=== PATIENT | female | born 1960 | race American Indian/Alaskan Native ===

== ENCOUNTER 2017-11-27 12:33 | Emergency (ER) | payer MEDICAID ==
[2017-11-27] MEDS ORDERED: PROVENTIL IH ONE (12:40)
[2017-11-27] MEDS ORDERED: ATROVENT IH ONE (12:40)
--- NOTE | 2017-11-27 12:40 | Emergency Department Report ---
ED Shortness of Breath HPI - General Stated Complaint: CHEST PAIN/GIA Time Seen by Provider: 11/27/17 12:37 Source: patient - History of Present Illness Initial Comments: Ms. Swenson has hx of COPD HTN and HIV who presents with shortness of breath and chest pain. EMS informed me that she had decreased breath sounds and wheezes prior to treatment which included bronchodilator therapy and solumedrol. Ms. Swenson has sharp mid sternal pain associated with cough, no radiation, moderate severity. COPD exacerbations have been more frequent this winter season. Chest pain worse with inspiration and cough. Recent admission at [facility] for pneumococcal pna. She is on a pain management program for diabetic neuropathy. She takes Oxycodone [address] Marte. Patient lives in [place]. MD Complaint: shortness of breath, cough -: Gradual (2 days), days(s) Severity: moderate Pain Scale: 7 Quality: dull, sharp (dull sharp chest pain) Improves With: bronchodilators Known History Of: COPD, HIV - Related Data Allergies Allergy/AdvReac Type Severity Reaction Status Date / Time aspirin AdvReac Unknown Verified 11/27/17 12:54 ED Review of Systems ROS: Stated complaint: CHEST PAIN/GIA Other details as noted in HPI ED Physical Exam - General General appearance: alert, in no apparent distress - Head Head exam: Present: atraumatic, normocephalic - Eye Eye exam: Present: normal appearance - ENT ENT exam: Present: normal exam, mucous membranes moist - Neck Neck exam: Present: normal inspection - Respiratory Respiratory exam: Present: normal lung sounds bilaterally. Absent: respiratory distress, wheezes, rales, rhonchi - Cardiovascular Cardiovascular Exam: Present: regular rate, normal rhythm. Absent: systolic murmur, diastolic murmur, rubs, gallop - GI/Abdominal GI/Abdominal exam: Present: soft, normal bowel sounds. Absent: distended, tenderness, guarding, rebound - Extremities Exam Extremities exam: Present: normal inspection - Back Exam Back exam: Present: normal inspection - Neurological Exam Neurological exam: Present: alert, oriented X3 - Psychiatric Psychiatric exam: Present: normal affect, normal mood - Skin Skin exam: Present: warm, dry, intact, normal color. Absent: rash ED Course Vital Signs 11/27/17 11/27/17 11/27/17 13:55 14:02 14:09 Temperature 97.8 F Pulse Rate 94 H Pulse Rate [ Bilateral] Respiratory 24 24 24 Rate Respiratory Rate [Bilateral ] Blood Pressure 109/65 [Right] O2 Sat by Pulse 95 Oximetry 11/27/17 11/27/17 14:15 14:26 Temperature Pulse Rate Pulse Rate [ 86 88 Bilateral] Respiratory Rate Respiratory 16 16 Rate [Bilateral ] Blood Pressure [Right] O2 Sat by Pulse Oximetry ED Medical Decision Making - Lab Data Result diagrams: 11/27/17 13:16 11/27/17 13:16 - EKG Data -: EKG Interpreted by Me EKG shows normal: sinus rhythm, axis, intervals, QRS complexes, ST-T waves Rate: normal (rate 90 bpm no evidence of right heart strain, normal EKG) - Medical Decision Making Ms. Swenson presents with chest pain atypical for ACS. No indication of PE. Normal EKG. No tachycardia. Relative and patient attribute pain to heartburn. She has tried several medications. I encouraged f/u with Dr. Marte her PCP. I have provided 3 tabs of oxycodone. She is on a pain management program. She is attempting to find another pain management program. Dc'd home Critical care attestation.: If time is entered above; I have spent that time in minutes in the direct care of this critically ill patient, excluding procedure time. ED Disposition Clinical Impression: Chest pain Disposition: DC-01 TO HOME OR SELFCARE Is pt being admited?: No Does the pt Need Aspirin: No Condition: Stable Instructions: Chest Pain (ED), Noncardiac Chest Pain (ED) Referrals: PRIMARY CARE, [Primary Care Provider] - 3-5 Days Time of Disposition: 16:09
[2017-11-27] MEDS ORDERED: ZOFRAN IV ONE (12:42)
[2017-11-27] MEDS ORDERED: MORPHINE IV ONE (12:42)
[2017-11-27] MEDS ORDERED: ROXICODONE PO ONE (13:10)
[2017-11-27 13:37] LABS: Basophils % (Auto) 0.2 % (0.0-1.8); Eosinophils # (Auto) 0.1 K/mm3 (0.0-0.4); Eosinophils % (Auto) 1.6 % (0.0-4.3); Hematocrit 34.8 % (30.3-42.9); Lymphocytes # (Auto) 2.1 K/mm3 (1.2-5.4); Lymphocytes % (Auto) 36.4 % (13.4-35.0); Mean Corpuscular HGB Conc 32 % (30-34); Mean Corpuscular Hemoglobin 29 pg (28-32); Mean Corpuscular Volume 93 fl (79-97); Monocytes # (Auto) 0.3 K/mm3 (0.0-0.8); Monocytes % (Auto) 5.3 % (0.0-7.3); Platelet Count 222 K/mm3 (140-440); Red Blood Count 3.75 M/mm3 (3.65-5.03); Red Cell Distribution Width 15.3 % (13.2-15.2)
[2017-11-27 13:49] LABS: Alanine Aminotransferase 16 units/L (7-56); Albumin 3.8 g/dL (3.9-5); BUN/Creatinine Ratio 19; Blood Urea Nitrogen 13 mg/dL (7-17); Calcium 8.7 mg/dL (8.4-10.2); Hemolysis Index 0
--- NOTE | 2017-11-27 14:57 | XRay Report ---
FINAL REPORT PROCEDURE: XR CHEST 1V AP TECHNIQUE: Chest radiograph anteroposterior view. CPT 36103 HISTORY: Dyspnea COMPARISON: No prior studies are available for comparison. FINDINGS: Heart: Normal. Mediastinum/Vessels: Normal. Lungs/Pleural space: No infiltrate, effusion, or pneumothorax. Bony thorax: No acute osseous abnormality. Life support devices: None. IMPRESSION: No radiographic evidence of acute cardiopulmonary abnormality.
[2017-11-27] MEDS ORDERED: ALUM-MAG HYDROX-SIMETH 200-200-20MG/5ML PO ONE (16:05)
[2017-11-27 16:38] VITALS: BP 122/76
== END 2017-11-27 16:46 | disposition home or self-care (01) ==
LOC: ED 12:33
DX: R07.9 Chest pain, unspecified (principal)
CPT/HCPCS: 36415; 71045; 80053; 84484; 85025; 87040; 93005; 93010; 94640; 96374; 96375; 99284; J2270; J2405

== ENCOUNTER 2020-10-05 10:41 | Emergency (ER) | payer MEDICAID ==
[2020-10-05] MEDS ORDERED: MAGNESIUM SULFATE 2 GM/50 ML BAG IV ONE (11:43)
[2020-10-05] MEDS ORDERED: dexAMETHasone 20 MG/5 ML VIAL IV ONE (11:43)
[2020-10-05] MEDS ORDERED: IPRATROPIUM 0.02% NEBU 2.5 ML IH ONE ×2 (11:43)
[2020-10-05] MEDS ORDERED: ALBUTEROL 2.5 MG/3 ML NEBU IH ONE (11:43)
[2020-10-05 12:02] LABS: Basophils % (Auto) 0.5 % (0.0-1.8); Eosinophils % (Auto) 0.8 % (0.0-4.3); Hematocrit 40.4 % (30.3-42.9); Hemoglobin 13.5 gm/dl (10.1-14.3); Lymphocytes # (Auto) 2.1 K/mm3 (1.2-5.4); Lymphocytes % (Auto) 36.5 % (13.4-35.0); Mean Corpuscular HGB Conc 33 % (30-34); Mean Corpuscular Volume 91 fl (79-97); Monocytes # (Auto) 0.4 K/mm3 (0.0-0.8); Platelet Count 186 K/mm3 (140-440); Red Blood Count 4.42 M/mm3 (3.65-5.03); Red Cell Distribution Width 14.7 % (13.2-15.2)
--- NOTE | 2020-10-05 12:10 | Emergency Department Report ---
ED Shortness of Breath HPI - General Chief Complaint: Dyspnea/Respdistress Stated Complaint: ASTHMA/COLD SYM Time Seen by Provider: 10/05/20 11:43 Source: patient Mode of arrival: Ambulatory Limitations: No Limitations - History of Present Illness Initial Comments: 60-year-old -[place] female presents to the emergency room reporting shortness of breath and productive cough for few days. Patient has a past medical history of diabetes hypertension HIV. Denies any fever no chills no nausea no vomiting. MD Complaint: shortness of breath, cough Onset/Timin -: days(s) Pain Scale: 3 Consistency: constant Improves With: nothing Known History Of: diabetes, HIV - Related Data Previous Rx's Medication Instructions Recorded Last Taken Type Oxycodone HCl [Oxycodone HCl 10mg 10 mg PO Q8H PRN #3 tablet 11/27/17 Unknown Rx tab] HYDROcodone/APAP 5-325 [Draper 1 each PO Q6HR PRN #12 tablet 05/29/20 Unknown Rx 5/325] Albuterol Sulfate [Proventil Hfa] 6.7 gm IH QID #1 hfa.aer.ad 10/05/20 Unknown Rx Nitrofurantoin Barton/M-Cryst 100 mg PO Q12HR 7 Days #14 capsule 10/05/20 Unknown Rx [Macrobid CAP] predniSONE [Deltasone] 40 mg PO QDAY 5 Days #10 tab 10/05/20 Unknown Rx Allergies Allergy/AdvReac Type Severity Reaction Status Date / Time No Known Allergies Allergy Unverified 05/29/20 17:04 ED Review of Systems ROS: Stated complaint: ASTHMA/COLD SYM Other details as noted in HPI ED Past Medical Hx - Past Medical History Previous Medical History?: Yes Hx Hypertension: Yes Hx Diabetes: Yes Hx HIV: Yes Additional medical history: squamous cell carcinoma, - Surgical History Past Surgical History?: Yes Additional Surgical History: skin graft, cancer removed from vulva, d&c - Social History Smoking Status: Current Every Day Smoker Substance Use Type: Alcohol, Prescribed - Medications Home Medications: Home Medications Medication Instructions Recorded Confirmed Last Taken Type Oxycodone HCl [Oxycodone HCl 10mg 10 mg PO Q8H PRN #3 tablet 11/27/17 Unknown Rx tab] HYDROcodone/APAP 5-325 [[place]per 1 each PO Q6HR PRN #12 tablet 05/29/20 Unknown Rx 5/325] Albuterol Sulfate [Proventil Hfa] 6.7 gm IH QID #1 hfa.aer.ad 10/05/20 Unknown Rx Nitrofurantoin [place]/M-Cryst 100 mg PO Q12HR 7 Days #14 capsule 10/05/20 Unknown Rx [Macrobid CAP] predniSONE [Deltasone] 40 mg PO QDAY 5 Days #10 tab 10/05/20 Unknown Rx ED Physical Exam - General Limitations: No Limitations General appearance: alert, in no apparent distress, in distress - Head Head exam: Present: atraumatic, normocephalic - Eye Eye exam: Present: normal appearance - Respiratory Respiratory exam: Present: normal lung sounds bilaterally, respiratory distress, wheezes, rhonchi, accessory muscle use - Cardiovascular Cardiovascular Exam: Present: tachycardia - Neurological Exam Neurological exam: Present: alert, oriented X3 - Psychiatric Psychiatric exam: Present: normal affect, normal mood - Skin Skin exam: Present: warm, dry, intact, normal color. Absent: rash ED Course Vital Signs 10/05/20 10/05/20 10/05/20 10:51 12:00 15:49 Temperature 97.8 F Pulse Rate 95 H Pulse Rate [ 94 H Anterior Bilateral Throughout] Respiratory 28 H 18 Rate Respiratory 25 H Rate [Anterior Bilateral Throughout] Blood Pressure 165/89 O2 Sat by Pulse 98 Oximetry 10/05/20 15:50 Temperature Pulse Rate Pulse Rate [ Anterior Bilateral Throughout] Respiratory 18 Rate Respiratory Rate [Anterior Bilateral Throughout] Blood Pressure O2 Sat by Pulse Oximetry ED Medical Decision Making - Lab Data Result diagrams: 10/05/20 11:52 10/05/20 11:52 - Radiology Data Radiology results: report reviewed Referring Physician:JUSTICE HOLLINGSWORTHPatient Name:MICHAEL CARTAGENATPatient ID:[id number] of :[id number]:FemaleAccession:[id number] Date:3687-01-99Nvodrb Status:Finalized Findings [facility] [address] [place] [address] XRay Report Signed Patient: MICHAEL RAVI MR#: [id number] : 1960 Acct:[id number] Age/Sex: 60 / F ADM Date: 10/05/20 Loc: ED Attending Dr: Ordering Physician: RALEIGH DE LA CRUZ Date of Service: 10/05/20 Procedure(s): XR chest 1V ap Accession Number(s): [id number] cc: RALEIGH DE LA CRUZ Fluoro Time In Minutes: CHEST 1 VIEW 10/05/2020 12:28 PM INDICATION / CLINICAL INFORMATION: SOB, cough. COMPARISON: 05/29/2020 FINDINGS: SUPPORT DEVICES: None. HEART / MEDIASTINUM: No significant abnormality. LUNGS / PLEURA: No significant pulmonary or pleural abnormality. No pneumothorax. ADDITIONAL FINDINGS: No significant additional findings. IMPRESSION: 1. No acute findings. Signer Name: Johnathan Bush MD Signed: 10/05/2020 1:40 PM Workstation Name: [id number] Transcribed By: TL Dictated By: Johnathan Bush MD Electronically Authenticated By: Johnathan Bush MD Signed Date/Time: 10/05/20 1340 DD/ 1339 TD/TT: - Medical Decision Making 60-year-old -[place] female presents to the emergency room reporting shortness of breath and productive cough for few days. Patient has a past medical history of diabetes hypertension HIV. Denies any fever no chills no nausea no vomiting. Critical care attestation.: If time is entered above; I have spent that time in minutes in the direct care of this critically ill patient, excluding procedure time. ED Disposition Clinical Impression: COPD exacerbation, UTI (urinary tract infection), Chronic back pain greater than 3 months duration Disposition: DC- TO HOME OR SELFCARE Is pt being admited?: No Does the pt Need Aspirin: No Condition: Stable Instructions: Chronic Obstructive Pulmonary Disease (ED), Chronic Obstructive Pulmonary Disease Exacerbation, Edur-gr-Fhec, Urinary Tract Infection, Adult, Afad-ho-[id number] Additional Instructions: Complete antibiotics for your urinary tract infection. Continue with your chronic pain medication from the pain management provider. And use inhaler as needed for shortness of breath and cough. Follow-up with your primary care provider and specialist. Prescriptions: predniSONE [Deltasone] 40 mg PO QDAY 5 Days #10 tab Nitrofurantoin Barton/M-Cryst [Macrobid CAP] 100 mg PO Q12HR 7 Days #14 capsule Albuterol Sulfate [Proventil Hfa] 6.7 gm IH QID #1 hfa.aer.ad Referrals: PRIMARY CARE, [Primary Care Provider] - 3-5 Days Forms: Work/School Release Form(ED)
[2020-10-05 12:24] LABS: Alanine Aminotransferase 14 units/L (7-56); Albumin 3.9 g/dL (3.9-5); Blood Urea Nitrogen 9 mg/dL (7-17); Calcium 9.5 mg/dL (8.4-10.2); Hemolysis Index 4
[2020-10-05 12:25] LABS: BUN/Creatinine Ratio 15
--- NOTE | 2020-10-05 13:44 | XRay Report ---
CHEST 1 VIEW 10/05/2020 12:28 PM INDICATION / CLINICAL INFORMATION: SOB, cough. COMPARISON: 05/29/2020 FINDINGS: SUPPORT DEVICES: None. HEART / MEDIASTINUM: No significant abnormality. LUNGS / PLEURA: No significant pulmonary or pleural abnormality. No pneumothorax. ADDITIONAL FINDINGS: No significant additional findings. IMPRESSION: 1. No acute findings. Signer Name: Johnathan Bush MD Signed: 10/05/2020 1:40 PM Workstation Name: [id number]
[2020-10-05] MEDS ORDERED: IBUPROFEN 600 MG TAB PO ONE (14:34)
[2020-10-05] MEDS ORDERED: oxyCODONE 5 MG TAB PO ONE (14:52)
[2020-10-05 15:48] LABS: Bacteria,Urine 1+ /HPF (Negative); Mucus,Urine 2+ /HPF
[2020-10-05 16:06] LABS: Color,Urine Yellow (Yellow)
[2020-10-05 16:07] LABS: Bilirubin,Urine Negative (Negative); Blood,Urine Negative (Negative); Protein,Urine <30 mg dL mg/dL (Negative); Urobilinogen,Urine < 0.2 mg/dL (<2.0)
[2020-10-05 16:21] VITALS: BP 156/88
== END 2020-10-05 16:21 | disposition home or self-care (01) ==
LOC: ED 10:41
DX: J44.1 Chronic obstructive pulmonary disease with (acute) exacerbation (principal); N39.0 Urinary tract infection, site not specified; M54.5 Low back pain; G89.29 Other chronic pain; I10 Essential (primary) hypertension; E11.9 Type 2 diabetes mellitus without complications; Z21 Asymptomatic human immunodeficiency virus [HIV] infection status; F17.200 Nicotine dependence, unspecified, uncomplicated; Z98.890 Other specified postprocedural states; Z79.899 Other long term (current) drug therapy
CPT/HCPCS: 36415; 71045; 80053; 81001; 85025; 87086; 94644; 96365; 96366; 96375; 99284; J1100; J3475

== ENCOUNTER 2020-12-13 11:38 | Inpatient (IN) | payer MEDICAID ==
[2020-12-13] MEDS ORDERED: ALTEPLASE 100 MG INJ KIT IV ONE ×2 (11:49)
[2020-12-13] MEDS ORDERED: SODIUM CHLORIDE 0.9% 50 ML IVPB IV ONE (11:49)
[2020-12-13 12:08] LABS: Basophils % (Auto) 0.5 % (0.0-1.8); Eosinophils # (Auto) 0.2 K/mm3 (0.0-0.4); Eosinophils % (Auto) 3.4 % (0.0-4.3); Hematocrit 39.1 % (30.3-42.9); Hemoglobin 13.2 gm/dl (10.1-14.3); Lymphocytes % (Auto) 31.4 % (13.4-35.0); Mean Corpuscular HGB Conc 34 % (30-34); Mean Corpuscular Volume 94 fl (79-97); Monocytes # (Auto) 0.3 K/mm3 (0.0-0.8); Monocytes % (Auto) 4.9 % (0.0-7.3); Platelet Count 177 K/mm3 (140-440); Red Blood Count 4.18 M/mm3 (3.65-5.03); Red Cell Distribution Width 16.5 % (13.2-15.2)
--- NOTE | 2020-12-13 12:17 | Consultation ---
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 NIHSS 13. TPA administered w/o complication. CTA H and N ordered r/o LVO. Metrics: Last Known Well: 12/13/2020 11:00:00 [facility] Notification Time: 12/13/2020 11:25:45 Arrival Time: 12/13/2020 11:30:00 Stamp Time: 12/13/2020 11:26:21 Time First Login Attempt: 12/13/2020 11:30:21 Symptoms: left hand weakness NIHSS Start Assessment Time: 12/13/2020 11:41:00 Alteplase Early Mix Decision Time: 12/13/2020 11:44:00 Patient is a candidate for Alteplase/Activase. Alteplase Medical Decision: 12/13/2020 11:45:03 Alteplase/Activase CPOE Order Time: 12/13/2020 11:50:16 Needle Time: 12/13/2020 12:15:08 Weight Noted by Staff: 94 kg Reason for Alteplase/Activase Delay: Delays related to alteplase Administration CT head showed no acute hemorrhage or acute core infarct. Clinical Presentation is Suggestive of Large Vessel Occlusive Disease, Recommendations are as Follows CTA Head and Neck. ED Physician notified of diagnostic impression and management plan on 12/13/2020 12:15:31 Alteplase/Activase Contraindications: Last Known Well > 4.5 hours: No CT Head showing hemorrhage: No Ischemic stroke within 3 months: No Severe head trauma within 3 months: No Intracranial/intraspinal surgery within 3 months: No History of intracranial hemorrhage: No Symptoms and signs consistent with an SAH: No GI malignancy or GI bleed within 21 days: No Coagulopathy: Platelets <100 000/mm3, INR >1.7, aPTT>40 s, or PT >15 s: No Treatment dose of LMWH within the previous 24 hrs: No Use of NOACs in past 48 hours: No Glycoprotein IIb/IIIa receptor inhibitors use: No Symptoms consistent with infective endocarditis: No Suspected aortic arch dissection: No Intra-axial intracranial neoplasm: No Verbal Consent to Alteplase/Activase: I have explained to the Patient the nature of the patients condition, reviewed the indications and contraindications to the use of Alteplase/Activase fibrinolytic agent, reviewed the indications and contraindications and the benefits to be reasonably expected compared with alternative approaches. I have discussed the likelihood of major risks or complications of this procedure including (if applicable) but not limited to loss of limb function, brain damage, paralysis, hemorrhage, infection, complications from transfusion of blood components, drug reactions, blood clots and loss of life. I have also indicated that with any procedure there is always the possibility of an unexpected complication. All questions were answered and Patient express understanding of the treatment plan and consent to the treatment. Our recommendations are outlined below. Recommendations: IV Alteplase/Activase recommended. Alteplase/Activase bolus given Without Complication. IV Alteplase/Activase Total Dose 84.6 mg IV Alteplase/Activase Bolus Dose 8.5 mg IV Alteplase/Activase Infusion Dose - 76.1 mg Routine post Alteplase/Activase monitoring including neuro checks and blood pressure control during/after treatment Monitor blood pressure Check blood pressure and NIHSS every 15 min for 2 h, then every 30 min for 6 h, and finally every hour for 16 h. Manage Blood Pressure per post Alteplase/Activase protocol. Admission to ICU CT brain 24 hours post Alteplase/Activase NPO until swallowing screen performed and passed No antiplatelet agents or anticoagulants (including heparin for DVT prophylaxis) in first 24 hours No Mccormack catheter, nasogastric tube, arterial catheter or central venous catheter for 24 hr, unless absolutely necessary Telemetry Bedside swallow evaluation HOB less than 30 degrees Euglycemia Avoid hyperthermia, PRN acetaminophen DVT prophylaxis Inpatient Neurology Consultation Stroke evaluation as per inpatient neurology recommendations Discussed with ED physician History of Present Illness: Patient is a 60 year old Female. Patient was brought by EMS for symptoms of left hand weakness 60 year old woman with past medical history of hypertension, diabetes mellitus and copd, gerd and HIV presenting with acute onset left sided weakness. She uses walker at baseline. She denies taking blood thinners. She says she is prone to falls due to vertigo. Last seen normal was within 4.5 hours. There is no history of hemorrhagic complications or intracranial hemorrhage. There is no history of Recent Anticoagulants. There is no history of recent major surgery. There is no history of recent stroke. Past Medical History: Hypertension Diabetes Mellitus Hyperlipidemia Anticoagulant use: No Antiplatelet use: No Examination: BP(189/63), Pulse(100), Blood Glucose(363) 1A: Level of Consciousness - Alert; keenly responsive + 0 1B: Ask Month and Age - Both Questions Right + 0 1C: Blink Eyes & Squeeze Hands - Performs Both Tasks + 0 2: Test Horizontal Extraocular Movements - Normal + 0 3: Test Visual Infante - No Visual Loss + 0 4: Test Facial Palsy (Use Grimace if Obtunded) - Partial paralysis (lower face) + 2 5A: Test Left Arm Motor Drift - No Movement + 4 5B: Test Right Arm Motor Drift - No Drift for 10 Seconds + 0 6A: Test Left Leg Motor Drift - No Movement + 4 6B: Test Right Leg Motor Drift - No Drift for 5 Seconds + 0 7: Test Limb Ataxia (FNF/Heel-Gonzalez) - No Ataxia + 0 8: Test Sensation - Complete Loss: Cannot Sense Being Touched At All + 2 9: Test Language/Aphasia - Normal; No aphasia + 0 10: Test Dysarthria - Mild-Moderate Dysarthria: Slurring but can be understood + 1 11: Test Extinction/Inattention - No abnormality + 0 NIHSS Score: 13 Pre-Morbid Modified Ranking Scale: 3 Points = Moderate disability; requiring some help, but able to walk without assistance Patient/Family was informed the Neurology Consult would occur via TeleHealth consult by way of interactive audio and video telecommunications and consented to receiving care in this manner. Due to the immediate potential for life-threatening deterioration due to underlying acute neurologic illness, I spent 47 minutes providing critical care. This time includes time for face to face visit via telemedicine, review of medical records, imaging studies and discussion of findings with providers, the patient and/or family. Dr Jocelin Hutchison [facility] Case [id number] Medications and Allergies Allergies Allergy/AdvReac Type Severity Reaction Status Date / Time No Known Allergies Allergy Unverified 05/29/20 17:04 Home Medications Medication Instructions Recorded Confirmed Last Taken Type Oxycodone HCl [Oxycodone HCl 10mg 10 mg PO Q8H PRN #3 tablet 11/27/17 Unknown Rx tab] HYDROcodone/APAP 5-325 [[place]bell 1 each PO Q6HR PRN #12 tablet 05/29/20 Unknown Rx 5/325] Albuterol Sulfate [Proventil Hfa] 6.7 gm IH QID #1 hfa.aer.ad 10/05/20 Unknown Rx Nitrofurantoin [place]/M-Cryst 100 mg PO Q12HR 7 Days #14 capsule 10/05/20 Unknown Rx [Macrobid CAP] predniSONE [Deltasone] 40 mg PO QDAY 5 Days #10 tab 10/05/20 Unknown Rx Results - Labs CBC & Chem 7: 12/13/20 11:57 Labs: Abnormal lab results 12/13/20 Range/Units 11:57 RDW 16.5 H (13.2-15.2) %
[2020-12-13 12:20] LABS: INR 1.03 (0.87-1.13); Partial Thromboplastin Time 30.6 Sec. (24.2-36.6)
--- NOTE | 2020-12-13 12:22 | Cat Scan Report ---
CT head/brain wo con INDICATION / CLINICAL INFORMATION: 60 years Female; MAIN. TECHNIQUE: Routine CT head without contrast. All CT scans at this location are performed using CT dos e reduction for ALARA by means of automated exposure control. COMPARISON: None. FINDINGS: BRAIN / INTRACRANIAL CONTENTS: No acute hemorrhage, mass effect, midline shift, hydrocephalus, or acu te, large territorial infarct. No signs of significant atrophy or chronic infarct. No significant whi te matter abnormality seen. CRANIOCERVICAL JUNCTION: No significant abnormality. ORBITS: No significant abnormality of visualized orbits. SINUSES / MASTOIDS: Visualized paranasal sinuses and mastoid air cells are essentially clear. ADDITIONAL FINDINGS: None. IMPRESSION: 1. No focal mass, hemorrhage, hydrocephalus, or acute, large territorial infarct. CODE STROKE: Exam Completed (HOTBED TRANSFER OPERATOR/CDT): 12/13/2020 1050 AM Exam Reviewed (HOTBED TRANSFER OPERATOR/CDT): 11:10 AM Time of Communication (HOTBED TRANSFER OPERATOR/CDT): 11:15 AM Licensed Practitioner Receiving Report: Dr. Stein Signer Name: Thomas Chanel MD, III Signed: 12/13/2020 12:17 PM Workstation Name: [email or web address] [id number]
[2020-12-13 12:24] LABS: BUN/Creatinine Ratio 9; Blood Urea Nitrogen 6 mg/dL (7-17); Calcium 9.4 mg/dL (8.4-10.2); Hemolysis Index 2
--- NOTE | 2020-12-13 12:32 | Emergency Department Report ---
HPI - General Chief Complaint: Neuro Symptoms/Deficit Time Seen by Provider: 12/13/20 11:44 - HPI HPI: This is a 60-year-old -[place]iqu[place] female presents to the emergency department via EMS from home with complaint of left-sided pain, followed by left -sided weakness. This began about 40 minutes prior to presentation. It is associated with some left-sided numbness and some difficulty with her speech. The patient was found to be unable to lift or move her left arm or her left leg. She has a past medical history of HIV, diabetes, hypertension, vertigo, GERD and COPD. The patient uses a walker to ambulate at baseline. She did not take anything or receive anything for symptoms prior to presentation today. No recent travel or sick contacts at home. ED Past Medical Hx - Past Medical History Hx Hypertension: Yes Hx Diabetes: Yes Hx HIV: Yes Additional medical history: squamous cell carcinoma, - Surgical History Additional Surgical History: skin graft, cancer removed from vulva, d&c - Social History Smoking Status: Current Every Day Smoker Substance Use Type: Alcohol, Marijuana - Medications Home Medications: Home Medications Medication Instructions Recorded Confirmed Last Taken Type Oxycodone HCl [Oxycodone HCl 10mg 10 mg PO Q8H PRN #3 tablet 11/27/17 Unknown Rx tab] HYDROcodone/APAP 5-325 [Zenda 1 each PO Q6HR PRN #12 tablet 05/29/20 Unknown Rx 5/325] Albuterol Sulfate [Proventil Hfa] 6.7 gm IH QID #1 hfa.aer.ad 10/05/20 Unknown Rx Nitrofurantoin Bradford/M-Cryst 100 mg PO Q12HR 7 Days #14 capsule 10/05/20 Unknown Rx [Macrobid CAP] predniSONE [Deltasone] 40 mg PO QDAY 5 Days #10 tab 10/05/20 Unknown Rx ED Review of Systems ROS: Stated complaint: WEAK/DISORIENTED Other details as noted in HPI Comment: All other systems reviewed and negative Constitutional: denies: chills, fever Eyes: denies: eye pain, vision change ENT: denies: ear pain, throat pain Respiratory: denies: cough, shortness of breath Cardiovascular: denies: chest pain, palpitations Gastrointestinal: denies: abdominal pain, vomiting Genitourinary: denies: dysuria, discharge Musculoskeletal: myalgia. denies: back pain Skin: denies: rash, lesions Neurological: headache, weakness, numbness Physical Exam - Physical Exam Vital Signs: Vital Signs 12/13/20 12/13/20 12:21 12:22 Temperature 98.5 F Pulse Rate 100 H Respiratory 14 Rate Blood Pressure 181/91 [Left] O2 Sat by Pulse 98 Oximetry Physical Exam: GENERAL: The patient is well-developed well-nourished. HENT: Normocephalic. Atraumatic. Patient has moist mucous membranes. EYES: Extraocular motions are intact. NECK: Supple. Trachea is midline. CHEST/LUNGS: Clear to auscultation. There is no respiratory distress noted. HEART/CARDIOVASCULAR: Regular. There is no tachycardia. There is no murmur. ABDOMEN: Abdomen is soft, nontender. Patient has normal bowel sounds. There is no abdominal distention. SKIN: Skin is warm and dry. NEURO: The patient is awake, alert, and oriented. The patient is cooperative. Right-sided nasolabial fold paresis. Left-sided hemiplegia. Numbness to the left side of the face, left upper and lower extremities. MUSCULOSKELETAL: There is no tenderness or deformity. Radial pulse +2/4 and capillary refill less than 2 seconds to the bilateral upper extremities. ED Course Vital Signs 12/13/20 12/13/20 12:21 12:22 Temperature 98.5 F Pulse Rate 100 H Respiratory 14 Rate Blood Pressure 181/91 [Left] O2 Sat by Pulse 98 Oximetry - Consultations Consultation #1: 12/13/20 12:31 The patient was seen by the telemedicine neurologist, Dr. Kitchen, immediately upon arrival and through the patient's initial CT scan of the head without contrast. Dr. Kitchen give the patient a NIH stroke scale of 13. The patient is inside of the TPA window and she has recommended that that TPA be given, followed by CT angiography of the head and neck. ED Medical Decision Making - Lab Data Result diagrams: 12/13/20 11:57 12/13/20 11:57 Lab Results 12/13/20 12/13/20 12/13/20 Range/Units 11:57 11:57 11:57 WBC 6.4 (4.5-11.0) K/mm3 RBC 4.18 (3.65-5.03) M/mm3 Hgb 13.2 (10.1-14.3) gm/dl Hct 39.1 (30.3-42.9) % MCV 94 (79-97) fl MCH 32 (28-32) pg MCHC 34 (30-34) % RDW 16.5 H (13.2-15.2) % Plt Count 177 (140-440) K/mm3 Lymph % (Auto) 31.4 (13.4-35.0) % Bradford % (Auto) 4.9 (0.0-7.3) % Eos % (Auto) 3.4 (0.0-4.3) % Baso % (Auto) 0.5 (0.0-1.8) % Lymph # (Auto) 2.0 (1.2-5.4) K/mm3 Bradford # (Auto) 0.3 (0.0-0.8) K/mm3 Eos # (Auto) 0.2 (0.0-0.4) K/mm3 Baso # (Auto) 0.0 (0.0-0.1) K/mm3 Seg Neutrophils % 59.8 (40.0-70.0) % Seg Neutrophils # 3.9 (1.8-7.7) K/mm3 PT 13.3 (12.2-14.9) Sec. INR 1.03 (0.87-1.13) APTT 30.6 (24.2-36.6) Sec. Thrombin Time (15.1-19.6) Sec. Sodium 138 (137-145) mmol/L Potassium 3.9 (3.6-5.0) mmol/L Chloride 102.1 (98-107) mmol/L Carbon Dioxide 22 (22-30) mmol/L Anion Gap 18 mmol/L BUN 6 L (7-17) mg/dL Creatinine 0.7 (0.6-1.2) mg/dL Estimated GFR > 60 ml/min BUN/Creatinine Ratio 9 % Glucose 320 H (65-100) mg/dL Calcium 9.4 (8.4-10.2) mg/dL Total Bilirubin (0.1-1.2) mg/dL Direct Bilirubin (0-0.2) mg/dL Indirect Bilirubin mg/dL AST (5-40) units/L ALT (7-56) units/L Alkaline Phosphatase (35-129) units/L Ammonia (25-60) umol/L Troponin T < 0.010 (0.00-0.029) ng/mL Total Protein (6.3-8.2) g/dL Albumin (3.9-5) g/dL Albumin/Globulin Ratio % TSH (0.270-4.200) mlU/mL Urine Color (Yellow) Urine Turbidity (Clear) Urine pH (5.0-7.0) Ur Specific [place] (1.003-1.030) Urine Protein (Negative) mg/dL Urine Glucose (UA) (Negative) mg/dL Urine Ketones (Negative) mg/dL Urine Blood (Negative) Urine Nitrite (Negative) Urine Bilirubin (Negative) Urine Urobilinogen (<2.0) mg/dL Ur Leukocyte Esterase (Negative) Urine WBC (Auto) (0.0-6.0) /HPF Urine RBC (Auto) (0.0-6.0) /HPF U Epithel Cells (Auto) (0-13.0) /HPF Urine Mucus /HPF Urine Opiates Screen Urine Methadone Screen Ur Barbiturates Screen Ur Phencyclidine Scrn Ur Amphetamines Screen U Benzodiazepines Scrn Urine Cocaine Screen U Marijuana (THC) Screen Drugs of Abuse Note Plasma/Serum Alcohol (0-0.07) % 12/13/20 12/13/20 12/13/20 Range/Units 11:57 12:21 12:21 WBC (4.5-11.0) K/mm3 RBC (3.65-5.03) M/mm3 Hgb (10.1-14.3) gm/dl Hct (30.3-42.9) % MCV (79-97) fl MCH (28-32) pg MCHC (30-34) % RDW (13.2-15.2) % Plt Count (140-440) K/mm3 Lymph % (Auto) (13.4-35.0) % Bradford % (Auto) (0.0-7.3) % Eos % (Auto) (0.0-4.3) % Baso % (Auto) (0.0-1.8) % Lymph # (Auto) (1.2-5.4) K/mm3 Bradford # (Auto) (0.0-0.8) K/mm3 Eos # (Auto) (0.0-0.4) K/mm3 Baso # (Auto) (0.0-0.1) K/mm3 Seg Neutrophils % (40.0-70.0) % Seg Neutrophils # (1.8-7.7) K/mm3 PT (12.2-14.9) Sec. INR (0.87-1.13) APTT (24.2-36.6) Sec. Thrombin Time 16.9 (15.1-19.6) Sec. Sodium (137-145) mmol/L Potassium (3.6-5.0) mmol/L Chloride (98-107) mmol/L Carbon Dioxide (22-30) mmol/L Anion Gap mmol/L BUN (7-17) mg/dL Creatinine (0.6-1.2) mg/dL Estimated GFR ml/min BUN/Creatinine Ratio % Glucose (65-100) mg/dL Calcium (8.4-10.2) mg/dL Total Bilirubin < 0.20 (0.1-1.2) mg/dL Direct Bilirubin < 0.2 (0-0.2) mg/dL Indirect Bilirubin 0.0 mg/dL AST 11 (5-40) units/L ALT 32 (7-56) units/L Alkaline Phosphatase 119 (35-129) units/L Ammonia 41.0 (25-60) umol/L Troponin T (0.00-0.029) ng/mL Total Protein 7.2 (6.3-8.2) g/dL Albumin 4.0 (3.9-5) g/dL Albumin/Globulin Ratio 1.3 % TSH (0.270-4.200) mlU/mL Urine Color (Yellow) Urine Turbidity (Clear) Urine pH (5.0-7.0) Ur Specific [place] (1.003-1.030) Urine Protein (Negative) mg/dL Urine Glucose (UA) (Negative) mg/dL Urine Ketones (Negative) mg/dL Urine Blood (Negative) Urine Nitrite (Negative) Urine Bilirubin (Negative) Urine Urobilinogen (<2.0) mg/dL Ur Leukocyte Esterase (Negative) Urine WBC (Auto) (0.0-6.0) /HPF Urine RBC (Auto) (0.0-6.0) /HPF U Epithel Cells (Auto) (0-13.0) /HPF Urine Mucus /HPF Urine Opiates Screen Urine Methadone Screen Ur Barbiturates Screen Ur Phencyclidine Scrn Ur Amphetamines Screen U Benzodiazepines Scrn Urine Cocaine Screen U Marijuana (THC) Screen Drugs of Abuse Note Plasma/Serum Alcohol (0-0.07) % 12/13/20 12/13/20 12/13/20 Range/Units 12:21 12:21 13:09 WBC (4.5-11.0) K/mm3 RBC (3.65-5.03) M/mm3 Hgb (10.1-14.3) gm/dl Hct (30.3-42.9) % MCV (79-97) fl MCH (28-32) pg MCHC (30-34) % RDW (13.2-15.2) % Plt Count (140-440) K/mm3 Lymph % (Auto) (13.4-35.0) % Bradford % (Auto) (0.0-7.3) % Eos % (Auto) (0.0-4.3) % Baso % (Auto) (0.0-1.8) % Lymph # (Auto) (1.2-5.4) K/mm3 Bradford # (Auto) (0.0-0.8) K/mm3 Eos # (Auto) (0.0-0.4) K/mm3 Baso # (Auto) (0.0-0.1) K/mm3 Seg Neutrophils % (40.0-70.0) % Seg Neutrophils # (1.8-7.7) K/mm3 PT (12.2-14.9) Sec. INR (0.87-1.13) APTT (24.2-36.6) Sec. Thrombin Time (15.1-19.6) Sec. Sodium (137-145) mmol/L Potassium (3.6-5.0) mmol/L Chloride (98-107) mmol/L Carbon Dioxide (22-30) mmol/L Anion Gap mmol/L BUN (7-17) mg/dL Creatinine (0.6-1.2) mg/dL Estimated GFR ml/min BUN/Creatinine Ratio % Glucose (65-100) mg/dL Calcium (8.4-10.2) mg/dL Total Bilirubin (0.1-1.2) mg/dL Direct Bilirubin (0-0.2) mg/dL Indirect Bilirubin mg/dL AST (5-40) units/L ALT (7-56) units/L Alkaline Phosphatase (35-129) units/L Ammonia (25-60) umol/L Troponin T (0.00-0.029) ng/mL Total Protein (6.3-8.2) g/dL Albumin (3.9-5) g/dL Albumin/Globulin Ratio % TSH 0.495 (0.270-4.200) mlU/mL Urine Color Straw (Yellow) Urine Turbidity Clear (Clear) Urine pH 6.0 (5.0-7.0) Ur Specific [place] 1.022 (1.003-1.030) Urine Protein <15 mg/dl (Negative) mg/dL Urine Glucose (UA) >=500 (Negative) mg/dL Urine Ketones Neg (Negative) mg/dL Urine Blood Neg (Negative) Urine Nitrite Neg (Negative) Urine Bilirubin Neg (Negative) Urine Urobilinogen < 2.0 (<2.0) mg/dL Ur Leukocyte Esterase Neg (Negative) Urine WBC (Auto) < 1.0 (0.0-6.0) /HPF Urine RBC (Auto) 1.0 (0.0-6.0) /HPF U Epithel Cells (Auto) < 1.0 (0-13.0) /HPF Urine Mucus Few /HPF Urine Opiates Screen Urine Methadone Screen Ur Barbiturates Screen Ur Phencyclidine Scrn Ur Amphetamines Screen U Benzodiazepines Scrn Urine Cocaine Screen U Marijuana (THC) Screen Drugs of Abuse Note Plasma/Serum Alcohol < 0.01 (0-0.07) % 12/13/20 Range/Units 13:09 WBC (4.5-11.0) K/mm3 RBC (3.65-5.03) M/mm3 Hgb (10.1-14.3) gm/dl Hct (30.3-42.9) % MCV (79-97) fl MCH (28-32) pg MCHC (30-34) % RDW (13.2-15.2) % Plt Count (140-440) K/mm3 Lymph % (Auto) (13.4-35.0) % Bradford % (Auto) (0.0-7.3) % Eos % (Auto) (0.0-4.3) % Baso % (Auto) (0.0-1.8) % Lymph # (Auto) (1.2-5.4) K/mm3 Bradford # (Auto) (0.0-0.8) K/mm3 Eos # (Auto) (0.0-0.4) K/mm3 Baso # (Auto) (0.0-0.1) K/mm3 Seg Neutrophils % (40.0-70.0) % Seg Neutrophils # (1.8-7.7) K/mm3 PT (12.2-14.9) Sec. INR (0.87-1.13) APTT (24.2-36.6) Sec. Thrombin Time (15.1-19.6) Sec. Sodium (137-145) mmol/L Potassium (3.6-5.0) mmol/L Chloride (98-107) mmol/L Carbon Dioxide (22-30) mmol/L Anion Gap mmol/L BUN (7-17) mg/dL Creatinine (0.6-1.2) mg/dL Estimated GFR ml/min BUN/Creatinine Ratio % Glucose (65-100) mg/dL Calcium (8.4-10.2) mg/dL Total Bilirubin (0.1-1.2) mg/dL Direct Bilirubin (0-0.2) mg/dL Indirect Bilirubin mg/dL AST (5-40) units/L ALT (7-56) units/L Alkaline Phosphatase (35-129) units/L Ammonia (25-60) umol/L Troponin T (0.00-0.029) ng/mL Total Protein (6.3-8.2) g/dL Albumin (3.9-5) g/dL Albumin/Globulin Ratio % TSH (0.270-4.200) mlU/mL Urine Color (Yellow) Urine Turbidity (Clear) Urine pH (5.0-7.0) Ur Specific [place] (1.003-1.030) Urine Protein (Negative) mg/dL Urine Glucose (UA) (Negative) mg/dL Urine Ketones (Negative) mg/dL Urine Blood (Negative) Urine Nitrite (Negative) Urine Bilirubin (Negative) Urine Urobilinogen (<2.0) mg/dL Ur Leukocyte Esterase (Negative) Urine WBC (Auto) (0.0-6.0) /HPF Urine RBC (Auto) (0.0-6.0) /HPF U Epithel Cells (Auto) (0-13.0) /HPF Urine Mucus /HPF Urine Opiates Screen Negative Urine Methadone Screen Negative Ur Barbiturates Screen Negative Ur Phencyclidine Scrn Negative Ur Amphetamines Screen Negative U Benzodiazepines Scrn Negative Urine Cocaine Screen Negative U Marijuana (THC) Screen Positive Drugs of Abuse Note Disclamer Plasma/Serum Alcohol (0-0.07) % - Radiology Data Radiology results: report reviewed CT head/brain wo con INDICATION / CLINICAL INFORMATION: 60 years Female; MAIN. TECHNIQUE: Routine CT head without contrast. All CT scans at this location are performed using CT dose reduction for ALARA by means of automated exposure control. COMPARISON: None. FINDINGS: BRAIN / INTRACRANIAL CONTENTS: No acute hemorrhage, mass effect, midline shift, hydrocephalus, or acute, large t erritorial infarct. No signs of significant atrophy or chronic infarct. No significant white matter abnormality seen. CRANIOCERVICAL JUNCTION: No significant abnormality. ORBITS: No significant abnormality of visualized orbits. SINUSES / MASTOIDS: Visualized paranasal sinuses and mastoid air cells are essentially clear. ADDITIONAL FINDINGS: None. IMPRESSION: 1. No focal mass, hemorrhage, hydrocephalus, or acute, large territorial infarct. CT angio neck INDICATION / CLINICAL INFORMATION: 60 years Female; r/o lvo stroke alert stat. TECHNIQUE: Thin cut axial images obtained through the head during IV bolus contrast administration. Sagittal, coronal, and 3 plane MIP reconstructions performed by the technologist. NASCET type criteria used evaluate stenoses. All CT scans at this location are performed using CT dose reduction for ALARA by means of automated exposure control. COMPARISON: None available. FINDINGS: ARCH: Normal aortic arch branching suggested. CAROTID ARTERIES: The visualized common and internal carotid arteries are widely patent. VERTEBRAL ARTERIES: Codominant vertebral system seen. No significant stenosis appreciated. ADDITIONAL FINDINGS: Thyroid gland is mildly prominent size with multiple nodules seen. Mild to moderate mucosal thickening seen in the ethmo ids. Prominent soft tissue is seen in the roof the nasopharynx, presumably related to reactive adenoidal tissue. Please clinically correlate. Prominent nodes are seen in the mediastinum. There may be patchy airspace disease in the lungs as well. Please clinically correlate CT angio head INDICATION / CLINICAL INFORMATION: 60 years Female; r/o lvo stroke alert stat. TECHNIQUE: Thin cut axial images obtained through the head during IV bolus contrast administration. Sagittal, coronal, and 3 plane MIP reconstructions performed by the technologist. NASCET type criteria used evaluate stenoses. Automated exposure control utilized for radiation reduction purposes. COMPARISON: None available. FINDINGS: INTERNAL CAROTID ARTERIES: No significant narrowing appreciated. VERTEBROBASILAR SYSTEM: No significant narrowing appreciated. DISTAL BRANCHES: Distal branches of the anterior, middle, and posterior cerebral arteries are fairly symmetric in appearance and number. ANEURYSM: None identified. ADDITIONAL FINDINGS: Prominent soft tissue is seen in the roof the nasopharynx, presumably related to reactive adenoidal tissue. Please clinically correlate. IMPRESSION: No significant narrowing appreciated on this CTA of the head. - Medical Decision Making This patient presents as a code stroke with left-sided hemiplegia, left-sided numbness, and right-sided facial droop. The patient was seen by the telemedicine neurologist immediately upon arrival in through her ED visit. CT scan of the head without contrast was negative for any hemorrhage or large vessel occlusion. The patient was within the TPA window. Both myself, and the neurologist, had 2 separate but detailed discussions with the patient regarding risks versus benefits of TPA and the patient agreed with administration of TPA. After TPA was given the patient was sent for CT angiography studies of the head and neck that came back negative for any stenosis, occlusion, thrombosis, or any other acute processes. Patient's labs have been mostly unremarkable except for some hyperglycemia without signs of DKA. Patient's vital signs have been reassuring throughout her ED course. She will be admitted to the ICU for further evaluation of her CVA and post TPA care, and the patient was accepted f or admission by the hospitalist, Dr. Kaur. Critical Care Time: Yes Critical care time in (mins) excluding proc time.: 35 Critical care attestation.: If time is entered above; I have spent that time in minutes in the direct care of this critically ill patient, excluding procedure time. Critical care time was spent on this patient in doing her initial evaluation, multiple reevaluations, ordering and interpretation of labs and imaging, administration and evaluation of TPA, multiple conversations with the telemedicine neurologist, multiple conversations with the patient. Critical Care Time: 35 minutes. ED Disposition Clinical Impression: Hyperglycemia CVA (cerebral vascular accident) Qualifiers: CVA mechanism: unspecified Qualified Code(s): I63.9 - Cerebral infarction, unspecified Disposition: DC-09 OP ADMIT IP TO THIS HOSP Is pt being admited?: Yes Condition: Serious Time of Disposition: 14:35
[2020-12-13] MEDS ORDERED: IPRATROPIUM/ALBUTEROL SULFATE 3 ML AMPUL.NEB IH ONE (13:18)
[2020-12-13 13:24] LABS: Alanine Aminotransferase 32 units/L (7-56); Bilirubin,Direct < 0.2 mg/dL (0-0.2)
[2020-12-13] MEDS ORDERED: MORPHINE 4 MG/1 ML INJ IV ONE (13:24)
--- NOTE | 2020-12-13 13:43 | Cat Scan Report ---
CT angio neck INDICATION / CLINICAL INFORMATION: 60 years Female; r/o lvo stroke alert stat. TECHNIQUE: Thin cut axial images obtained through the head during IV bolus contrast administration. S agittal, coronal, and 3 plane MIP reconstructions performed by the technologist. NASCET type criteria used evaluate stenoses. All CT scans at this location are performed using CT dose reduction for ALAR A by means of automated exposure control. COMPARISON: None available. FINDINGS: ARCH: Normal aortic arch branching suggested. CAROTID ARTERIES: The visualized common and internal carotid arteries are widely patent. VERTEBRAL ARTERIES: Codominant vertebral system seen. No significant stenosis appreciated. ADDITIONAL FINDINGS: Thyroid gland is mildly prominent size with multiple nodules seen. Mild to moderate mucosal thickening seen in the ethmoids. Prominent soft tissue is seen in the roof the nasopharynx, presumably related to reactive adenoidal t issue. Please clinically correlate. Prominent nodes are seen in the mediastinum. There may be patchy airspace disease in the lungs as wel l. Please clinically correlate. IMPRESSION: No significant stenosis appreciated on this CTA of the neck. Signer Name: Thomas Chanel MD, III Signed: 12/13/2020 1:39 PM Workstation Name: [id number]
[2020-12-13 13:45] LABS: Bilirubin,Urine NEG (Negative); Blood,Urine NEG (Negative); Color,Urine Straw (Yellow); Mucus,Urine FEW /HPF; Protein,Urine <15 mg/dL mg/dL (Negative); Urobilinogen,Urine < 2.0 mg/dL (<2.0); WBC,Urine < 1.0 /HPF (0.0-6.0)
[2020-12-13 13:46] LABS: Amphetamine Screen,Urine Negative; Benzodiazepines Screen,Urine Negative; Cocaine Screen,Urine Negative; Methadone Screen,Urine Negative; Opiate Screen,Urine Negative
[2020-12-13 14:01] LABS: Cannabinoid Screen,Urine Positive
--- NOTE | 2020-12-13 14:25 | Cat Scan Report ---
CT angio head INDICATION / CLINICAL INFORMATION: 60 years Female; r/o lvo stroke alert stat. TECHNIQUE: Thin cut axial images obtained through the head during IV bolus contrast administration. S agittal, coronal, and 3 plane MIP reconstructions performed by the technologist. NASCET type criteria used evaluate stenoses. Automated exposure control utilized for radiation reduction purposes. COMPARISON: None available. FINDINGS: INTERNAL CAROTID ARTERIES: No significant narrowing appreciated. VERTEBROBASILAR SYSTEM: No significant narrowing appreciated. DISTAL BRANCHES: Distal branches of the anterior, middle, and posterior cerebral arteries are fairly symmetric in appearance and number. ANEURYSM: None identified. ADDITIONAL FINDINGS: Prominent soft tissue is seen in the roof the nasopharynx, presumably related to reactive adenoidal tissue. Please clinically correlate. IMPRESSION: No significant narrowing appreciated on this CTA of the head. Signer Name: Thomas Chanel MD, III Signed: 12/13/2020 2:20 PM Workstation Name: [id number] [id number]
--- NOTE | 2020-12-13 14:55 | History and Physical Report ---
History of Present Illness Date of examination: 12/13/20 Chief complaint: Left-sided weakness Slurred speech Right facial droop History of present illness: 60-year-old -Italian female with history of HIV, diabetes, hypertension, vertigo was brought to the emergency room from home with complaint of left-sided pain, followed by left-sided weakness. This began about 40 minutes prior to presentation. Patient complaint of some left-sided numbness and some difficulty with her speech. The patient was found to be unable to lift or move her left arm or her left leg. The patient uses a walker to ambulate at baseline. She did not take anything or receive anything for symptoms prior to presentation today. No recent travel or sick contacts at home. In the emergency room initial CT scan shows no acute intracranial abnormality. Patient is seen and evaluated by telemetry neurology and patient is status post TPA. Past History Past Medical History: COPD, diabetes, GERD, HIV/AIDS Medications and Allergies Allergies Allergy/AdvReac Type Severity Reaction Status Date / Time No Known Allergies Allergy Unverified 05/29/20 17:04 Home Medications Medication Instructions Recorded Confirmed Last Taken Type Oxycodone HCl [Oxycodone HCl 10mg 10 mg PO Q8H PRN #3 tablet 11/27/17 Unknown Rx tab] HYDROcodone/APAP 5-325 [[place] 1 each PO Q6HR PRN #12 tablet 05/29/20 Unknown Rx 5/325] Albuterol Sulfate [Proventil Hfa] 6.7 gm IH QID #1 hfa.aer.ad 10/05/20 Unknown Rx Nitrofurantoin Wright/M-Cryst 100 mg PO Q12HR 7 Days #14 capsule 10/05/20 Unknown Rx [Macrobid CAP] predniSONE [Deltasone] 40 mg PO QDAY 5 Days #10 tab 10/05/20 Unknown Rx Review of Systems Neurological: paralysis, numbness, tingling, change in speech, balance difficulties, gait dysfunction Exam - Constitutional Vitals: Temp Pulse Resp BP Pulse Ox 98.5 F 93 H 15 147/83 100 12/13/20 12:22 12/13/20 14:25 12/13/20 14:25 12/13/20 14:25 12/13/20 14:25 General appearance: Present: no acute distress, well-nourished - EENT Eyes: Present: PERRL ENT: hearing intact, clear oral mucosa - Neck Neck: Present: supple, normal ROM - Respiratory Respiratory effort: normal Respiratory: bilateral: CTA - Cardiovascular Heart Sounds: Present: S1 & S2. Absent: rub, click - Extremities Extremities: pulses symmetrical, No edema Peripheral Pulses: within normal limits - Abdominal General gastrointestinal: Present: soft, non-tender, non-distended, normal bowel sounds Female genitourinary: Present: normal - Integumentary Integumentary: Present: clear, warm, dry - Musculoskeletal Musculoskeletal: gait normal, strength equal bilaterally - Psychiatric Psychiatric: appropriate mood/affect, intact judgment & insight - Neurologic Neurologic: CNII-XII intact, no moves all extremities, no gait normal (Left- sided weakness and numbness. Slurred speech and right facial droop) HEART Score - HEART Score Troponin: Troponin T < 0.010 ng/mL (0.00-0.029) 12/13/20 11:57 Results - Labs CBC & Chem 7: 12/13/20 11:57 12/13/20 11:57 Labs: Laboratory Last Values WBC 6.4 K/mm3 (4.5-11.0) 12/13/20 11:57 RBC 4.18 M/mm3 (3.65-5.03) 12/13/20 11:57 Hgb 13.2 gm/dl (10.1-14.3) 12/13/20 11:57 Hct 39.1 % (30.3-42.9) 12/13/20 11:57 MCV 94 fl (79-97) 12/13/20 11:57 MCH 32 pg (28-32) 12/13/20 11:57 MCHC 34 % (30-34) 12/13/20 11:57 RDW 16.5 % (13.2-15.2) H 12/13/20 11:57 Plt Count 177 K/mm3 (140-440) 12/13/20 11:57 Lymph % (Auto) 31.4 % (13.4-35.0) 12/13/20 11:57 Wright % (Auto) 4.9 % (0.0-7.3) 12/13/20 11:57 Eos % (Auto) 3.4 % (0.0-4.3) 12/13/20 11:57 Baso % (Auto) 0.5 % (0.0-1.8) 12/13/20 11:57 Lymph # (Auto) 2.0 K/mm3 (1.2-5.4) 12/13/20 11:57 Wright # (Auto) 0.3 K/mm3 (0.0-0.8) 12/13/20 11:57 Eos # (Auto) 0.2 K/mm3 (0.0-0.4) 12/13/20 11:57 Baso # (Auto) 0.0 K/mm3 (0.0-0.1) 12/13/20 11:57 Seg Neutrophils % 59.8 % (40.0-70.0) 12/13/20 11:57 Seg Neutrophils # 3.9 K/mm3 (1.8-7.7) 12/13/20 11:57 PT 13.3 Sec. (12.2-14.9) 12/13/20 11:57 INR 1.03 (0.87-1.13) 12/13/20 11:57 APTT 30.6 Sec. (24.2-36.6) 12/13/20 11:57 Thrombin Time 16.9 Sec. (15.1-19.6) 12/13/20 11:57 Sodium 138 mmol/L (137-145) 12/13/20 11:57 Potassium 3.9 mmol/L (3.6-5.0) 12/13/20 11:57 Chloride 102.1 mmol/L (98-107) 12/13/20 11:57 Carbon Dioxide 22 mmol/L (22-30) 12/13/20 11:57 Anion Gap 18 mmol/L 12/13/20 11:57 BUN 6 mg/dL (7-17) L 12/13/20 11:57 Creatinine 0.7 mg/dL (0.6-1.2) 12/13/20 11:57 Estimated GFR > 60 ml/min 12/13/20 11:57 BUN/Creatinine Ratio 9 % 12/13/20 11:57 Glucose 320 mg/dL (65-100) H 12/13/20 11:57 Calcium 9.4 mg/dL (8.4-10.2) 12/13/20 11:57 Total Bilirubin < 0.20 mg/dL (0.1-1.2) 12/13/20 12:21 Direct Bilirubin < 0.2 mg/dL (0-0.2) 12/13/20 12:21 Indirect Bilirubin 0.0 mg/dL 12/13/20 12:21 AST 11 units/L (5-40) 12/13/20 12:21 ALT 32 units/L (7-56) 12/13/20 12:21 Alkaline Phosphatase 119 units/L (35-129) 12/13/20 12:21 Ammonia 41.0 umol/L (25-60) 12/13/20 12:21 Troponin T < 0.010 ng/mL (0.00-0.029) 12/13/20 11:57 Total Protein 7.2 g/dL (6.3-8.2) 12/13/20 12:21 Albumin 4.0 g/dL (3.9-5) 12/13/20 12:21 Albumin/Globulin Ratio 1.3 % 12/13/20 12:21 TSH 0.495 mlU/mL (0.270-4.200) 12/13/20 12:21 Urine Color Straw (Yellow) 12/13/20 13:09 Urine Turbidity Clear (Clear) 12/13/20 13:09 Urine pH 6.0 (5.0-7.0) 12/13/20 13:09 Ur Specific [place] 1.022 (1.003-1.030) 12/13/20 13:09 Urine Protein <15 mg/dl mg/dL (Negative) 12/13/20 13:09 Urine Glucose (UA) >=500 mg/dL (Negative) 12/13/20 13:09 Urine Ketones Neg mg/dL (Negative) 12/13/20 13:09 Urine Blood Neg (Negative) 12/13/20 13:09 Urine Nitrite Neg (Negative) 12/13/20 13:09 Urine Bilirubin Neg (Negative) 12/13/20 13:09 Urine Urobilinogen < 2.0 mg/dL (<2.0) 12/13/20 13:09 Ur Leukocyte Esterase Neg (Negative) 12/13/20 13:09 Urine WBC (Auto) < 1.0 /HPF (0.0-6.0) 12/13/20 13:09 Urine RBC (Auto) 1.0 /HPF (0.0-6.0) 12/13/20 13:09 U Epithel Cells (Auto) < 1.0 /HPF (0-13.0) 12/13/20 13:09 Urine Mucus Few /HPF 12/13/20 13:09 Urine Opiates Screen Negative 12/13/20 13:09 Urine Methadone Screen Negative 12/13/20 13:09 Ur Barbiturates Screen Negative 12/13/20 13:09 Ur Phencyclidine Scrn Negative 12/13/20 13:09 Ur Amphetamines Screen Negative 12/13/20 13:09 U Benzodiazepines Scrn Negative 12/13/20 13:09 Urine Cocaine Screen Negative 12/13/20 13:09 U Marijuana (THC) Screen Positive 12/13/20 13:09 Drugs of Abuse Note Disclamer 12/13/20 13:09 Plasma/Serum Alcohol < 0.01 % (0-0.07) 12/13/20 12:21 - Imaging and Cardiology CT Scan - head: image reviewed Assessment and Plan - Patient Problems (1) CVA (cerebral vascular accident) Current Visit: Yes Status: Acute Plan to address problem: Admit the patient to the ICU. Put the patient on CVA pathway. Patient is seen and evaluated by telemetry neurology. Patient is status post TPA. Lipitor 80 mg p.o. daily. We will hold aspirin for first 24 hours. Will consult PT OT and speech evaluation. We also consult neurology. We order MRI of the brain MRA of the brain and neck with and without contrast. We also ordered echocardiogram and carotid Doppler. SCD for DVT prophylaxis and Protonix 40 mg p.o. daily for GI prophylaxis. Patient is a full code (2) Diabetes 1.5, managed as type 2 Current Visit: Yes Status: Acute Plan to address problem: We will keep the patient nothing by mouth until seen by speech evaluation. Patient is on normal saline at the rate of 100 cc/h. We put the patient in Humalog sliding scale every 6 hours. Recheck CBC BMP in the morning (3) Hypertension Current Visit: Yes Status: Acute Plan to address problem: We will monitor the blood pressure closely. Patient is on hydralazine 10 mg IV every 6 hours as needed. (4) GERD (gastroesophageal reflux disease) Current Visit: Yes Status: Acute Plan to address problem: Patient is on Protonix 40 mg p.o. daily. (5) COPD (chronic obstructive pulmonary disease) Current Visit: Yes Status: Acute Plan to address problem: Patient is on oxygen by nasal cannula 3 L/min. DuoNeb by nebulizer every 4 hours as needed (6) DVT prophylaxis Current Visit: Yes Status: Acute Plan to address problem: Patient is status post TPA. We will put the patient on SCD for DVT prophylaxis.
[2020-12-13] MEDS ORDERED: DEXTROSE 50% IN WATER (25GM) 50 ML SYRINGE IV PRN (15:00)
[2020-12-13] MEDS ORDERED: ACETAMINOPHEN 325 MG TAB PO PRN (15:12)
[2020-12-13] MEDS: SODIUM CHLORIDE 0.9% 1000 ML 1,000 ML IV SCH (15:19)
[2020-12-13] MEDS: MORPHINE 4 MG/1 ML INJ IV PRN ×2 (16:22→20:07)
--- NOTE | 2020-12-13 16:26 | Cat Scan Report ---
CT head/brain wo con INDICATION: headache. TECHNIQUE: Routine CT head without contrast. All CT scans at this location are performed using CT dos e reduction for ALARA by means of automated exposure control. COMPARISON: 12/13/2020 CTA head FINDINGS: BRAIN / INTRACRANIAL CONTENTS: No acute hemorrhage, mass effect, midline shift, or hydrocephalus. No appreciable acute large territorial or lacunar infarct. No chronic infarct or focal atrophy. Normal b rain volume and ventricular/sulcal size for age. No extra-axial blood or fluid collections. Partially empty sella. ORBITS: No significant abnormality of visualized orbits. SINUSES / MASTOIDS: No significant abnormality of visualized sinuses and mastoid air cells. ADDITIONAL FINDINGS: Anterior subluxation of the mandibular condyles, symmetric. IMPRESSION: 1. No acute intracranial abnormality. 2. Partially empty sella morphology. This can be seen in setting of a opacification intracranial hype rtension in a patient with chronic headaches. 3. Anterior subluxation of the mandibular condyles, symmetric. Signer Name: Osmar Najera MD Signed: 12/13/2020 4:22 PM Workstation Name: [id number]
[2020-12-13] MEDS: ALBUTEROL 2.5 MG/3 ML NEBU IH SCH ×2 (17:17→21:30)
[2020-12-13] MEDS ORDERED: ALBUTEROL 8.5 GM MDI INHALATION IH SCH (18:00)
[2020-12-13] MEDS: INSULIN LISPRO 100 UNIT/ML SUB-Q SCH (18:25)
[2020-12-13] MEDS ORDERED: NITROFURANTOIN MONOHYD/M-CRYST 100 MG CAP PO SCH (22:00)
[2020-12-14] MEDS: INSULIN LISPRO 100 UNIT/ML SUB-Q SCH ×5 (00:34→23:20)
[2020-12-14] MEDS: MORPHINE 4 MG/1 ML INJ IV PRN ×4 (00:37→12:00)
[2020-12-14] MEDS ORDERED: PETROLATUM,WHITE 30 GM OINT TP PRN (02:22)
[2020-12-14] MEDS: SODIUM CHLORIDE 0.9% 1000 ML 1,000 ML IV SCH (03:34)
[2020-12-14] MEDS ORDERED: diphenhydrAMINE 50 MG/ML VIAL IV PRN (04:29)
[2020-12-14 06:50] LABS: Chol/HDL Ratio 5.7 %
[2020-12-14] MEDS: ALBUTEROL 2.5 MG/3 ML NEBU IH SCH ×3 (07:13→21:07)
[2020-12-14] MEDS ORDERED: predniSONE 20 MG TAB PO SCH (10:00)
--- NOTE | 2020-12-14 12:19 | Progress Note ---
Assessment and Plan Assessment and plan: 60-year-old -Congolese female with history of HIV, diabetes, hypertension, vertigo was brought to the emergency room from home with complaint of left-sided pain, followed by left-sided weakness. This began about 40 minutes prior to presentation. Patient complaint of some left-sided numbness and some difficulty with her speech. The patient was found to be unable to lift or move her left arm or her left leg. The patient uses a walker to ambulate at baseline. She did not take anything or receive anything for symptoms prior to presentation today. No recent travel or sick contacts at home. In the emergency room initial CT scan shows no acute intracranial abnormality. Patient is seen and evaluated by telemetry neurology and patient is status post TPA. #CVA Status post TPA Post TP CT head ordered Start aspirin 81 mg daily after 24 hours post SURVEY STATISTICIAN Continue statins Neurology evaluation MRI brain, MRA head and neck ordered Echocardiogram with bubble study pending Speech evaluation PT/OT Advised patient to stop tobacco abuse #DM Continue insulin #Hypertension Permissive hypertension for now # HIV Continue home medications #GERD Continue PPI #COPD: Continue oxygen supplementation Albuterol as needed #Tobacco abuse Spent more than 10 minutes counseling patient on need to stop tobacco abuse #DVT prophylaxis-SCDs for now History Interval history: 12/04. Patient seen and examined at bedside in ICU Speech is slightly slowed but is much better Left-sided weakness has resolved status post TPA Awaiting complete neurologic studies-MRI, MRA head and neck, echocardiogram Hospitalist Physical - Physical exam Narrative exam: VITAL SIGNS: Reviewed. GENERAL: Awake HEAD: No signs of head trauma. EYES: Pupils are equal. Extraocular motions intact. MOUTH: Oropharynx is normal. NECK: No adenopathy, no JVD. CHEST: Chest with diminished breath sounds bilaterally. No wheezes, rales, or rhonchi. CARDIAC: normal S1 and S2, without murmurs, gallops, or rubs. ABDOMEN: Soft, non tender and non distended. No rebound or guarding, and no masses palpated. Bowel Sounds normal. MUSCULOSKELETAL: No edema NEUROLOGIC EXAM: Alert and oriented x3. Speech slightly slurred. Left-sided weakness resolved SKIN: No obvious lesions - Constitutional Vitals: Temp Pulse Resp BP Pulse Ox 98.6 F 102 H 24 177/97 95 12/14/20 03:13 12/14/20 10:51 12/14/20 10:51 12/13/20 18:41 12/14/20 10:51 HEART Score - HEART Score Troponin: Troponin T < 0.010 ng/mL (0.00-0.029) 12/13/20 11:57 Results - Labs CBC & Chem 7: 12/13/20 11:57 12/13/20 11:57 Labs: Laboratory Last Values WBC 6.4 K/mm3 (4.5-11.0) 12/13/20 11:57 RBC 4.18 M/mm3 (3.65-5.03) 12/13/20 11:57 Hgb 13.2 gm/dl (10.1-14.3) 12/13/20 11:57 Hct 39.1 % (30.3-42.9) 12/13/20 11:57 MCV 94 fl (79-97) 12/13/20 11:57 MCH 32 pg (28-32) 12/13/20 11:57 MCHC 34 % (30-34) 12/13/20 11:57 RDW 16.5 % (13.2-15.2) H 12/13/20 11:57 Plt Count 177 K/mm3 (140-440) 12/13/20 11:57 Lymph % (Auto) 31.4 % (13.4-35.0) 12/13/20 11:57 [place] % (Auto) 4.9 % (0.0-7.3) 12/13/20 11:57 Eos % (Auto) 3.4 % (0.0-4.3) 12/13/20 11:57 Baso % (Auto) 0.5 % (0.0-1.8) 12/13/20 11:57 Lymph # (Auto) 2.0 K/mm3 (1.2-5.4) 12/13/20 11:57 [place] # (Auto) 0.3 K/mm3 (0.0-0.8) 12/13/20 11:57 Eos # (Auto) 0.2 K/mm3 (0.0-0.4) 12/13/20 11:57 Baso # (Auto) 0.0 K/mm3 (0.0-0.1) 12/13/20 11:57 Seg Neutrophils % 59.8 % (40.0-70.0) 12/13/20 11:57 Seg Neutrophils # 3.9 K/mm3 (1.8-7.7) 12/13/20 11:57 PT 13.3 Sec. (12.2-14.9) 12/13/20 11:57 INR 1.03 (0.87-1.13) 12/13/20 11:57 APTT 30.6 Sec. (24.2-36.6) 12/13/20 11:57 Thrombin Time 16.9 Sec. (15.1-19.6) 12/13/20 11:57 Sodium 138 mmol/L (137-145) 12/13/20 11:57 Potassium 3.9 mmol/L (3.6-5.0) 12/13/20 11:57 Chloride 102.1 mmol/L (98-107) 12/13/20 11:57 Carbon Dioxide 22 mmol/L (22-30) 12/13/20 11:57 Anion Gap 18 mmol/L 12/13/20 11:57 BUN 6 mg/dL (7-17) L 12/13/20 11:57 Creatinine 0.7 mg/dL (0.6-1.2) 12/13/20 11:57 Estimated GFR > 60 ml/min 12/13/20 11:57 BUN/Creatinine Ratio 9 % 12/13/20 11:57 Glucose 320 mg/dL (65-100) H 12/13/20 11:57 POC Glucose 179 mg/dL (70-105) H 12/14/20 11:49 Calcium 9.4 mg/dL (8.4-10.2) 12/13/20 11:57 Total Bilirubin < 0.20 mg/dL (0.1-1.2) 12/13/20 12:21 Direct Bilirubin < 0.2 mg/dL (0-0.2) 12/13/20 12:21 Indirect Bilirubin 0.0 mg/dL 12/13/20 12:21 AST 11 units/L (5-40) 12/13/20 12:21 ALT 32 units/L (7-56) 12/13/20 12:21 Alkaline Phosphatase 119 units/L (35-129) 12/13/20 12:21 Ammonia 41.0 umol/L (25-60) 12/13/20 12:21 Troponin T < 0.010 ng/mL (0.00-0.029) 12/13/20 11:57 Total Protein 7.2 g/dL (6.3-8.2) 12/13/20 12:21 Albumin 4.0 g/dL (3.9-5) 12/13/20 12:21 Albumin/Globulin Ratio 1.3 % 12/13/20 12:21 Triglycerides 274 mg/dL (2-149) H 12/14/20 05:18 Cholesterol 268 mg/dL (50-199) H 12/14/20 05:18 LDL Cholesterol Direct 197 mg/dL (50-130) H 12/14/20 05:18 HDL Cholesterol 47 mg/dL (40-59) 12/14/20 05:18 Cholesterol/HDL Ratio 5.70 % 12/14/20 05:18 TSH 0.495 mlU/mL (0.270-4.200) 12/13/20 12:21 Urine Color Straw (Yellow) 12/13/20 13:09 Urine Turbidity Clear (Clear) 12/13/20 13:09 Urine pH 6.0 (5.0-7.0) 12/13/20 13:09 Ur Specific [place] 1.022 (1.003-1.030) 12/13/20 13:09 Urine Protein <15 mg/dl mg/dL (Negative) 12/13/20 13:09 Urine Glucose (UA) >=500 mg/dL (Negative) 12/13/20 13:09 Urine Ketones Neg mg/dL (Negative) 12/13/20 13:09 Urine Blood Neg (Negative) 12/13/20 13:09 Urine Nitrite Neg (Negative) 12/13/20 13:09 Urine Bilirubin Neg (Negative) 12/13/20 13:09 Urine Urobilinogen < 2.0 mg/dL (<2.0) 12/13/20 13:09 Ur Leukocyte Esterase Neg (Negative) 12/13/20 13:09 Urine WBC (Auto) < 1.0 /HPF (0.0-6.0) 12/13/20 13:09 Urine RBC (Auto) 1.0 /HPF (0.0-6.0) 12/13/20 13:09 U Epithel Cells (Auto) < 1.0 /HPF (0-13.0) 12/13/20 13:09 Urine Mucus Few /HPF 12/13/20 13:09 Urine Opiates Screen Negative 12/13/20 13:09 Urine Methadone Screen Negative 12/13/20 13:09 Ur Barbiturates Screen Negative 12/13/20 13:09 Ur Phencyclidine Scrn Negative 12/13/20 13:09 Ur Amphetamines Screen Negative 12/13/20 13:09 U Benzodiazepines Scrn Negative 12/13/20 13:09 Urine Cocaine Screen Negative 12/13/20 13:09 U Marijuana (THC) Screen Positive 12/13/20 13:09 Drugs of Abuse Note Disclamer 12/13/20 13:09 Plasma/Serum Alcohol < 0.01 % (0-0.07) 12/13/20 12:21 Active Medications - Current Medications Current Medications: Generic Name Dose Route Start Last Admin Trade Name Freq PRN Reason Stop Dose Admin Acetaminophen 650 mg 12/13/20 15:12 12/13/20 15:17 Acetaminophen 325 Mg Tab PO 650 mg Q6H PRN Administration Pain, Mild (1-3) Albuterol 2.5 mg 12/14/20 14:00 Albuterol 2.5 Mg/3 Ml Nebu IH TIDRT [facility] Arformoterol Tartrate 15 mcg 12/14/20 20:00 Arformoterol 15 Mcg/2 Ml Nebu IH Q12HRT [facility] Aspirin 325 mg 12/14/20 15:00 Aspirin 325 Mg Tab PO Q24HR [facility] Atorvastatin Calcium 80 mg 12/13/20 22:00 12/14/20 00:38 Atorvastatin 40 Mg Tab PO Not Given QHS [facility] Budesonide 0.5 mg 12/14/20 20:00 Budesonide 0.5 Mg/2 Ml Nebu IH Q12HRT [facility] Dextrose 50 ml 12/13/20 15:00 Dextrose 50% In Water (25gm) 50 Ml Syringe IV Q30MIN PRN Hypoglycemia Protocol Diphenhydramine HCl 25 mg 12/14/20 04:29 12/14/20 04:40 Diphenhydramine 50 Mg/Ml Vial IV 25 mg Q6H PRN Administration Itching Hydrophilic Ointment 1 applic 12/14/20 02:22 Petrolatum,White 30 Gm Oint TP PRN PRN Skin Irritation Sodium Chloride 1,000 mls @ 100 mls/hr 12/13/20 15:00 12/14/20 03:34 Nacl 0.9% 1000 Ml IV 100 mls/hr DIRECT [facility]RIS Administration Insulin Human Lispro 0 unit 12/13/20 18:00 12/14/20 07:08 Insulin Lispro 100 Unit/Ml SUB-Q 2 unit Q6HR [facility] Administration Protocol Miscellaneous Medication 1 tab 12/13/20 21:30 12/14/20 09:58 Darunavir/Cob/Emtri/Tenof Alaf [Symtuza [phone] Mg Tab] PO Not Given DAILY [facility]RIS Morphine Sulfate 2 mg 12/13/20 15:31 12/14/20 12:00 Morphine 4 Mg/1 Ml Inj IV 2 mg Q4H PRN Administration Pain Prednisone 40 mg 12/15/20 10:00 Prednisone 20 Mg Tab PO 12/18/20 10:01 QDAY [facility]SI Sodium Chloride 10 ml 12/13/20 15:00 Sodium Chloride 0.9% 10 Ml Flush Syringe IV PRN PRN LINE FLUSH Nutrition/Malnutrition Assess - Dietary Evaluation Nutrition/Malnutrition Findings: Nutrition Notes Start: 12/14/20 09:22 Freq: Status: Active Protocol: Document 12/14/20 09:22 LP (Rec: 12/14/20 09:24 LP [id number]) Nutrition Notes Need for Assessment generated from: MD Order Initial or Follow up Brief Note Current Diagnosis COPD,Diabetes,Hypertension, Stroke Other Pertinent Diagnosis HIV Current Diet NPO Labs/Tests TG 274 Chol 268 Pertinent Medications NS at 100ml/hr Weight Status Obese Subjective/Other Information Consult for diet education. Pt not appropriate for diet education at this time. Nutrition Intervention Follow-Up By: 12/15/20 Additional Comments Follow for diet education
--- NOTE | 2020-12-14 14:05 | Cat Scan Report ---
CT head/brain wo con INDICATION / CLINICAL INFORMATION: 60 years Female; Post TPA. TECHNIQUE: Routine CT head without contrast. All CT scans at this location are performed using CT dos e reduction for ALARA by means of automated exposure control. COMPARISON: 12/13/2020 FINDINGS: BRAIN / INTRACRANIAL CONTENTS: No acute hemorrhage, mass effect, midline shift, hydrocephalus, or acu te, large territorial infarct. No signs of significant atrophy or chronic infarct. No significant whi te matter abnormality seen. CRANIOCERVICAL JUNCTION: No significant abnormality. ORBITS: No significant abnormality of visualized orbits. SINUSES / MASTOIDS: Visualized paranasal sinuses and mastoid air cells are essentially clear. ADDITIONAL FINDINGS: None. IMPRESSION: 1. No focal mass, hemorrhage, hydrocephalus, or acute, large territorial infarct. Signer Name: Thomas Chanel MD, III Signed: 12/14/2020 2:01 PM Workstation Name: [id number]
[2020-12-14] MEDS: ASPIRIN 325 MG TAB PO SCH (15:15)
[2020-12-14] MEDS: oxyCODONE /ACETAMINOPHEN 5-325MG TAB PO PRN (17:12)
--- NOTE | 2020-12-14 18:59 | Magnetic Resonance Report ---
MR brain wo con INDICATION / CLINICAL INFORMATION: 60 years Female; stroke. TECHNIQUE: Multiplanar, multisequence MR images of the brain were obtained. Motion artifact. COMPARISON: CT-12/14/2020 FINDINGS: BRAIN / INTRACRANIAL CONTENTS: No acute hemorrhage, mass effect, midline shift, hydrocephalus, or acu te, large territorial infarct. No chronic infarct or atrophy. Minimal, nonspecific white matter disea se identified. CRANIOCERVICAL JUNCTION: No significant abnormality. VASCULAR FLOW-VOIDS: No significant abnormality. ORBITS: No significant abnormality of visualized orbits. SINUSES / MASTOIDS: No significant abnormality in the visualized paranasal sinuses or mastoid air thierry ls. ADDITIONAL FINDINGS: None. IMPRESSION: 1. No focal mass, hemorrhage, hydrocephalus, or acute ischemia. Signer Name: Thomas Chanel MD, III Signed: 12/14/2020 6:55 PM Workstation Name: [id number]
[2020-12-14] MEDS: BUDESONIDE 0.5 MG/2 ML NEBU IH SCH (21:05)
[2020-12-14] MEDS: ARFORMOTEROL 15 MCG/2 ML NEBU IH SCH (21:06)
[2020-12-15] MEDS: ARFORMOTEROL 15 MCG/2 ML NEBU IH SCH ×2 (08:50→20:30)
[2020-12-15] MEDS: ALBUTEROL 2.5 MG/3 ML NEBU IH SCH ×3 (08:50→20:31)
[2020-12-15] MEDS: BUDESONIDE 0.5 MG/2 ML NEBU IH SCH ×2 (08:50→20:30)
--- NOTE | 2020-12-15 10:11 | Progress Note ---
Assessment and Plan Assessment and plan: 60-year-old -[place] female with history of HIV, diabetes, hypertension, vertigo was brought to the emergency room from home with complaint of left-sided pain, followed by left-sided weakness. This began about 40 minutes prior to presentation. Patient complaint of some left-sided numbness and some difficulty with her speech. The patient was found to be unable to lift or move her left arm or her left leg. The patient uses a walker to ambulate at baseline. She did not take anything or receive anything for symptoms prior to presentation today. No recent travel or sick contacts at home. In the emergency room initial CT scan shows no acute intracranial abnormality. Patient is seen and evaluated by telemetry neurology and patient is status post TPA. #CVA Status post TPA Aspirin 325 mg daily Continue statins MRI brain- no cva identified Echocardiogram with bubble study pending Neurology evaluation pending PT/OT pending. Patient uses a walker to ambulate Advised patient to stop tobacco abuse #DM Continue insulin #Hypertension Permissive hypertension for now # HIV Continue home medications #GERD Continue PPI #COPD: Continue oxygen supplementation Albuterol as needed #Tobacco abuse Spent more than 10 minutes counseling patient on need to stop tobacco abuse #DVT prophylaxis-SCDs for now History Interval history: 12/14. Patient seen and examined at bedside in ICU Speech is slightly slowed but is much better Left-sided weakness has resolved status post TPA Awaiting complete neurologic studies-MRI brain, echocardiogram Neurology evaluation pending 12/15. Speech is still slurred. On aspirin. Awaiting echo and neurology evaluation. PT/OT ordered Hospitalist Physical - Physical exam Narrative exam: VITAL SIGNS: Reviewed. GENERAL: Awake HEAD: No signs of head trauma. EYES: Pupils are equal. Extraocular motions intact. MOUTH: Oropharynx is normal. NECK: No adenopathy, no JVD. CHEST: Chest with diminished breath sounds bilaterally. No wheezes, rales, or rhonchi. CARDIAC: normal S1 and S2, without murmurs, gallops, or rubs. ABDOMEN: Soft, non tender and non distended. No rebound or guarding, and no masses palpated. Bowel Sounds normal. MUSCULOSKELETAL: No edema NEUROLOGIC EXAM: Alert and oriented x3. Speech slightly slurred. Left-sided weakness resolved SKIN: No obvious lesions - Constitutional Vitals: Temp Pulse Resp BP Pulse Ox 98.1 F 89 18 115/71 100 12/15/20 08:29 12/15/20 08:29 12/15/20 08:29 12/15/20 08:29 12/15/20 08:29 HEART Score - HEART Score Troponin: Troponin T < 0.010 ng/mL (0.00-0.029) 12/13/20 11:57 Results - Labs CBC & Chem 7: 12/13/20 11:57 12/13/20 11:57 Labs: Laboratory Last Values WBC 6.4 K/mm3 (4.5-11.0) 12/13/20 11:57 RBC 4.18 M/mm3 (3.65-5.03) 12/13/20 11:57 Hgb 13.2 gm/dl (10.1-14.3) 12/13/20 11:57 Hct 39.1 % (30.3-42.9) 12/13/20 11:57 MCV 94 fl (79-97) 12/13/20 11:57 MCH 32 pg (28-32) 12/13/20 11:57 MCHC 34 % (30-34) 12/13/20 11:57 RDW 16.5 % (13.2-15.2) H 12/13/20 11:57 Plt Count 177 K/mm3 (140-440) 12/13/20 11:57 Lymph % (Auto) 31.4 % (13.4-35.0) 12/13/20 11:57 [place] % (Auto) 4.9 % (0.0-7.3) 12/13/20 11:57 Eos % (Auto) 3.4 % (0.0-4.3) 12/13/20 11:57 Baso % (Auto) 0.5 % (0.0-1.8) 12/13/20 11:57 Lymph # (Auto) 2.0 K/mm3 (1.2-5.4) 12/13/20 11:57 [place] # (Auto) 0.3 K/mm3 (0.0-0.8) 12/13/20 11:57 Eos # (Auto) 0.2 K/mm3 (0.0-0.4) 12/13/20 11:57 Baso # (Auto) 0.0 K/mm3 (0.0-0.1) 12/13/20 11:57 Seg Neutrophils % 59.8 % (40.0-70.0) 12/13/20 11:57 Seg Neutrophils # 3.9 K/mm3 (1.8-7.7) 12/13/20 11:57 PT 13.3 Sec. (12.2-14.9) 12/13/20 11:57 INR 1.03 (0.87-1.13) 12/13/20 11:57 APTT 30.6 Sec. (24.2-36.6) 12/13/20 11:57 Thrombin Time 16.9 Sec. (15.1-19.6) 12/13/20 11:57 Sodium 138 mmol/L (137-145) 12/13/20 11:57 Potassium 3.9 mmol/L (3.6-5.0) 12/13/20 11:57 Chloride 102.1 mmol/L (98-107) 12/13/20 11:57 Carbon Dioxide 22 mmol/L (22-30) 12/13/20 11:57 Anion Gap 18 mmol/L 12/13/20 11:57 BUN 6 mg/dL (7-17) L 12/13/20 11:57 Creatinine 0.7 mg/dL (0.6-1.2) 12/13/20 11:57 Estimated GFR > 60 ml/min 12/13/20 11:57 BUN/Creatinine Ratio 9 % 12/13/20 11:57 Glucose 320 mg/dL (65-100) H 12/13/20 11:57 POC Glucose 250 mg/dL (70-105) H 12/14/20 17:02 Calcium 9.4 mg/dL (8.4-10.2) 12/13/20 11:57 Total Bilirubin < 0.20 mg/dL (0.1-1.2) 12/13/20 12:21 Direct Bilirubin < 0.2 mg/dL (0-0.2) 12/13/20 12:21 Indirect Bilirubin 0.0 mg/dL 12/13/20 12:21 AST 11 units/L (5-40) 12/13/20 12:21 ALT 32 units/L (7-56) 12/13/20 12:21 Alkaline Phosphatase 119 units/L (35-129) 12/13/20 12:21 Ammonia 41.0 umol/L (25-60) 12/13/20 12:21 Troponin T < 0.010 ng/mL (0.00-0.029) 12/13/20 11:57 Total Protein 7.2 g/dL (6.3-8.2) 12/13/20 12:21 Albumin 4.0 g/dL (3.9-5) 12/13/20 12:21 Albumin/Globulin Ratio 1.3 % 12/13/20 12:21 Triglycerides 274 mg/dL (2-149) H 12/14/20 05:18 Cholesterol 268 mg/dL (50-199) H 12/14/20 05:18 LDL Cholesterol Direct 197 mg/dL (50-130) H 12/14/20 05:18 HDL Cholesterol 47 mg/dL (40-59) 12/14/20 05:18 Cholesterol/HDL Ratio 5.70 % 12/14/20 05:18 TSH 0.495 mlU/mL (0.270-4.200) 12/13/20 12:21 Urine Color Straw (Yellow) 12/13/20 13:09 Urine Turbidity Clear (Clear) 12/13/20 13:09 Urine pH 6.0 (5.0-7.0) 12/13/20 13:09 Ur Specific [place] 1.022 (1.003-1.030) 12/13/20 13:09 Urine Protein <15 mg/dl mg/dL (Negative) 12/13/20 13:09 Urine Glucose (UA) >=500 mg/dL (Negative) 12/13/20 13:09 Urine Ketones Neg mg/dL (Negative) 12/13/20 13:09 Urine Blood Neg (Negative) 12/13/20 13:09 Urine Nitrite Neg (Negative) 12/13/20 13:09 Urine Bilirubin Neg (Negative) 12/13/20 13:09 Urine Urobilinogen < 2.0 mg/dL (<2.0) 12/13/20 13:09 Ur Leukocyte Esterase Neg (Negative) 12/13/20 13:09 Urine WBC (Auto) < 1.0 /HPF (0.0-6.0) 12/13/20 13:09 Urine RBC (Auto) 1.0 /HPF (0.0-6.0) 12/13/20 13:09 U Epithel Cells (Auto) < 1.0 /HPF (0-13.0) 12/13/20 13:09 Urine Mucus Few /HPF 12/13/20 13:09 Urine Opiates Screen Negative 12/13/20 13:09 Urine Methadone Screen Negative 12/13/20 13:09 Ur Barbiturates Screen Negative 12/13/20 13:09 Ur Phencyclidine Scrn Negative 12/13/20 13:09 Ur Amphetamines Screen Negative 12/13/20 13:09 U Benzodiazepines Scrn Negative 12/13/20 13:09 Urine Cocaine Screen Negative 12/13/20 13:09 U Marijuana (THC) Screen Positive 12/13/20 13:09 Drugs of Abuse Note Disclamer 12/13/20 13:09 Plasma/Serum Alcohol < 0.01 % (0-0.07) 12/13/20 12:21 Active Medications - Current Medications Current Medications: Generic Name Dose Route Start Last Admin Trade Name Freq PRN Reason Stop Dose Admin Acetaminophen 650 mg 12/13/20 15:12 12/13/20 15:17 Acetaminophen 325 Mg Tab PO 650 mg Q6H PRN Administration Pain, Mild (1-3) Albuterol 2.5 mg 12/14/20 14:00 12/15/20 08:50 Albuterol 2.5 Mg/3 Ml Nebu IH 2.5 mg TIDRT CHRIS Administration Arformoterol Tartrate 15 mcg 12/14/20 20:00 12/15/20 08:50 Arformoterol 15 Mcg/2 Ml Nebu IH 15 mcg Q12HRT CHRIS Administration Aspirin 325 mg 12/14/20 15:00 12/14/20 15:15 Aspirin 325 Mg Tab PO Not Given Q24HR CHRIS Atorvastatin Calcium 80 mg 12/13/20 22:00 12/14/20 00:38 Atorvastatin 40 Mg Tab PO Not Given QHS CHRIS Budesonide 0.5 mg 12/14/20 20:00 12/15/20 08:50 Budesonide 0.5 Mg/2 Ml Nebu IH 0.5 mg Q12HRT CHRIS Administration Dextrose 50 ml 12/13/20 15:00 Dextrose 50% In Water (25gm) 50 Ml Syringe IV Q30MIN PRN Hypoglycemia Protocol Diphenhydramine HCl 25 mg 12/14/20 04:29 12/14/20 04:40 Diphenhydramine 50 Mg/Ml Vial IV 25 mg Q6H PRN Administration Itching Hydrophilic Ointment 1 applic 12/14/20 02:22 Petrolatum,White 30 Gm Oint TP PRN PRN Skin Irritation Insulin Human Lispro 0 unit 12/13/20 18:00 12/14/20 23:20 Insulin Lispro 100 Unit/Ml SUB-Q 2 unit Q6HR CHRIS Administration Protocol Miscellaneous Medication 1 tab 12/13/20 21:30 12/14/20 09:58 Darunavir/Cob/Emtri/Tenof Alaf [Symtuza [id number] Mg Tab] PO Not Given DAILY CHIRS Morphine Sulfate 2 mg 12/13/20 15:31 12/14/20 12:00 Morphine 4 Mg/1 Ml Inj IV 2 mg Q4H PRN Administration Pain Oxycodone/Acetaminophen 2 tab 12/14/20 15:00 12/14/20 17:12 Oxycodone /Acetaminophen 5-325mg Tab PO 2 tab Q8H PRN Administration Pain, Moderate (4-6) Prednisone 40 mg 12/15/20 10:00 Prednisone 20 Mg Tab PO 12/18/20 10:01 QDAY CHRIS Sodium Chloride 10 ml 12/13/20 15:00 Sodium Chloride 0.9% 10 Ml Flush Syringe IV PRN PRN LINE FLUSH Nutrition/Malnutrition Assess - Dietary Evaluation Nutrition/Malnutrition Findings: Nutrition Notes Start: 12/14/20 09:22 Freq: Status: Active Protocol: Document 12/14/20 09:22 LP (Rec: 12/14/20 09:24 LP [id number]) Nutrition Notes Need for Assessment generated from: MD Order Initial or Follow up Brief Note Current Diagnosis COPD,Diabetes,Hypertension, Stroke Other Pertinent Diagnosis HIV Current Diet NPO Labs/Tests TG 274 Chol 268 Pertinent Medications NS at 100ml/hr Weight Status Obese Subjective/Other Information Consult for diet education. Pt not appropriate for diet education at this time. Nutrition Intervention Follow-Up By: 12/15/20 Additional Comments Follow for diet education
[2020-12-15] MEDS: ASPIRIN 325 MG TAB PO SCH (10:48)
[2020-12-15] MEDS: predniSONE 20 MG TAB PO SCH (10:48)
[2020-12-15] MEDS: oxyCODONE /ACETAMINOPHEN 5-325MG TAB PO PRN ×2 (11:45→22:07)
[2020-12-15] MEDS: INSULIN LISPRO 100 UNIT/ML SUB-Q SCH ×3 (14:00→22:09)
--- NOTE | 2020-12-15 15:28 | Consultation ---
History of Present Illness Consult date: 12/15/20 Reason for Consult: cva s/p tpa Chief complaint: Stroke History of present illness: 60 yo female with htn, dm, hld, copd, hiv who presents with acute onset of left- sided weakness w/ dysarthria s/p IV-tPA w/ cta head/neck that is unremarkable. MR Brain is unremarkable for an acute process. Patient still notes left-sided weakness w/ sensory loss but much improved than when she initially came in. Past History Past Medical History: COPD, diabetes, GERD, HIV/AIDS Medications and Allergies Allergies Allergy/AdvReac Type Severity Reaction Status Date / Time No Known Allergies Allergy Unverified 05/29/20 17:04 Home Medications Medication Instructions Recorded Confirmed Last Taken Type Oxycodone HCl [Oxycodone HCl 10mg 10 mg PO Q8H PRN #3 tablet 11/27/17 12/13/20 Unknown Rx tab] ALPRAZolam [Xanax TAB] 0.5 mg PO BID PRN 12/13/20 12/13/20 Unknown History Amitriptyline [Elavil] 100 mg PO QHS 12/13/20 12/13/20 Unknown History Bimatoprost [Lumigan] 1 drop OU QHS 12/13/20 12/13/20 Unknown History Bimatoprost [Lumigan] 2.5 ml OP BID 12/13/20 12/14/20 Unknown History Darunavir/Cob/Emtri/Tenof Alaf 1 tab PO DAILY 12/13/20 12/13/20 Unknown History [Symtuza 021-489-877-10 mg Tab] Empagliflozin (Nf) [Jardiance (Nf)] 1 tab PO QAM 12/13/20 12/13/20 Unknown History Insulin Glargine,Hum.rec.anlog 20 unit SQ QHS 12/13/20 12/13/20 Unknown History [Lantus Solostar] Lisinopril 20 mg PO DAILY 12/13/20 12/14/20 Unknown History Omeprazole 40 mg PO PRN 12/13/20 12/14/20 Unknown History Valtrex 500 mg BID 12/13/20 12/13/20 Unknown History metFORMIN [Glucophage] 500 mg PO BID 12/13/20 12/13/20 Unknown History Active Meds: Active Medications Acetaminophen (Acetaminophen 325 Mg Tab) 650 mg PO Q6H PRN PRN Reason: Pain, Mild (1-3) Last Admin: 12/13/20 15:17 Dose: 650 mg Documented by: Albuterol (Albuterol 2.5 Mg/3 Ml Nebu) 2.5 mg IH TIDRT [facility] Last Admin: 12/15/20 08:50 Dose: 2.5 mg Documented by: Arformoterol Tartrate (Arformoterol 15 Mcg/2 Ml Nebu) 15 mcg IH Q12HRT [facility] Last Admin: 12/15/20 08:50 Dose: 15 mcg Documented by: Aspirin (Aspirin 325 Mg Tab) 325 mg PO Q24HR [facility] Last Admin: 12/15/20 10:48 Dose: 325 mg Documented by: Atorvastatin Calcium (Atorvastatin 40 Mg Tab) 80 mg PO QHS [facility] Last Admin: 12/14/20 00:38 Dose: Not Given Documented by: Budesonide (Budesonide 0.5 Mg/2 Ml Nebu) 0.5 mg IH Q12HRT [facility] Last Admin: 12/15/20 08:50 Dose: 0.5 mg Documented by: Dextrose (Dextrose 50% In Water (25gm) 50 Ml Syringe) 50 ml IV Q30MIN PRN; Protocol PRN Reason: Hypoglycemia Diphenhydramine HCl (Diphenhydramine 50 Mg/Ml Vial) 25 mg IV Q6H PRN PRN Reason: Itching Last Admin: 12/14/20 04:40 Dose: 25 mg Documented by: Hydrophilic Ointment (Petrolatum,White 30 Gm Oint) 1 applic TP PRN PRN PRN Reason: Skin Irritation Insulin Human Lispro (Insulin Lispro 100 Unit/Ml) 0 unit SUB-Q Q6HR [facility]; Protocol Last Admin: 12/14/20 23:20 Dose: 2 unit Documented by: Miscellaneous Medication (Darunavir/Cob/Emtri/Tenof Alaf [Symtuza [id number] Mg Tab]) 1 tab PO DAILY [facility] Last Admin: 12/15/20 11:53 Dose: Not Given Documented by: Morphine Sulfate (Morphine 4 Mg/1 Ml Inj) 2 mg IV Q4H PRN PRN Reason: Pain Last Admin: 12/14/20 12:00 Dose: 2 mg Documented by: Oxycodone/Acetaminophen (Oxycodone /Acetaminophen 5-325mg Tab) 2 tab PO Q8H PRN PRN Reason: Pain, Moderate (4-6) Last Admin: 12/15/20 11:45 Dose: 2 tab Documented by: Prednisone (Prednisone 20 Mg Tab) 40 mg PO QDAY CHRIS Stop: 12/18/20 10:01 Last Admin: 12/15/20 10:48 Dose: 40 mg Documented by: Sodium Chloride (Sodium Chloride 0.9% 10 Ml Flush Syringe) 10 ml IV PRN PRN PRN Reason: LINE FLUSH Review of Systems All systems: negative (as per HPI;) Physical Examination - Vital Signs Vital Signs: Vital Signs Pulse Ox 95 12/13/20 11:54 - Physical Exam Narrative exam: Gen: nad, well-nourished; Head: normocephalic; Eyes: no gaze deviation; no ptosis; ENT: normal vocalization; CVS: warm and well-perfused; Pulm: no respiratory distress; GI: non-distended, protuberant; Ext: no cyanosis at distal extremities; Skin: no acute rash at distal extremities; Heme: no pathologic bruising at distal extremities; Neuro: alert, oriented to name, age, month, year, surroundings, ?dysarthria, no aphasia, CN 2 - PERRL, visual martin intact, CN 3, 4, 6 - EOMI, CN 5 - facial sensation symmetric to light touch, CN 7 - facial movement symmetric, CN 8 - h earing grossly intact, CN 9, 10 - uvula midline, CN 11 - shrug symmetric, CN 12 - tongue midline; Motor - at least 4/5 at rightl exts; at least 3/5 at left exts w/ mild drift at LUE and drift to bed (secondary to pain) at LLE; Sensory - light touch decreased at left exts, Cerebellar - fnf /hts intact, Gait - deferred secondary to fall risk; NIHSS (1a.) Level of Consciousness:0 (1b.) LOC Questions:0 (1c.) LOC Commands:0 (2.) Best Gaze:0 (3.) Visual:0 (4.) Facial Palsy:0 (5a.) Motor Arm, Left:1 (5b.) Motor Arm, Right:0 (6a.) Motor Leg, Left:2 (6b.) Motor Leg, Right:0 (7.) Limb Ataxia:0 (8.) Sensory:1 (9.) Best Language:0 (10.) Dysarthria:1 (11.) Extinction and Inattention:0 NIHSS Total Score: 5 Results - Laboratory Findings CBC and BMP: 12/13/20 11:57 12/13/20 11:57 Abnormal Lab Findings: Abnormal Labs 12/13/20 12/13/20 12/13/20 11:57 11:57 23:08 RDW 16.5 H BUN 6 L Glucose 320 H POC Glucose 176 H Triglycerides Cholesterol LDL Cholesterol Direct 12/14/20 12/14/20 12/14/20 05:17 05:18 11:49 RDW BUN Glucose POC Glucose 188 H 179 H Triglycerides 274 H Cholesterol 268 H LDL Cholesterol Direct 197 H 12/14/20 12/14/20 12/15/20 17:02 20:36 08:25 RDW BUN Glucose POC Glucose 250 H 243 H 192 H Triglycerides Cholesterol LDL Cholesterol Direct 12/15/20 11:13 RDW BUN Glucose POC Glucose 351 H Triglycerides Cholesterol LDL Cholesterol Direct Assessment and Plan 60 yo female with htn, dm, hld, copd, hiv who presents with acute onset of left- sided weakness w/ dysarthria s/p IV-tPA w/ cta head/neck and mri brain w/o contrast that is unremarkable for an acute process. 1. Acute Ischemic Stroke (?MRI-negative) - aspirin 325 mg po qday; plaix 75 mg po qday x 21 days, statin therapy for a goal ldl of 70; normotension; pt/ot/st/swallow evaln/monitoring; tte, a1c, ldl, tsh-t4. 2. Left-sided weakness- check MRI Brain w/ contrast secondary to hx of HIV. 3. Dysarthria - atypical pattern - ?psychogenic. 4. Conversion d/o- diagnosis of exclusion. 5. Followup with Stroke Neurology in 4 weeks. If MR Brain w/ contrast is unremarkable, patient is cleared by Neurology. Stoney Cooper MD Neurology
[2020-12-15] MEDS ORDERED: LORazepam 2 MG/ML VIAL IV ONE (16:04)
--- NOTE | 2020-12-15 18:00 | Magnetic Resonance Report ---
Contrast-enhanced MR SCAN OF THE BRAIN: INDICATION / CLINICAL INFORMATION: Slurred speech w/ decreased left sided sense; HIV+. TECHNIQUE: Multiplanar, multisequence MR images of the brain obtained. COMPARISON: Nonenhanced MRI scan from 12/14/2020 FINDINGS: BRAIN / INTRACRANIAL CONTENTS: No enhancing parenchymal or meningeal lesions CRANIOCERVICAL JUNCTION: No significant abnormality. ORBITS: No significant abnormality of visualized orbits. SINUSES / MASTOIDS: No significant abnormality of visualized sinuses and mastoid air cells. ADDITIONAL FINDINGS: None. IMPRESSION: No enhancing parenchymal or meningeal lesions Signer Name: Kerri Newell MD Signed: 12/15/2020 5:56 PM Workstation Name: [id number]
[2020-12-16 07:40] VITALS: BP 142/106
--- NOTE | 2020-12-16 08:33 | Discharge Summary ---
Providers - Providers Date of Admission: 12/13/20 14:35 Date of discharge: 12/16/20 Attending physician: SOBEIDA RUSH 12/13/20 14:45 Occupational Therapy Evaluate and Treat [CONS] Routine Comment: Reason For Exam: Neuro deficits Physical Therapy Evaluation and Treat [CONS] Routine Comment: Reason For Exam: Neuro deficits Speech Therapy Evaluation and Treat [CONS] Routine Reason For Exam: swallow eval 12/13/20 14:49 Consult to Dietitian/Nutrition [CONS] Routine Physician Instructions: Reason For Exam: Reason for Consult: Diet education 12/15/20 07:22 Consult to Physician [CONS] Routine Comment: Consulting Provider: DIETER NOLASCO Physician Instructions: Reason For Exam: CVA s/p TPA Primary care physician: [employer] Hospitalization Reason for admission: CVA Condition: Serious Hospital course: 60-year-old -[place] female with history of HIV, diabetes, hypertension, vertigo was brought to the emergency room from home with complaint of left- sided pain, followed by left-sided weakness and dysarthria. The patient was admitted with diagnosis of acute CVA. In the emergency room initial CT scan shows no acute intracranial abnormality. The patient received TPA. Patient also underwent CTA of the head and neck as well as MRI of the brain that was unremarkable for an acute process. The patient was seen by neurology in consultation who recommended aspirin 325 mg po qday; plaix 75 mg po qday x 21 days, statin therapy for a goal ldl of 70; normotension. Neurology felt that the dysarthria was of a atypical pattern and questionable psychogenic. There was also some question of conversion disorder. Neurology recommended MRI brain with contrast secondary to history of HIV. If MRI is negative, patient will be discharged home. Physical therapy felt that the patient was back at her baseline level of functioning with no acute skilled needs. Therefore, patient will be discharged home pending MRI. Dedicated discharge time 35 minutes. Disposition: DC-01 TO HOME OR SELFCARE Time spent for discharge: 35 - Discharge Diagnoses (1) CVA (cerebral vascular accident) Status: Acute Qualifiers: CVA mechanism: unspecified Qualified Code(s): I63.9 - Cerebral infarction, unspecified (2) Diabetes 1.5, managed as type 2 Status: Acute (3) GERD (gastroesophageal reflux disease) Status: Acute (4) Hyperglycemia Status: Acute (5) Hypertension Status: Acute Core Measure Documentation - Palliative Care Palliative Care/ Comfort Measures: Not Applicable - Core Measures Any of the following diagnoses?: stroke - Stroke Discharge Requirements Statin for LDL = or >70 mg/dl on DC: Yes Anticoag for atrial fib/atrial flutter: Not Applicable Antithrombotic for ischemic stroke: Yes Exam - Constitutional Vitals: Temp Pulse Resp BP Pulse Ox 98.3 F 108 H 18 142/106 97 12/16/20 07:34 12/16/20 07:34 12/16/20 07:34 12/16/20 07:34 12/16/20 07:34 General appearance: Present: no acute distress, well-nourished - EENT Eyes: Present: PERRL ENT: hearing intact, clear oral mucosa - Neck Neck: Present: supple, normal ROM - Respiratory Respiratory effort: normal Respiratory: bilateral: CTA - Cardiovascular Heart Sounds: Present: S1 & S2. Absent: rub, click - Extremities Extremities: pulses symmetrical, No edema Peripheral Pulses: within normal limits - Abdominal General gastrointestinal: Present: soft, non-tender, non-distended, normal bowel sounds Female genitourinary: Present: normal - Integumentary Integumentary: Present: clear, warm, dry - Musculoskeletal Musculoskeletal: gait normal, strength equal bilaterally - Psychiatric Psychiatric: appropriate mood/affect, intact judgment & insight - Neurologic Neurologic: CNII-XII intact, moves all extremities Plan Activity: advance as tolerated Weight Bearing Status: Weight Bear as Tolerated Diet: low fat, low cholesterol, low salt, diabetic Prescriptions: Aspirin 325 mg PO Q24HR #30 tablet metFORMIN [Glucophage] 500 mg PO BID #60 Empagliflozin (Nf) [Jardiance (Nf)] 1 tab PO QAM #30 Insulin Glargine,Hum.rec.anlog [Lantus Solostar] 20 unit SQ QHS 30 Days AtorvaSTATin [Lipitor] 80 mg PO QHS #30 tablet Lisinopril 20 mg PO DAILY #30 Omeprazole 40 mg PO PRN #30 Clopidogrel [Plavix] 75 mg PO QDAY #21 tablet ALPRAZolam [Xanax TAB] 0.5 mg PO BID PRN #20 PRN Reason: Anxiety
[2020-12-16] MEDS: INSULIN LISPRO 100 UNIT/ML SUB-Q SCH (08:36)
[2020-12-16] MEDS: oxyCODONE /ACETAMINOPHEN 5-325MG TAB PO PRN (08:37)
[2020-12-16] MEDS: ARFORMOTEROL 15 MCG/2 ML NEBU IH SCH (09:15)
[2020-12-16] MEDS: BUDESONIDE 0.5 MG/2 ML NEBU IH SCH (09:16)
[2020-12-16] MEDS: ALBUTEROL 2.5 MG/3 ML NEBU IH SCH ×2 (09:16→13:57)
[2020-12-16] MEDS: ASPIRIN 325 MG TAB PO SCH (10:48)
[2020-12-16] MEDS: predniSONE 20 MG TAB PO SCH (10:48)
== END 2020-12-16 12:00 | disposition home health service (06) | DRG 61 ==
LOC: ED 11:38 → CC1 14:35 → 4A 12-14 14:15
PROVIDERS: ADMIT Hospitalist; ATTEND Hospitalist
DX: I63.00 Cerebral infarction due to thrombosis of unspecified precerebral artery (principal); B20 Human immunodeficiency virus [HIV] disease; G81.94 Hemiplegia, unspecified affecting left nondominant side; K21.9 Gastro-esophageal reflux disease without esophagitis; I10 Essential (primary) hypertension; E78.5 Hyperlipidemia, unspecified; R29.713 NIHSS score 13; F17.200 Nicotine dependence, unspecified, uncomplicated; R47.81 Slurred speech; R29.810 Facial weakness; E11.65 Type 2 diabetes mellitus with hyperglycemia; R47.1 Dysarthria and anarthria; J44.9 Chronic obstructive pulmonary disease, unspecified
CPT/HCPCS: 36415; 70450; 70496; 70498; 70551; 70552; 80048; 80061; 80076; 80307; 80320; 81001; 82140; 82962; 84443; 84484; 85025; 85610; 85670; 85730; 93005; 93306; 94640; 94660; 94760; 96361; 96365; 96366; 96367; 99406; G0378; A6250; A9270-GY; A9575; G0480; J1200; J1815; J2270; J2997; J7030; J7512; Q9967

== ENCOUNTER 2021-02-12 12:20 | Emergency (ER) | payer MEDICAID ==
--- NOTE | 2021-02-12 13:07 | Emergency Department Report ---
ED Dizziness HPI - General Chief Complaint: Weakness Stated Complaint: WEAKNESS/DIZZY Time Seen by Provider: 02/12/21 12:52 Source: patient, EMS Mode of arrival: Stretcher Limitations: Physical Limitation - History of Present Illness Initial Comments: 60-year-old female, history of hypertension, diabetes, HLD, HIV(undetectable viral load), CVA with left-sided and speech deficits, ED with dizziness. Patient states she had a CVA 2 months ago. Patient has some residual speech and left-sided deficits from the stroke. She reports ever since her stroke 2 months ago is been having dizzy episodes. With these episodes it normally starts as a headache, then she feels as if the room is spinning, she feels lightheaded. Patient states most of the time she will completely pass out or lose consciousness. Patient states this is what happened today, however she not have a complete syncopal episode. Patient states on Tuesday, 6 days ago, she was at work at the [employer] and she had another one of her episodes, however she did completely pass out. Patient states she was transported to [facility], where she stayed for 3 days. States she was discharged 3 days ago. Patient states she had an MRI which did not show any evidence of another stroke. States she also had an EEG done which appeared to be normal. Patient states she was told that she may have possibly had a seizure, however she was not discharged on any seizure medications. Patient states what happened today is the same as what has been happening over the last 2 months. She denies any new deficits. Patient states she came to the ED today because her made her. She currently reports a mild headache. States dizziness is improving. MD Complaint: dizziness, near syncope -: This afternoon Description: "room spinning", lightheadedness, near-syncope History of Same: Yes History of Trauma: No Severity: moderate Improves With: nothing Worsens With: nothing Associated Symptoms: denies: chest pain, fever/chills, shortness of breath - Related Data Home Medications Medication Instructions Recorded Confirmed Last Taken Amitriptyline [Elavil] 100 mg PO QHS 12/13/20 12/13/20 Unknown Bimatoprost [Lumigan] 1 drop OU QHS 12/13/20 12/13/20 Unknown Bimatoprost [Lumigan] 2.5 ml OP BID 12/13/20 12/14/20 Unknown Darunavir/Cob/Emtri/Tenof Alaf 1 tab PO DAILY 12/13/20 12/13/20 Unknown [Symtuza [id number] mg Tab] Valtrex 500 mg BID 12/13/20 12/13/20 Unknown Previous Rx's Medication Instructions Recorded Last Taken Type Oxycodone HCl [Oxycodone HCl 10mg 10 mg PO Q8H PRN #3 tablet 11/27/17 Unknown Rx tab] ALPRAZolam [Xanax TAB] 0.5 mg PO BID PRN #20 12/16/20 Unknown Rx Aspirin 325 mg PO Q24HR #30 tablet 12/16/20 Unknown Rx AtorvaSTATin [Lipitor] 80 mg PO QHS #30 tablet 12/16/20 Unknown Rx Clopidogrel [Plavix] 75 mg PO QDAY #21 tablet 12/16/20 Unknown Rx Empagliflozin (Nf) [Jardiance (Nf)] 1 tab PO QAM #30 12/16/20 Unknown Rx Insulin Glargine,Hum.rec.anlog 20 unit SQ QHS 30 Days 12/16/20 Unknown Rx [Lantus Solostar] Lisinopril 20 mg PO DAILY #30 12/16/20 Unknown Rx Omeprazole 40 mg PO PRN #30 12/16/20 Unknown Rx metFORMIN [Glucophage] 500 mg PO BID #60 12/16/20 Unknown Rx Meclizine [Antivert] 25 mg PO TID PRN #20 tablet 02/12/21 Unknown Rx Allergies Allergy/AdvReac Type Severity Reaction Status Date / Time No Known Allergies Allergy Unverified 05/29/20 17:04 ED Review of Systems ROS: Stated complaint: WEAKNESS/DIZZY Other details as noted in HPI Comment: All other systems reviewed and negative Constitutional: denies: chills, fever Respiratory: denies: shortness of breath Cardiovascular: denies: chest pain, palpitations Gastrointestinal: denies: nausea, vomiting, diarrhea Neurological: headache, vertigo ED Past Medical Hx - Past Medical History Hx Hypertension: Yes Hx CVA: Yes (L sided deficits) Hx Diabetes: Yes Hx COPD: Yes Hx HIV: Yes Additional medical history: squamous cell carcinoma, - Surgical History Additional Surgical History: skin graft, cancer removed from vulva, d&c - Social History Smoking Status: Current Every Day Smoker Substance Use Type: Marijuana - Medications Home Medications: Home Medications Medication Instructions Recorded Confirmed Last Taken Type Oxycodone HCl [Oxycodone HCl 10mg 10 mg PO Q8H PRN #3 tablet 11/27/17 12/13/20 Unknown Rx tab] Amitriptyline [Elavil] 100 mg PO QHS 12/13/20 12/13/20 Unknown History Bimatoprost [Lumigan] 1 drop OU QHS 12/13/20 12/13/20 Unknown History Bimatoprost [Lumigan] 2.5 ml OP BID 12/13/20 12/14/20 Unknown History Darunavir/Cob/Emtri/Tenof Alaf 1 tab PO DAILY 12/13/20 12/13/20 Unknown History [Symtuza [id number] mg Tab] Valtrex 500 mg BID 12/13/20 12/13/20 Unknown History ALPRAZolam [Xanax TAB] 0.5 mg PO BID PRN #20 12/16/20 Unknown Rx Aspirin 325 mg PO Q24HR #30 tablet 12/16/20 Unknown Rx AtorvaSTATin [Lipitor] 80 mg PO QHS #30 tablet 12/16/20 Unknown Rx Clopidogrel [Plavix] 75 mg PO QDAY #21 tablet 12/16/20 Unknown Rx Empagliflozin (Nf) [Jardiance (Nf)] 1 tab PO QAM #30 12/16/20 Unknown Rx Insulin Glargine,Hum.rec.anlog 20 unit SQ QHS 30 Days 12/16/20 Unknown Rx [Lantus Solostar] Lisinopril 20 mg PO DAILY #30 12/16/20 Unknown Rx Omeprazole 40 mg PO PRN #30 12/16/20 Unknown Rx metFORMIN [Glucophage] 500 mg PO BID #60 12/16/20 Unknown Rx Meclizine [Antivert] 25 mg PO TID PRN #20 tablet 02/12/21 Unknown Rx ED Physical Exam - General Limitations: Physical Limitation General appearance: alert, in no apparent distress - Head Head exam: Present: atraumatic, normocephalic - Eye Eye exam: Present: normal appearance, EOMI - ENT ENT exam: Present: mucous membranes moist - Neck Neck exam: Present: normal inspection - Respiratory Respiratory exam: Present: normal lung sounds bilaterally. Absent: respiratory distress - Cardiovascular Cardiovascular Exam: Present: regular rate, normal rhythm - GI/Abdominal GI/Abdominal exam: Present: soft. Absent: distended, tenderness - Extremities Exam Extremities exam: Present: normal inspection - Neurological Exam Neurological exam: Present: alert, oriented X3, CN II-XII intact, normal gait. Absent: motor sensory deficit - Psychiatric Psychiatric exam: Present: normal affect, normal mood - Skin Skin exam: Present: warm, dry, intact, normal color ED Course Vital Signs 02/12/21 02/12/21 02/12/21 12:28 12:32 12:46 Temperature 98.5 F Pulse Rate 86 84 Respiratory 18 19 Rate Blood Pressure 131/77 131/77 O2 Sat by Pulse 99 99 96 Oximetry 02/12/21 02/12/21 02/12/21 13:00 13:08 13:16 Temperature Pulse Rate 87 Respiratory 19 18 Rate Blood Pressure 134/79 130/77 O2 Sat by Pulse 99 97 95 Oximetry 02/12/21 02/12/21 02/12/21 13:30 13:45 14:06 Temperature Pulse Rate 89 94 H 85 Respiratory 24 23 15 Rate Blood Pressure 134/87 110/78 110/78 O2 Sat by Pulse 96 94 97 Oximetry 02/12/21 02/12/21 02/12/21 14:16 14:30 14:46 Temperature Pulse Rate 87 91 H 82 Respiratory 22 19 17 Rate Blood Pressure 139/85 110/78 126/81 O2 Sat by Pulse 95 95 95 Oximetry 02/12/21 02/12/21 02/12/21 15:00 15:16 15:30 Temperature Pulse Rate 92 H 113 H Respiratory 20 19 18 Rate Blood Pressure 123/87 142/82 152/92 O2 Sat by Pulse 94 99 94 Oximetry 02/12/21 15:46 Temperature Pulse Rate 93 H Respiratory 11 L Rate Blood Pressure 134/84 O2 Sat by Pulse 97 Oximetry ED Medical Decision Making - Lab Data Result diagrams: 02/12/21 13:28 02/12/21 13:28 - EKG Data -: EKG Interpreted by Or EKG shows normal: sinus rhythm, axis, intervals, QRS complexes, ST-T waves Rate: normal - EKG Data Interpretation: no acute changes - Radiology Data Radiology results: report reviewed, image reviewed - Medical Decision Making Discharge Summary 12/16/20: 60-year-old -[place] female with history of HIV, diabetes, hypertension, vertigo was brought to the emergency room from home with complaint of left- sided pain, followed by left-sided weakness and dysarthria. The patient was admitted with diagnosis of acute CVA. In the emergency room initial CT scan shows no acute intracranial abnormality. The patient received TPA. Patient also underwent CTA of the head and neck as well as MRI of the brain that was unremarkable for an acute process. The patient was seen by neurology in consultation who recommended aspirin 325 mg po qday; plaix 75 mg po qday x 21 days, statin therapy for a goal ldl of 70; normotension. Neurology felt that the dysarthria was of a atypical pattern and questionable psychogenic. There was also some question of conversion disorder. Neurology recommended MRI brain with contrast secondary to history of HIV. If MRI is negative, patient will be discharged home. Physical therapy felt that the patient was back at her baseline level of functioning with no acute skilled needs. Therefore, patient will be discharged home pending MRI. Pt presents to ED with dizziness and near-syncopal episode. Pt reports this is the same episode that has been happening over the last 2 months since her stroke. According to above discharge summary from December, MRI was negative for evidence of CVA. Symptoms were thought to possibly be psychogenic by neurology with some question of conversion disorder. Pt was recently fully worked up at [facility] for syncopal episode less than a week ago. To ld it was possible seizures. Pt currently has no new neuro deficits. Labs normal. CT Head normal. Vitals stable. Patient requesting Percocet for her headache, which was not given. Pt has been ambulatory here in the ED without difficulty. Will discharge at this time w/ rx for meclizine. Outpt f/u advised, return precautions given. Critical care attestation.: If time is entered above; I have spent that time in minutes in the direct care of this critically ill patient, excluding procedure time. ED Disposition Clinical Impression: Near syncope, Dizziness Disposition: DC-01 TO HOME OR SELFCARE Is pt being admited?: No Condition: Stable Instructions: Near-Syncope, [id number], Dizziness, [id number] Prescriptions: Meclizine [Antivert] 25 mg PO TID PRN #20 tablet PRN Reason: Vertigo Referrals: PRIMARY CARE, [Primary Care Provider] - 3-5 Days Time of Disposition: 16:01
[2021-02-12] MEDS ORDERED: IBUPROFEN 800 MG TAB PO ONE (13:09)
--- NOTE | 2021-02-12 13:31 | XRay Report ---
CHEST 1 VIEW INDICATION / CLINICAL INFORMATION: dizziness. COMPARISON: 10/05/2020 FINDINGS: SUPPORT DEVICES: None. HEART / MEDIASTINUM: No significant abnormality. LUNGS / PLEURA: No significant pulmonary or pleural abnormality. No pneumothorax. ADDITIONAL FINDINGS: No significant additional findings. IMPRESSION: No acute disease or interval change from 10/05/2020 Signer Name: Trae Cali MD FACR Signed: 02/12/2021 1:26 PM Workstation Name: [id number] [employer]
[2021-02-12] MEDS ORDERED: MECLIZINE 25 MG TAB PO ONE (14:08)
[2021-02-12 14:16] LABS: Basophils % (Auto) 0.5 % (0.0-1.8); Eosinophils # (Auto) 0.3 K/mm3 (0.0-0.4); Eosinophils % (Auto) 4.2 % (0.0-4.3); Hematocrit 38.8 % (30.3-42.9); Hemoglobin 12.5 gm/dl (10.1-14.3); Lymphocytes # (Auto) 2.6 K/mm3 (1.2-5.4); Lymphocytes % (Auto) 38.6 % (13.4-35.0); Mean Corpuscular HGB Conc 32 % (30-34); Mean Corpuscular Volume 94 fl (79-97); Monocytes # (Auto) 0.3 K/mm3 (0.0-0.8); Monocytes % (Auto) 4.8 % (0.0-7.3); Platelet Count 203 K/mm3 (140-440); Red Blood Count 4.12 M/mm3 (3.65-5.03); Red Cell Distribution Width 14.8 % (13.2-15.2)
--- NOTE | 2021-02-12 14:18 | Cat Scan Report ---
CT HEAD WITHOUT CONTRAST INDICATION / CLINICAL INFORMATION: dizziness. TECHNIQUE: All CT scans at this location are performed using CT dose reduction for ALARA by means of automated e xposure control. COMPARISON: MR brain with contrast 12/15/2020. Prior CT head 12/14/2020. FINDINGS: HEMORRHAGE: None. EXTRA-AXIAL SPACES: Normal in size and morphology for the patient's age. VENTRICULAR SYSTEM: Normal in size and morphology for the patient's age. CEREBRAL PARENCHYMA: No significant abnormality. No acute territorial infarct. MIDLINE SHIFT OR HERNIATION: None. CEREBELLUM / BRAINSTEM: No significant abnormality. ORBITS: Normal as visualized. SOFT TISSUES of HEAD: No significant abnormality. CALVARIUM: No significant abnormality. PARANASAL SINUSES / MASTOID AIR CELLS: Normal as visualized. ADDITIONAL FINDINGS: None. IMPRESSION: 1. No acute intracranial abnormality. No significant interval change since 12/14/2020. Signer Name: Rich Vasquez MD Signed: 02/12/2021 2:13 PM Workstation Name: [id number]
[2021-02-12 14:32] LABS: BUN/Creatinine Ratio 13; Blood Urea Nitrogen 10 mg/dL (7-17); Calcium 9.4 mg/dL (8.4-10.2); Hemolysis Index 3
[2021-02-12 14:34] LABS: INR 0.94 (0.87-1.13)
[2021-02-12 17:02] VITALS: BP 134/84
--- NOTE | 2021-02-13 17:10 | Electrocardiograph Report ---
[facility] Test Date: 2021-02-12 Test Time: 13:43:27 Pat Name: MICHAEL RAVI Department: Room: Gender: F [employer] St[employer] Operator: NOELLE : 1960 Requested By: ALIYAH MATA Order Number: [id number] Reading MD: Irving Alcocer Measurements Intervals [place] Rate: 87 P: 43 HI: 138 QRS: 0 QRSD: 90 T: 32 QT: 383 QTc: 462 Interpretive Statements Sinus rhythm No previous ECG available for comparison Electronically Signed On 02-13-2021 17:10:17 EDT by Irving Alcocer
== END 2021-02-12 16:18 | disposition home or self-care (01) ==
LOC: ED 12:20
DX: R55 Syncope and collapse (principal); R42 Dizziness and giddiness; I10 Essential (primary) hypertension; E11.9 Type 2 diabetes mellitus without complications; J44.9 Chronic obstructive pulmonary disease, unspecified; F17.200 Nicotine dependence, unspecified, uncomplicated; F12.10 Cannabis abuse, uncomplicated; Z98.890 Other specified postprocedural states; Z21 Asymptomatic human immunodeficiency virus [HIV] infection status; Z79.4 Long term (current) use of insulin; Z79.899 Other long term (current) drug therapy
CPT/HCPCS: 36415; 70450; 71045; 80048; 84484; 85025; 85610; 85730; 93005

== ENCOUNTER 2021-04-13 12:45 | Emergency (ER) | payer MEDICAID ==
[2021-04-13] MEDS ORDERED: IPRATROPIUM/ALBUTEROL SULFATE 3 ML AMPUL.NEB IH ONE (12:52)
--- NOTE | 2021-04-13 13:15 | Emergency Department Report ---
Blank Doc - Documentation Documentation: 60-year-old female that presents with chest tightness and SOB x 1.5 weeks and worsening. HX of asthma and has been taking medications with no relief. Exam: some expiratory wheezing noted on exam. Tachycardia in triage. 1- This is a initial triage assessment/medical screening only. Full assessment and work-up will be completed once the patient is in proper hospital gown, ED bed and in a private room setting. This initial assessment/diagnostic orders/clinical plan/ treatment(s) is/are subject to change based on pt's health status, clinical progression and re-assessment by fellow clinical providers in the ED. Further treatment and workup at subsequent clinical providers discretion. Patient/guardians urged not to elope from ED as their condition may be serious if not clinically assessed and managed. 2-cardiac work-up
--- NOTE | 2021-04-13 13:34 | XRay Report ---
CHEST 2 VIEWS INDICATION / CLINICAL INFORMATION: Chest Pain. COMPARISON: None available. FINDINGS: SUPPORT DEVICES: None. HEART / MEDIASTINUM: No significant abnormality. LUNGS / PLEURA: No significant pulmonary or pleural abnormality. No pneumothorax. ADDITIONAL FINDINGS: No significant additional findings. IMPRESSION: 1. No acute findings. Signer Name: Oniel Howe MD Signed: 04/13/2021 1:29 PM Workstation Name: [id number]
[2021-04-13 14:10] LABS: Basophils # (Auto) 0.1 K/mm3 (0.0-0.1); Basophils % (Auto) 1.6 % (0.0-1.8); Eosinophils # (Auto) 0.3 K/mm3 (0.0-0.4); Hemoglobin 13.1 gm/dl (10.1-14.3); Lymphocytes # (Auto) 2.6 K/mm3 (1.2-5.4); Lymphocytes % (Auto) 37.3 % (13.4-35.0); Mean Corpuscular HGB Conc 34 % (30-34); Mean Corpuscular Volume 92 fl (79-97); Monocytes # (Auto) 0.4 K/mm3 (0.0-0.8); Platelet Count 189 K/mm3 (140-440); Red Blood Count 4.23 M/mm3 (3.65-5.03); Red Cell Distribution Width 15.5 % (13.2-15.2)
[2021-04-13 14:23] LABS: INR 0.96 (0.87-1.13)
[2021-04-13 14:24] LABS: Partial Thromboplastin Time 30.4 Sec. (24.2-36.6)
[2021-04-13 14:49] LABS: Alanine Aminotransferase 17 units/L (7-56); Albumin 3.9 g/dL (3.9-5); Blood Urea Nitrogen 9 mg/dL (7-17); Calcium 9.8 mg/dL (8.4-10.2); Hemolysis Index 43
[2021-04-13 14:57] LABS: BUN/Creatinine Ratio 15
--- NOTE | 2021-04-13 15:00 | Emergency Department Report ---
ED General Adult HPI - General Chief complaint: Dyspnea/Respdistress Stated complaint: DIFF BREATHING/COUGH PUI?: No Time Seen by Provider: 04/13/21 12:51 Source: patient, RN notes reviewed, old records reviewed Mode of arrival: Ambulatory Limitations: No Limitations - History of Present Illness Initial comments: The patient was evaluated in the emergency department for symptoms described in the history of present illness. He/she was evaluated in the context of the global COVID-19 pandemic, which necessitated consideration that the patient might be at risk for infection with the virus that causes COVID-19. Institutional protocols and algorithms that pertain to the evaluation of patients at risk for COVID-19 are in a state of rapid change based on information released by regulatory bodies including the CDC and federal and state organizations. These policies and algorithms were followed during the patient's care in the emergency department. Please note that these policies, procedures and recommendations changed on a rapid basis. Primary CARE doctor: Dr. Marte The patient is a 60-year-old female. Her past medical history includes COPD, not on home oxygen, hypertension, HIV, reported undetectable viral load, and compliance with antiviral therapy. The patient presents to the ER today with a few days of cough, chest wall tightness, wheezing, shortness of breath, without fever, vomiting, diaphoresis, travel, surgery, leg pain, leg swelling. In the emergency room, she denied loss of taste and smell, reports having received her Covid vaccination, and her symptoms were much improved with albuterol, Atrovent, steroids. The patient now reports complete resolution of symptoms, and readiness for discharge. -: Gradual, days(s) Location: chest, back Radiation: non-radiation Quality: aching Consistency: intermittent Improves with: rest Worsens with: movement, other (Palpation) - Related Data Home Medications Medication Instructions Recorded Confirmed Last Taken Amitriptyline [Elavil] 100 mg PO QHS 12/13/20 12/13/20 Unknown Bimatoprost [Lumigan] 1 drop OU QHS 12/13/20 12/13/20 Unknown Bimatoprost [Lumigan] 2.5 ml OP BID 12/13/20 12/14/20 Unknown Darunavir/Cob/Emtri/Tenof Alaf 1 tab PO DAILY 12/13/20 12/13/20 Unknown [Symtuza [id number] mg Tab] Valtrex 500 mg BID 12/13/20 12/13/20 Unknown Previous Rx's Medication Instructions Recorded Last Taken Type Oxycodone HCl [Oxycodone HCl 10mg 10 mg PO Q8H PRN #3 tablet 11/27/17 Unknown Rx tab] ALPRAZolam [Xanax TAB] 0.5 mg PO BID PRN #20 12/16/20 Unknown Rx Aspirin 325 mg PO Q24HR #30 tablet 12/16/20 Unknown Rx AtorvaSTATin [Lipitor] 80 mg PO QHS #30 tablet 12/16/20 Unknown Rx Clopidogrel [Plavix] 75 mg PO QDAY #21 tablet 12/16/20 Unknown Rx Empagliflozin (Nf) [Jardiance (Nf)] 1 tab PO QAM #30 12/16/20 Unknown Rx Insulin Glargine,Hum.rec.anlog 20 unit SQ QHS 30 Days 12/16/20 Unknown Rx [Lantus Solostar] Lisinopril 20 mg PO DAILY #30 12/16/20 Unknown Rx Omeprazole 40 mg PO PRN #30 12/16/20 Unknown Rx metFORMIN [Glucophage] 500 mg PO BID #60 12/16/20 Unknown Rx Meclizine [Antivert] 25 mg PO TID PRN #20 tablet 02/12/21 Unknown Rx Acetaminophen [Non-Aspirin Extra 500 mg PO Q6HR PRN #30 tablet 04/13/21 Unknown Rx Strength] Albuterol Sulfate [Albuterol 0.63% 0.63 mg IH Q4HR PRN #2 ml 04/13/21 Unknown Rx NEBS] Albuterol Sulfate [Proair 90 mcg IH Q4HR PRN #2 aer.pow.ba 04/13/21 Unknown Rx Respiclick] Benzonatate [Tessalon Perles] 100 mg PO Q8HR PRN #30 capsule 04/13/21 Unknown Rx DOXYCYCLINE Hyclate [Vibramycin] 100 mg PO Q12HR #10 capsule 04/13/21 Unknown Rx Ipratropium (Nf) [Atrovent] 2 puff IH Q6HR PRN #1 inha 04/13/21 Unknown Rx Ipratropium [Atrovent NEB] 0.5 mg IH Q4HR #2 ml 04/13/21 Unknown Rx predniSONE [Deltasone] 40 mg PO QDAY #8 tab 04/13/21 Unknown Rx Allergies Allergy/AdvReac Type Severity Reaction Status Date / Time No Known Allergies Allergy Unverified 05/29/20 17:04 ED Review of Systems ROS: Stated complaint: DIFF BREATHING/COUGH Other details as noted in HPI Constitutional: malaise, weakness. denies: fever Eyes: denies: eye discharge ENT: congestion Respiratory: shortness of breath, SOB with exertion, SOB at rest, wheezing Cardiovascular: other (Chest wall pain and) Gastrointestinal: denies: abdominal pain, vomiting Musculoskeletal: myalgia Neurological: weakness Psychiatric: anxiety Hematological/Lymphatic: denies: easy bleeding ED Past Medical Hx - Past Medical History Previous Medical History?: Yes Hx Hypertension: Yes Hx CVA: Yes (L sided deficits) Hx Diabetes: Yes Hx COPD: Yes Hx HIV: Yes Additional medical history: squamous cell carcinoma, - Surgical History Past Surgical History?: Yes Additional Surgical History: skin graft, cancer removed from vulva, d&c - Social History Smoking Status: Current Every Day Smoker Substance Use Type: Marijuana - Medications Home Medications: Home Medications Medication Instructions Recorded Confirmed Last Taken Type Oxycodone HCl [Oxycodone HCl 10mg 10 mg PO Q8H PRN #3 tablet 11/27/17 12/13/20 Unknown Rx tab] Amitriptyline [Elavil] 100 mg PO QHS 12/13/20 12/13/20 Unknown History Bimatoprost [Lumigan] 1 drop OU QHS 12/13/20 12/13/20 Unknown History Bimatoprost [Lumigan] 2.5 ml OP BID 12/13/20 12/14/20 Unknown History Darunavir/Cob/Emtri/Tenof Alaf 1 tab PO DAILY 12/13/20 12/13/20 Unknown History [Symtuza [id number] mg Tab] Valtrex 500 mg BID 12/13/20 12/13/20 Unknown History ALPRAZolam [Xanax TAB] 0.5 mg PO BID PRN #20 12/16/20 Unknown Rx Aspirin 325 mg PO Q24HR #30 tablet 12/16/20 Unknown Rx AtorvaSTATin [Lipitor] 80 mg PO QHS #30 tablet 12/16/20 Unknown Rx Clopidogrel [Plavix] 75 mg PO QDAY #21 tablet 12/16/20 Unknown Rx Empagliflozin (Nf) [Jardiance (Nf)] 1 tab PO QAM #30 12/16/20 Unknown Rx Insulin Glargine,Hum.rec.anlog 20 unit SQ QHS 30 Days 12/16/20 Unknown Rx [Lantus Solostar] Lisinopril 20 mg PO DAILY #30 12/16/20 Unknown Rx Omeprazole 40 mg PO PRN #30 12/16/20 Unknown Rx metFORMIN [Glucophage] 500 mg PO BID #60 12/16/20 Unknown Rx Meclizine [Antivert] 25 mg PO TID PRN #20 tablet 02/12/21 Unknown Rx Acetaminophen [Non-Aspirin Extra 500 mg PO Q6HR PRN #30 tablet 04/13/21 Unknown Rx Strength] Albuterol Sulfate [Albuterol 0.63% 0.63 mg IH Q4HR PRN #2 ml 04/13/21 Unknown Rx NEBS] Albuterol Sulfate [Proair 90 mcg IH Q4HR PRN #2 aer.pow.ba 04/13/21 Unknown Rx Respiclick] Benzonatate [Tessalon Perles] 100 mg PO Q8HR PRN #30 capsule 04/13/21 Unknown Rx DOXYCYCLINE Hyclate [Vibramycin] 100 mg PO Q12HR #10 capsule 04/13/21 Unknown Rx Ipratropium (Nf) [Atrovent] 2 puff IH Q6HR PRN #1 inha 04/13/21 Unknown Rx Ipratropium [Atrovent NEB] 0.5 mg IH Q4HR #2 ml 04/13/21 Unknown Rx predniSONE [Deltasone] 40 mg PO QDAY #8 tab 04/13/21 Unknown Rx ED Physical Exam - General Limitations: No Limitations General appearance: alert, anxious, in distress (Initially mild to moderate resp iratory distress), obese - Head Head exam: Present: atraumatic, normocephalic - Eye Eye exam: Present: normal appearance, EOMI. Absent: nystagmus - ENT ENT exam: Present: normal exam, normal orophraynx, mucous membranes moist, normal external ear exam - Neck Neck exam: Present: normal inspection, full ROM. Absent: tenderness, meningismus - Respiratory Respiratory exam: Present: respiratory distress, wheezes, rhonchi, chest wall tenderness - Cardiovascular Cardiovascular Exam: Present: normal rhythm, tachycardia, normal heart sounds. Absent: bradycardia, systolic murmur, diastolic murmur, rubs, gallop - GI/Abdominal GI/Abdominal exam: Present: soft. Absent: distended, tenderness, guarding, rebound, rigid, pulsatile mass - Extremities Exam Extremities exam: Present: normal inspection, full ROM, other (2+ pulses noted in the bilateral upper and lower extremities. There is no palpable cord. negative Homans sign. Muscular compartments are soft. The pelvis is stable.). Absent: pedal edema, calf tenderness - Back Exam Back exam: Present: normal inspection, full ROM. Absent: tenderness, CVA tenderness (R), CVA tenderness (L), paraspinal tenderness, vertebral tenderness - Neurological Exam Neurological exam: Present: alert, oriented X3, normal gait, other (No facial droop. Tongue midline. Extraocular movements intact bilaterally. Facial sensation intact to light touch in V1, V2, V3 distribution bilaterally. 5 and a 5 strength in 4 extremities. Sensation intact to light touch in 4 extremities.). Absent: motor sensory deficit - Psychiatric Psychiatric exam: Present: anxious - Skin Skin exam: Present: warm, dry, intact, normal color. Absent: rash ED Course Vital Signs 04/13/21 04/13/21 04/13/21 12:50 14:49 16:41 Temperature 98.3 F 98.0 F Pulse Rate 110 H 89 Pulse Rate [ 90 Posterior Bilateral Throughout] Respiratory 22 18 Rate Respiratory 21 Rate [Posterior Bilateral Throughout] Blood Pressure 116/87 Blood Pressure 128/79 [Left] O2 Sat by Pulse 100 98 Oximetry ED Medical Decision Making - Lab Data Result diagrams: 04/13/21 13:42 04/13/21 13:42 Vital Signs 04/13/21 04/13/21 04/13/21 12:50 14:49 16:41 Temperature 98.3 F 98.0 F Pulse Rate 110 H 89 Pulse Rate [ 90 Posterior Bilateral Throughout] Respiratory 22 18 Rate Respiratory 21 Rate [Posterior Bilateral Throughout] Blood Pressure 116/87 Blood Pressure 128/79 [Left] O2 Sat by Pulse 100 98 Oximetry Lab Results 04/13/21 04/13/21 04/13/21 Range/Units 13:42 13:42 13:42 WBC 7.1 (4.5-11.0) K/mm3 RBC 4.23 (3.65-5.03) M/mm3 Hgb 13.1 (10.1-14.3) gm/dl Hct 39.0 (30.3-42.9) % MCV 92 (79-97) fl MCH 31 (28-32) pg MCHC 34 (30-34) % RDW 15.5 H (13.2-15.2) % Plt Count 189 (140-440) K/mm3 Lymph % (Auto) 37.3 H (13.4-35.0) % [place] % (Auto) 5.0 (0.0-7.3) % Eos % (Auto) 4.0 (0.0-4.3) % Baso % (Auto) 1.6 (0.0-1.8) % Lymph # (Auto) 2.6 (1.2-5.4) K/mm3 [place] # (Auto) 0.4 (0.0-0.8) K/mm3 Eos # (Auto) 0.3 (0.0-0.4) K/mm3 Baso # (Auto) 0.1 (0.0-0.1) K/mm3 Seg Neutrophils % 52.1 (40.0-70.0) % Seg Neutrophils # 3.7 (1.8-7.7) K/mm3 PT 13.4 (12.2-14.9) Sec. INR 0.96 (0.87-1.13) APTT 30.4 (24.2-36.6) Sec. Sodium 138 (137-145) mmol/L Potassium 4.3 (3.6-5.0) mmol/L Chloride 102.3 (98-107) mmol/L Carbon Dioxide 21 L (22-30) mmol/L Anion Gap 19 mmol/L BUN 9 (7-17) mg/dL Creatinine 0.6 (0.6-1.2) mg/dL Estimated GFR > 60 ml/min BUN/Creatinine Ratio 15 % Glucose 109 H (65-100) mg/dL Calcium 9.8 (8.4-10.2) mg/dL Total Bilirubin < 0.20 (0.1-1.2) mg/dL AST 7 (5-40) units/L ALT 17 (7-56) units/L Alkaline Phosphatase 116 (35-129) units/L Troponin T < 0.010 (0.00-0.029) ng/mL NT-Pro-B Natriuret Pep (0-900) pg/mL Total Protein 7.8 (6.3-8.2) g/dL Albumin 3.9 (3.9-5) g/dL Albumin/Globulin Ratio 1.0 % 04/13/21 04/13/21 Range/Units 13:42 15:49 WBC (4.5-11.0) K/mm3 RBC (3.65-5.03) M/mm3 Hgb (10.1-14.3) gm/dl Hct (30.3-42.9) % MCV (79-97) fl MCH (28-32) pg MCHC (30-34) % RDW (13.2-15.2) % Plt Count (140-440) K/mm3 Lymph % (Auto) (13.4-35.0) % [place] % (Auto) (0.0-7.3) % Eos % (Auto) (0.0-4.3) % Baso % (Auto) (0.0-1.8) % Lymph # (Auto) (1.2-5.4) K/mm3 [place] # (Auto) (0.0-0.8) K/mm3 Eos # (Auto) (0.0-0.4) K/mm3 Baso # (Auto) (0.0-0.1) K/mm3 Seg Neutrophils % (40.0-70.0) % Seg Neutrophils # (1.8-7.7) K/mm3 PT (12.2-14.9) Sec. INR (0.87-1.13) APTT (24.2-36.6) Sec. Sodium (137-145) mmol/L Potassium (3.6-5.0) mmol/L Chloride (98-107) mmol/L Carbon Dioxide (22-30) mmol/L Anion Gap mmol/L BUN (7-17) mg/dL Creatinine (0.6-1.2) mg/dL Estimated GFR ml/min BUN/Creatinine Ratio % Glucose (65-100) mg/dL Calcium (8.4-10.2) mg/dL Total Bilirubin (0.1-1.2) mg/dL AST (5-40) units/L ALT (7-56) units/L Alkaline Phosphatase (35-129) units/L Troponin T < 0.010 (0.00-0.029) ng/mL NT-Pro-B Natriuret Pep 25.15 (0-900) pg/mL Total Protein (6.3-8.2) g/dL Albumin (3.9-5) g/dL Albumin/Globulin Ratio % - EKG Data -: EKG Interpreted by Pr EKG shows normal: sinus rhythm Rate: normal - EKG Data 04/13/21 18:02 EKG interpreted at 13: 06 Sinus rhythm, 95 bpm. Left axis deviation, borderline left anterior fascicular block, QTC prolonged, not a STEMI, abnormal EKG, unchanged from prior EKG from January 2021 - Radiology Data Radiology results: pending, report reviewed, image reviewed Study Comments [facility] [address] [place] [address] XRay Report Signed Patient: MICHAEL RAVI MR#: [id number] : 1960 Acct:[id number] Age/Sex: 60 / F ADM Date: 04/13/21 Loc: ED Attending Dr: Ordering Physician: ALVAREZ MAYORGA NP Date of Service: 04/13/21 Procedure(s): XR chest routine 2V Accession Number(s): [id number] cc: ALVAREZ MYAORGA NP Fluoro Time In Minutes: CHEST 2 VIEWS INDICATION / CLINICAL INFORMATION: Chest Pain. COMPARISON: None available. FINDINGS: SUPPORT DEVICES: None. HEART / MEDIASTINUM: No significant abnormality. LUNGS / PLEURA: No significant pulmonary or pleural abnormality. No pneumothorax. ADDITIONAL FINDINGS: No significant additional findings. IMPRESSION: 1. No acute findings. Signer Name: Oniel Howe MD Signed: 04/13/2021 1:29 PM Workstation Name: [id number] Transcribed By: CW Dictated By: FRANCHESKA HOWE MD Electronically Authenticated By: FRANCHESKA HOWE MD Signed Date/Time: 04/13/211328 DD/ 1325 - Medical Decision Making Differential diagnosis, including but not limited to: Costochondritis, COPD exacerbation, pneumonia, GERD, gastritis, hiatal hernia Assessment and plan: 60-year-old female, with resolved tachycardia, resolved reactive airways disease, and wheezing, with probable COPD exacerbation. She denies travel, surgery, immobilization, DVT and pulmonary embolism risk factors. She is low risk by Wells criteria at this time, and low risk for major adverse cardiac event as per heart score. Her symptoms were markedly improved with albuterol, Atrovent, steroids and conservative therapy, and she is reliable to follow-up with an outpatient primary care doctor and/or emergency specialist. Patient given trial of ambulation, and did not have significant desaturation. Return precautions are reviewed. On final reassessment, patient sitting up in stretcher, playing on cell phone, asking to be discharged, before gets dark out. Critical Care Time: Yes Critical care time in (mins) excluding proc time.: 35 Critical care attestation.: If time is entered above; I have spent that time in minutes in the direct care of this critically ill patient, excluding procedure time. ED Disposition Clinical Impression: COPD exacerbation Disposition: DC-01 TO HOME OR SELFCARE Is pt being admited?: No Does the pt Need Aspirin: No Condition: Good Instructions: Chronic Obstructive Pulmonary Disease (ED), Chronic Obstructive Pulmonary Disease Additional Instructions: Please take the medications as directed. Follow-up with a primary care doctor or emergency specialist within the next 5 to 7 days. For the patient's convenience, a number of local pulmonology specialists have been listed. Please return to the emergency room right away with new pain, worsened pain, migration of pain, projectile vomiting, change in mental status, confusion, inability to tolerate liquid feeds, new, worsened or different symptoms not present on the initial ER evaluation. Avoid consumption of alcohol, Motrin, ibuprofen, Naprosyn, Aleve, heavy and spicy foods. Avoid exposure to the sun while taking the doxycycline, as this medication can cause photosensitive rash. Referrals: MEGAN ANTONY [Other] - 3-5 Days IAN LEE MD [Staff Physician] - 3-5 Days FELIPE MARTINEZ MD [Staff Physician] - 3-5 Days KATELYN GARCIA MD [Staff Physician] - 3-5 Days DIANA RAMIRES MD [Staff Physician] - 3-5 Days ISELA GEORGES MD [Staff Physician] - 3-5 Days CARBUCCIA,MEGAN, MD [Staff Physician] - 3-5 Days Heart Score - HEART Score History: Slightly suspicious EKG: Non-specific Age: 45-65 Risk factors: 1-2 risk factors Troponin: < normal limit HEART Score: 3 - EKG Read Time Time EKG Completed: 13:08 EKG Read Time: 13:08 - Critical Actions Critical Actions: 0-3 pts:0.9-1.7%risk of adverse cardiac event.Candidate for discharge
[2021-04-13] MEDS ORDERED: ACETAMINOPHEN 325 MG TAB PO ONE (15:06)
[2021-04-13] MEDS ORDERED: ONDANSETRON 4 MG/2 ML INJ IV ONE (15:06)
[2021-04-13] MEDS ORDERED: KETOROLAC 30 MG/1 ML INJ IV ONE (15:06)
[2021-04-13] MEDS ORDERED: MAGNESIUM SULFATE 2 GM/50 ML BAG IV ONE (15:06)
[2021-04-13] MEDS ORDERED: IPRATROPIUM 0.02% NEBU 2.5 ML IH ONE (15:06)
[2021-04-13] MEDS ORDERED: ALBUTEROL 2.5 MG/3 ML NEBU IH ONE (15:06)
[2021-04-13] MEDS ORDERED: methylPREDNISolone Sod Succinate 125 MG/2 ML INJ IV ONE (15:06)
[2021-04-13 16:06] VITALS: BP 128/79
--- NOTE | 2021-04-17 18:28 | Electrocardiograph Report ---
[facility] Test Date: 2021-04-13 Test Time: 13:06:08 Pat Name: MICHAEL RAVI Department: Room: Gender: F Study Hall Supervisor: ALFREDA : 1960 Requested By: ALVAREZ MAYORGA Order Number: [id number] Reading MD: Hans Moon Measurements Intervals [place] Rate: 95 P: 63 RI: 129 QRS: 11 QRSD: 91 T: 54 QT: 363 QTc: 457 Interpretive Statements Sinus rhythm Compared to ECG 02/12/2021 13:43:27 No significant changes Electronically Signed On 04-17-2021 18:28:27 EDT by Hans Moon
== END 2021-04-13 18:27 | disposition home or self-care (01) ==
LOC: ED 12:45
DX: J44.1 Chronic obstructive pulmonary disease with (acute) exacerbation (principal); I10 Essential (primary) hypertension; E11.9 Type 2 diabetes mellitus without complications; F17.200 Nicotine dependence, unspecified, uncomplicated; F12.10 Cannabis abuse, uncomplicated; Z98.890 Other specified postprocedural states; Z86.73 Personal history of transient ischemic attack (TIA), and cerebral infarction without residual deficits; Z79.899 Other long term (current) drug therapy; Z21 Asymptomatic human immunodeficiency virus [HIV] infection status; Z79.84 Long term (current) use of oral hypoglycemic drugs
CPT/HCPCS: 36415; 71046; 80053; 83880; 84484; 85025; 85610; 85730; 93005; 94640; 94644; 96365; 96375; 99291; J1885; J2405; J2930; J3475

== ENCOUNTER 2021-04-19 12:37 | Emergency (ER) | payer MEDICAID ==
[2021-04-19] MEDS ORDERED: ASPIRIN 325 MG TAB PO ONE (12:57)
[2021-04-19] MEDS ORDERED: methylPREDNISolone Sod Succinate 125 MG/2 ML INJ IM ONE (12:58)
[2021-04-19] MEDS ORDERED: IPRATROPIUM/ALBUTEROL SULFATE 3 ML AMPUL.NEB IH ONE (12:58)
--- NOTE | 2021-04-19 13:06 | Emergency Department Report ---
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 She reports that for the last 2 weeks she has been having worsening cough and shortness of breath with production of copious sputum. She came to the emergency room on 614 and was diagnosed with a COPD exacerbation. She has been using all of her prescribed medications including duo nebs however, today 30 minutes prior to arrival while cooking breakfast she began to experience a sharp pain in the center of her chest that radiates to the left shoulder along with shortness of breath. She says the pain is worsened by coughing. It is not worsened by taking a deep breath along. She denies any recent fever, vision change, neck pain, back pain, abdominal pain, nausea/vomiting, new weakness, new sensory changes, or any other complaints. She is vaccinated against the novel coronavi garcia. She denies any worsening lower extremity swelling or pain. Severity scale (0 -10): 8 - Related Data Home Medications Medication Instructions Recorded Confirmed Last Taken Amitriptyline [Elavil] 100 mg PO QHS 12/13/20 12/13/20 Unknown Bimatoprost [Lumigan] 1 drop OU QHS 12/13/20 12/13/20 Unknown Bimatoprost [Lumigan] 2.5 ml OP BID 12/13/20 12/14/20 Unknown Darunavir/Cob/Emtri/Tenof Alaf 1 tab PO DAILY 12/13/20 12/13/20 Unknown [Symtuza [id number] mg Tab] Valtrex 500 mg BID 12/13/20 12/13/20 Unknown Previous Rx's Medication Instructions Recorded Last Taken Type Oxycodone HCl [Oxycodone HCl 10mg 10 mg PO Q8H PRN #3 tablet 11/27/17 Unknown Rx tab] ALPRAZolam [Xanax TAB] 0.5 mg PO BID PRN #20 12/16/20 Unknown Rx Aspirin 325 mg PO Q24HR #30 tablet 12/16/20 Unknown Rx AtorvaSTATin [Lipitor] 80 mg PO QHS #30 tablet 12/16/20 Unknown Rx Clopidogrel [Plavix] 75 mg PO QDAY #21 tablet 12/16/20 Unknown Rx Empagliflozin (Nf) [Jardiance (Nf)] 1 tab PO QAM #30 12/16/20 Unknown Rx Insulin Glargine,Hum.rec.anlog 20 unit SQ QHS 30 Days 12/16/20 Unknown Rx [Lantus Solostar] Lisinopril 20 mg PO DAILY #30 12/16/20 Unknown Rx Omeprazole 40 mg PO PRN #30 12/16/20 Unknown Rx metFORMIN [Glucophage] 500 mg PO BID #60 12/16/20 Unknown Rx Meclizine [Antivert] 25 mg PO TID PRN #20 tablet 02/12/21 Unknown Rx Acetaminophen [Non-Aspirin Extra 500 mg PO Q6HR PRN #30 tablet 04/13/21 Unknown Rx Strength] Albuterol Sulfate [Albuterol 0.63% 0.63 mg IH Q4HR PRN #2 ml 04/13/21 Unknown Rx NEBS] Albuterol Sulfate [Proair 90 mcg IH Q4HR PRN #2 aer.pow.ba 04/13/21 Unknown Rx Respiclick] Benzonatate [Tessalon Perles] 100 mg PO Q8HR PRN #30 capsule 04/13/21 Unknown Rx DOXYCYCLINE Hyclate [Vibramycin] 100 mg PO Q12HR #10 capsule 04/13/21 Unknown Rx Ipratropium (Nf) [Atrovent] 2 puff IH Q6HR PRN #1 inha 04/13/21 Unknown Rx Ipratropium [Atrovent NEB] 0.5 mg IH Q4HR #2 ml 04/13/21 Unknown Rx predniSONE [Deltasone] 40 mg PO QDAY #8 tab 04/13/21 Unknown Rx Azithromycin 500 mg PO DAILY #5 tablet 04/19/21 Unknown Rx predniSONE 10 mg PO .TAPER #40 tab 04/19/21 Unknown Rx Allergies Allergy/AdvReac Type Severity Reaction Status Date / Time tomato Allergy Itching Verified 04/19/21 13:03 Heart Score - HEART Score History: Moderately suspicious EKG: Normal Age: 45-65 Risk factors: > 3 risk factors or hx of atherosclerotic disease Troponin: < normal limit HEART Score: 4 - EKG Read Time Time EKG Completed: 12:46 EKG Read Time: 12:48 ED Review of Systems ROS: Stated complaint: CHEST PAIN Other details as noted in HPI Constitutional: denies: chills, fever Eyes: denies: eye pain, vision change ENT: denies: throat pain, congestion Respiratory: cough, shortness of breath, wheezing Cardiovascular: chest pain. denies: palpitations, syncope Gastrointestinal: denies: abdominal pain, nausea, vomiting Genitourinary: denies: dysuria, frequency Musculoskeletal: denies: arthralgia, myalgia Skin: denies: rash Neurological: headache (mild), other (chronic left sided weakness and numbness). denies: weakness, numbness ED Past Medical Hx - Past Medical History Hx Hypertension: Yes Hx CVA: Yes (L sided deficits) Hx Diabetes: Yes Hx COPD: Yes Hx HIV: Yes Additional medical history: squamous cell carcinoma, - Surgical History Additional Surgical History: skin graft, cancer removed from vulva, d&c - Social History Smoking Status: Current Every Day Smoker Substance Use Type: Marijuana - Medications Home Medications: Home Medications Medication Instructions Recorded Confirmed Last Taken Type Oxycodone HCl [Oxycodone HCl 10mg 10 mg PO Q8H PRN #3 tablet 11/27/17 12/13/20 Unknown Rx tab] Amitriptyline [Elavil] 100 mg PO QHS 12/13/20 12/13/20 Unknown History Bimatoprost [Lumigan] 1 drop OU QHS 12/13/20 12/13/20 Unknown History Bimatoprost [Lumigan] 2.5 ml OP BID 12/13/20 12/14/20 Unknown History Darunavir/Cob/Emtri/Tenof Alaf 1 tab PO DAILY 12/13/20 12/13/20 Unknown History [Symtuza [id number] mg Tab] Valtrex 500 mg BID 12/13/20 12/13/20 Unknown History ALPRAZolam [Xanax TAB] 0.5 mg PO BID PRN #20 12/16/20 Unknown Rx Aspirin 325 mg PO Q24HR #30 tablet 12/16/20 Unknown Rx AtorvaSTATin [Lipitor] 80 mg PO QHS #30 tablet 12/16/20 Unknown Rx Clopidogrel [Plavix] 75 mg PO QDAY #21 tablet 12/16/20 Unknown Rx Empagliflozin (Nf) [Jardiance (Nf)] 1 tab PO QAM #30 12/16/20 Unknown Rx Insulin Glargine,Hum.rec.anlog 20 unit SQ QHS 30 Days 12/16/20 Unknown Rx [Lantus Solostar] Lisinopril 20 mg PO DAILY #30 12/16/20 Unknown Rx Omeprazole 40 mg PO PRN #30 12/16/20 Unknown Rx metFORMIN [Glucophage] 500 mg PO BID #60 12/16/20 Unknown Rx Meclizine [Antivert] 25 mg PO TID PRN #20 tablet 02/12/21 Unknown Rx Acetaminophen [Non-Aspirin Extra 500 mg PO Q6HR PRN #30 tablet 04/13/21 Unknown Rx Strength] Albuterol Sulfate [Albuterol 0.63% 0.63 mg IH Q4HR PRN #2 ml 04/13/21 Unknown Rx NEBS] Albuterol Sulfate [Proair 90 mcg IH Q4HR PRN #2 aer.pow.ba 04/13/21 Unknown Rx Respiclick] Benzonatate [Tessalon Perles] 100 mg PO Q8HR PRN #30 capsule 04/13/21 Unknown Rx DOXYCYCLINE Hyclate [Vibramycin] 100 mg PO Q12HR #10 capsule 04/13/21 Unknown Rx Ipratropium (Nf) [Atrovent] 2 puff IH Q6HR PRN #1 inha 04/13/21 Unknown Rx Ipratropium [Atrovent NEB] 0.5 mg IH Q4HR #2 ml 04/13/21 Unknown Rx predniSONE [Deltasone] 40 mg PO QDAY #8 tab 04/13/21 Unknown Rx Azithromycin 500 mg PO DAILY #5 tablet 04/19/21 Unknown Rx predniSONE 10 mg PO .TAPER #40 tab 04/19/21 Unknown Rx ED Physical Exam - General Limitations: No Limitations - Other Other exam information: GENERAL: Well developed and well nourished. Mild distress HEENT: Normocephalic. No obvious signs of trauma. Moist mucous membranes. EYES: Extraocular movements are intact. Pupils are equal round and reactive to light bilaterally NECK: Supple. Trachea is midline. LUNGS: Tachypneic but without significant accessory muscle use. Equal chest rise bilaterally. Lung auscultation reveals scattered rhonchi, rales, and wheezes throughout the bilateral lungs HEART/CARDIOVASCULAR: Regular rate and rhythm. No murmurs or rubs. VASCULAR: 2+ peripheral pulses. Cap refill < 2 seconds ABDOMEN: Abdomen is soft and nondistended. There is no significant tenderness, guarding or rebound. SKIN: Skin is warm and dry NEURO: Patient is awake, alert, and oriented. 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 4/5 strength of LUE and LLE with decreased sensation. Otherwise normal motor and sensory exam. Normal speech. MUSCULOSKELETAL: No obvious deformities. No significant tenderness. Normal ROM throughout. . ED Course Vital Signs 04/19/21 04/19/21 04/19/21 12:56 12:59 13:13 Temperature 97.8 F Pulse Rate 71 89 Respiratory 21 Rate Blood Pressure Blood Pressure 114/79 [Left] O2 Sat by Pulse 95 100 Oximetry 04/19/21 04/19/21 04/19/21 13:15 13:31 13:45 Temperature Pulse Rate 106 H Respiratory 16 Rate Blood Pressure 102/69 Blood Pressure [Left] O2 Sat by Pulse 100 100 97 Oximetry 04/19/21 04/19/21 04/19/21 14:01 14:30 15:01 Temperature Pulse Rate 99 H 103 H 91 H Respiratory 18 21 15 Rate Blood Pressure 116/72 99/53 112/61 Blood Pressure [Left] O2 Sat by Pulse 98 98 97 Oximetry 04/19/21 04/19/21 04/19/21 15:31 16:03 17:27 Temperature Pulse Rate 94 H 96 H Respiratory 19 18 Rate Blood Pressure 95/60 93/69 Blood Pressure 111/75 [Left] O2 Sat by Pulse 95 97 98 Oximetry ELICEO score - Eliceo Score Age > 65: (0) No Aspirin use within the Past 7 Days: (0) No 3 or more CAD Risk Factors: (1) Yes 2 or more Angina events in past 24 hrs: (0) No Known CAD with more than 50% Stenosis: (0) No Elevated Cardiac Markers: (0) No ST Deviation Greater than 0.5mm: (0) No ELICEO Score: 1 ED Medical Decision Making - Lab Data Result diagrams: 04/19/21 12:57 04/19/21 13:10 Lab Results 04/19/21 04/19/21 04/19/21 Range/Units 12:57 12:57 13:10 WBC 11.1 H (4.5-11.0) K/mm3 RBC 4.14 (3.65-5.03) M/mm3 Hgb 12.4 (10.1-14.3) gm/dl Hct 38.5 (30.3-42.9) % MCV 93 (79-97) fl MCH 30 (28-32) pg MCHC 32 (30-34) % RDW 15.3 H (13.2-15.2) % Plt Count 221 (140-440) K/mm3 Lymph # (Auto) News Production Supervisor Add Manual Diff Complete Total Counted 100 Seg Neuts % (Manual) 45.0 (40.0-70.0) % Lymphocytes % (Manual) 46.0 H (13.4-35.0) % Reactive Lymphs % (Man) 3.0 % Monocytes % (Manual) 3.0 (0.0-7.3) % Eosinophils % (Manual) 3.0 (0.0-4.3) % Nucleated RBC % Not Reportable Seg Neutrophils # Man 5.0 (1.8-7.7) K/mm3 Band Neutrophils # 0.0 K/mm3 Lymphocytes # (Manual) 5.1 (1.2-5.4) K/mm3 Abs React Lymphs (Man) 0.3 K/mm3 Monocytes # (Manual) 0.3 (0.0-0.8) K/mm3 Eosinophils # (Manual) 0.3 (0.0-0.4) K/mm3 Basophils # (Manual) 0.0 (0.0-0.1) K/mm3 Metamyelocytes # 0.0 K/mm3 Myelocytes # 0.0 K/mm3 Promyelocytes # 0.0 K/mm3 Blast Cells # 0.0 K/mm3 WBC Morphology Not Reportable TNR Hypersegmented Neuts Not Reportable Hyposegmented Neuts Not Reportable Hypogranular Neuts Not Reportable Smudge Cells Not Reportable Toxic Granulation Not Reportable Toxic Vacuolation Not Reportable Dohle Bodies Not Reportable Pelger-Huet Anomaly Not Reportable Mehul Rods Not Reportable Platelet Estimate Consistent w auto Clumped Platelets Not Reportable Plt Clumps, EDTA Not Reportable Large Platelets Not Reportable Giant Platelets Few Platelet Satelliting Not Reportable Plt Morphology Comment Not Reportable RBC Morphology Not Reportable Dimorphic RBCs Not Reportable Polychromasia Not Reportable Hypochromasia Not Reportable Poikilocytosis Not Reportable Anisocytosis Not Reportable Microcytosis Not Reportable Macrocytosis Not Reportable Spherocytes Not Reportable Pappenheimer Bodies Not Reportable Sickle Cells Not Reportable Target Cells Few Tear Drop Cells Not Reportable Ovalocytes Not Reportable Stomatocytes Few Helmet Cells Not Reportable Manuel-Warm [place] Bodies Not Reportable [place] Rings Not Reportable [place] Cells Not Reportable Bite Cells Not Reportable Crenated Cell Not Reportable Elliptocytes Not Reportable Acanthocytes (Spur) Not Reportable Rouleaux Not Reportable Hemoglobin C Crystals Not Reportable Schistocytes Not Reportable Malaria parasites Not Reportable Abran Bodies Not Reportable Hem Pathologist Commnt No Sodium 146 H (137-145) mmol/L Potassium 4.9 (3.6-5.0) mmol/L Chloride 106.0 (98-107) mmol/L Carbon Dioxide 30 (22-30) mmol/L Anion Gap 15 mmol/L BUN 15 (7-17) mg/dL Creatinine 0.8 (0.6-1.2) mg/dL Estimated GFR > 60 ml/min BUN/Creatinine Ratio 19 % Glucose 89 (65-100) mg/dL POC Glucose (70-105) mg/dL Calcium 9.3 (8.4-10.2) mg/dL Magnesium (1.7-2.3) mg/dL Total Bilirubin < 0.20 (0.1-1.2) mg/dL AST 7 (5-40) units/L ALT 12 (7-56) units/L Alkaline Phosphatase 91 (35-129) units/L Troponin T < 0.010 (0.00-0.029) ng/mL NT-Pro-B Natriuret Pep (0-900) pg/mL Total Protein 6.4 (6.3-8.2) g/dL Albumin 3.8 L (3.9-5) g/dL Albumin/Globulin Ratio 1.5 % 04/19/21 04/19/21 04/19/21 Range/Units 13:10 13:34 15:50 WBC (4.5-11.0) K/mm3 RBC (3.65-5.03) M/mm3 Hgb (10.1-14.3) gm/dl Hct (30.3-42.9) % MCV (79-97) fl MCH (28-32) pg MCHC (30-34) % RDW (13.2-15.2) % Plt Count (140-440) K/mm3 Lymph # (Auto) Add Manual Diff Total Counted Seg Neuts % (Manual) (40.0-70.0) % Lymphocytes % (Manual) (13.4-35.0) % Reactive Lymphs % (Man) % Monocytes % (Manual) (0.0-7.3) % Eosinophils % (Manual) (0.0-4.3) % Nucleated RBC % Seg Neutrophils # Man (1.8-7.7) K/mm3 Band Neutrophils # K/mm3 Lymphocytes # (Manual) (1.2-5.4) K/mm3 Abs React Lymphs (Man) K/mm3 Monocytes # (Manual) (0.0-0.8) K/mm3 Eosinophils # (Manual) (0.0-0.4) K/mm3 Basophils # (Manual) (0.0-0.1) K/mm3 Metamyelocytes # K/mm3 Myelocytes # K/mm3 Promyelocytes # K/mm3 Blast Cells # K/mm3 WBC Morphology Hypersegmented Neuts Hyposegmented Neuts Hypogranular Neuts Smudge Cells Toxic Granulation Toxic Vacuolation Dohle Bodies Pelger-Huet Anomaly Mehul Rods Platelet Estimate Clumped Platelets Plt Clumps, EDTA Large Platelets Giant Platelets Platelet Satelliting Plt Morphology Comment RBC Morphology Dimorphic RBCs Polychromasia Hypochromasia Poikilocytosis Anisocytosis Microcytosis Macrocytosis Spherocytes Pappenheimer Bodies Sickle Cells Target Cells Tear Drop Cells Ovalocytes Stomatocytes Helmet Cells Manuel-Warm [place] Bodies [place] Rings Jonathon Cells Bite Cells Crenated Cell Elliptocytes Acanthocytes (Spur) Rouleaux Hemoglobin C Crystals Schistocytes Malaria parasites Abran Bodies Hem Pathologist Commnt Sodium (137-145) mmol/L Potassium (3.6-5.0) mmol/L Chloride (98-107) mmol/L Carbon Dioxide (22-30) mmol/L Anion Gap mmol/L BUN (7-17) mg/dL Creatinine (0.6-1.2) mg/dL Estimated GFR ml/min BUN/Creatinine Ratio % Glucose (65-100) mg/dL POC Glucose 90 (70-105) mg/dL Calcium (8.4-10.2) mg/dL Magnesium 2.10 (1.7-2.3) mg/dL Total Bilirubin (0.1-1.2) mg/dL AST (5-40) units/L ALT (7-56) units/L Alkaline Phosphatase (35-129) units/L Troponin T < 0.010 (0.00-0.029) ng/mL NT-Pro-B Natriuret Pep 11.54 (0-900) pg/mL Total Protein (6.3-8.2) g/dL Albumin (3.9-5) g/dL Albumin/Globulin Ratio % - EKG Data -: EKG Interpreted by Me - EKG Data 04/19/21 14:05 Normal sinus rhythm. Normal axis. Normal intervals. No ectopy. No significant ST segment or T wave abnormalities. - Radiology Data XR chest 1V ap INDICATION / CLINICAL INFORMATION: Chest Pain. COMPARISON: 04/13/2021 FINDINGS: SUPPORT DEVICES: None. HEART /PULMONARY VASCULATURE: No significant abnormality. LUNGS / PLEURA: No significant pulmonary or pleural abnormality. No pneumothorax. ADDITIONAL FINDINGS: No significant additional findings. IMPRESSION: 1. No acute findings. Signer Name: Horacio Huerta MD Signed: 04/19/2021 12:42 PM Workstation Name: [id number] - Medical Decision Making 60-year-old female with complex medical history including history of stroke with left-sided deficits, HIV on antiretroviral therapy, diabetes mellitus, and COPD presenting with 30 minutes of mid substernal chest pain which started while cooking breakfast. Of note, the patient was recently diagnosed with COPD exacerbation and she was on prednisone until yesterday when she finished with prescription. She reports chest pain that is sharp and radiating to the left shoulder with associated shortness of breath. She has had a cough for 2 weeks. She is vaccinated against the coronavirus. Initial assessment she is afebrile and with normal vital signs. Lung auscultation reveals scattered wheezes, rhonchi, and rales throughout the bilateral lungs. However, the patient's oxygen saturation is normal. I suspect that the patient's chest pain is related to her COPD exacerbation especially in the light of her finishing her prednisone. Nonetheless we will perform full work-up with labs, EKG, and chest x-ray. We will give 125 mg of Solu-Medrol and give duo nebs x3 and then reassess. We will also give aspirin 325 mg. EKG shows no ischemic changes or other acute abnormalities. On repeat assessment at 1:26 PM, the patient reports that her chest pain has resolved after the breathing treatments. Lung auscultation now reveals clear lung martin bilaterally. Although she does still have cough and every time she coughs she feels pain in her back which she says she has been having for the past 2 weeks since she developed the cough due to soreness from coughing so much. Chest x-ray reveals no acute abnormalities and no evidence of pneumonia. The fact that her chest pain resolved after breathing treatment suggests that it is related to her COPD, nonetheless we will follow up after labs including the troponin x 2. On repeat assessment at 330 patient reports that she remains chest pain-free. Vital signs are stable. We will follow up repeat troponin Repeat troponin opponent is negative. At 5:59 PM, the patient remains chest pain-free. She will be discharged home with prescription for azithromycin 500 mg p.o. daily x5 days a steroid taper and instructions to continue duo nebs every 4 hours as needed for wheezing Critical care attestation.: If time is entered above; I have spent that time in minutes in the direct care of this critically ill patient, excluding procedure time. ED Disposition Clinical Impression: COPD exacerbation, Hypernatremia Disposition: DC- TO HOME OR SELFCARE Is pt being admited?: No Condition: Stable Instructions: Chronic Obstructive Pulmonary Disease, Asthma, Adult, [id number], Chronic Obstructive Pulmonary Disease (ED) Additional Instructions: You have been prescribed a steroid taper. Your labs show that you have hypernatremia which is elevated sodium in your blood. Please follow-up with your doctor in the next 2 to 3 days for recheck of your labs. Use your nebulized breathing treatments every 4 hours for the next 3 days. Take the antibiotic prescription and steroid taper as prescribed. Return to the emergency department should you develop worsening chest pain or any other new concerning symptoms. Prescriptions: Azithromycin 500 mg PO DAILY #5 tablet predniSONE 10 mg PO .TAPER #40 tab Referrals: DEMETRIA CRUM MD [Staff Physician] - 3-5 Days
--- NOTE | 2021-04-19 13:47 | XRay Report ---
XR chest 1V ap INDICATION / CLINICAL INFORMATION: Chest Pain. COMPARISON: 04/13/2021 FINDINGS: SUPPORT DEVICES: None. HEART /PULMONARY VASCULATURE: No significant abnormality. LUNGS / PLEURA: No significant pulmonary or pleural abnormality. No pneumothorax. ADDITIONAL FINDINGS: No significant additional findings. IMPRESSION: 1. No acute findings. Signer Name: Horacio Huerta MD Signed: 04/19/2021 1:42 PM Workstation Name: [id number]
[2021-04-19 13:55] LABS: Hematocrit 38.5 % (30.3-42.9); Hemoglobin 12.4 gm/dl (10.1-14.3); Mean Corpuscular HGB Conc 32 % (30-34); Mean Corpuscular Volume 93 fl (79-97); Platelet Count 221 K/mm3 (140-440); Red Blood Count 4.14 M/mm3 (3.65-5.03); Red Cell Distribution Width 15.3 % (13.2-15.2)
[2021-04-19] MEDS ORDERED: MORPHINE 2 MG/1 ML INJ IM ONE (13:56)
[2021-04-19 14:08] LABS: Alanine Aminotransferase 12 units/L (7-56); Albumin 3.8 g/dL (3.9-5); BUN/Creatinine Ratio 19; Blood Urea Nitrogen 15 mg/dL (7-17); Calcium 9.3 mg/dL (8.4-10.2); Hemolysis Index 78
[2021-04-19 14:46] LABS: Total Cells Counted 100
[2021-04-19 14:47] LABS: Giant Platelets Few; Platelet Estimate Consistent w Auto; Stomatocytes Few; Target Cells Few
[2021-04-19 17:32] VITALS: BP 111/75
--- NOTE | 2021-04-23 09:40 | Electrocardiograph Report ---
[facility] Test Date: 2021-04-19 Test Time: 12:46:52 Pat Name: MICHAEL RAVI Department: Room: Gender: F Instructional Coordinator: ANAMIKA : 1960 Requested By: FLO GONSALVES Order Number: [id number] Reading MD: Humberto Kong Measurements Intervals [place] Rate: 90 P: 65 NH: 127 QRS: 17 QRSD: 89 T: 44 QT: 376 QTc: 461 Interpretive Statements Sinus rhythm Ventricular premature complex Compared to ECG 04/13/2021 13:06:08 Ventricular premature complex(es) now present Electronically Signed On 04-23-2021 9:40:41 EDT by Humberto Kong
== END 2021-04-19 18:33 | disposition home or self-care (01) ==
LOC: ED 12:37
DX: J44.1 Chronic obstructive pulmonary disease with (acute) exacerbation (principal); E87.0 Hyperosmolality and hypernatremia; I10 Essential (primary) hypertension; E11.9 Type 2 diabetes mellitus without complications; F17.200 Nicotine dependence, unspecified, uncomplicated; F12.90 Cannabis use, unspecified, uncomplicated; Z21 Asymptomatic human immunodeficiency virus [HIV] infection status; Z98.890 Other specified postprocedural states; Z86.73 Personal history of transient ischemic attack (TIA), and cerebral infarction without residual deficits; Z91.018 Allergy to other foods; Z79.899 Other long term (current) drug therapy
CPT/HCPCS: 36415; 71045; 80053; 82962; 83735; 83880; 84484; 85007; 85025; 93005; 96372; 99284; J2270; J2930

== ENCOUNTER 2021-05-02 15:34 | Emergency (ER) | payer MEDICAID ==
[2021-05-02 16:45] VITALS: BP 97/74
== END 2021-05-02 16:45 | disposition left against medical advice (07) ==
LOC: ED 15:34
DX: R51.9 Headache, unspecified (principal); Z53.21 Procedure and treatment not carried out due to patient leaving prior to being seen by health care provider
CPT/HCPCS: 82962

== ENCOUNTER 2021-11-04 10:51 | Observation (INO) | payer MEDICAID ==
[2021-11-04 11:19] VITALS: BP 133/84
[2021-11-04] MEDS ORDERED: HYDROcodone/ACETAMINOPHEN 5-325 MG TAB PO ONE (13:54)
--- NOTE | 2021-11-04 14:01 | Emergency Department Report ---
HPI - General Chief Complaint: Upper Respiratory Infection Time Seen by Provider: 11/04/21 13:32 - HPI HPI: MSE 5 The patient is a 61-year-old female present with a chief complaint of headache and right-sided numbness. Patient states for the past week she has had intermittent numbness of her right side. Patient states for the past 3 days she has had a headache with diffuse body aches. Patient states she has noticed she has been coughing more than normal for the past 2 to 3 days. Patient states her cough is productive of yellow sputum. Patient denies history of fever. Patient states she has received all 3 of her recommended vaccinations against Covid receiving her third dose September 17, 2021. 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 The patient states this presentation on the right side feels the same as her first stroke ED Past Medical Hx - Past Medical History Hx Hypertension: Yes Hx CVA: Yes (L sided deficits) Hx Diabetes: Yes Hx COPD: Yes Hx HIV: Yes Additional medical history: squamous cell carcinoma left middle finger, - Surgical History Additional Surgical History: skin graft, cancer removed from vulva, d&c - Family History Family history: no significant - Social History Smoking Status: Current Every Day Smoker (1/2 pack/day) Substance Use Type: Alcohol (Occasional), Marijuana - Medications Home Medications: Home Medications Medication Instructions Recorded Confirmed Last Taken Type Oxycodone HCl [Oxycodone HCl 10mg 10 mg PO Q8H PRN #3 tablet 11/27/17 12/13/20 Unknown Rx tab] Amitriptyline [Elavil] 100 mg PO QHS 12/13/20 12/13/20 Unknown History Bimatoprost [Lumigan] 1 drop OU QHS 12/13/20 12/13/20 Unknown History Bimatoprost [Lumigan] 2.5 ml OP BID 12/13/20 12/14/20 Unknown History Darunavir/Cob/Emtri/Tenof Alaf 1 tab PO DAILY 12/13/20 12/13/20 Unknown History [Symtuza [id number] mg Tab] Valtrex 500 mg BID 12/13/20 12/13/20 Unknown History ALPRAZolam [Xanax TAB] 0.5 mg PO BID PRN #20 12/16/20 Unknown Rx Aspirin 325 mg PO Q24HR #30 tablet 12/16/20 Unknown Rx AtorvaSTATin [Lipitor] 80 mg PO QHS #30 tablet 12/16/20 Unknown Rx Clopidogrel [Plavix] 75 mg PO QDAY #21 tablet 12/16/20 Unknown Rx Empagliflozin (Nf) [Jardiance (Nf)] 1 tab PO QAM #30 12/16/20 Unknown Rx Insulin Glargine,Hum.rec.anlog 20 unit SQ QHS 30 Days 12/16/20 Unknown Rx [Lantus Solostar] Lisinopril 20 mg PO DAILY #30 12/16/20 Unknown Rx Omeprazole 40 mg PO PRN #30 12/16/20 Unknown Rx metFORMIN [Glucophage] 500 mg PO BID #60 12/16/20 Unknown Rx Meclizine [Antivert] 25 mg PO TID PRN #20 tablet 02/12/21 Unknown Rx Acetaminophen [Non-Aspirin Extra 500 mg PO Q6HR PRN #30 tablet 04/13/21 Unknown Rx Strength] Albuterol Sulfate [Albuterol 0.63% 0.63 mg IH Q4HR PRN #2 ml 04/13/21 Unknown Rx NEBS] Albuterol Sulfate [Proair 90 mcg IH Q4HR PRN #2 aer.pow.ba 04/13/21 Unknown Rx Respiclick] Benzonatate [Tessalon Perles] 100 mg PO Q8HR PRN #30 capsule 04/13/21 Unknown Rx DOXYCYCLINE Hyclate [Vibramycin] 100 mg PO Q12HR #10 capsule 04/13/21 Unknown Rx Ipratropium (Nf) [Atrovent] 2 puff IH Q6HR PRN #1 inha 04/13/21 Unknown Rx Ipratropium [Atrovent NEB] 0.5 mg IH Q4HR #2 ml 04/13/21 Unknown Rx predniSONE [Deltasone] 40 mg PO QDAY #8 tab 04/13/21 Unknown Rx Azithromycin 500 mg PO DAILY #5 tablet 04/19/21 Unknown Rx predniSONE 10 mg PO .TAPER #40 tab 04/19/21 Unknown Rx ED Review of Systems ROS: Stated complaint: R SIDE NUMBNESS, HEADACHR, CHILLS, SOB Other details as noted in HPI Constitutional: denies: fever Eyes: denies: eye pain ENT: denies: throat pain Respiratory: cough Cardiovascular: denies: chest pain Endocrine: no symptoms reported Gastrointestinal: denies: abdominal pain Genitourinary: denies: dysuria Musculoskeletal: denies: back pain Neurological: headache, paresthesias Physical Exam - Physical Exam Vital Signs: Vital Signs 11/04/21 11/04/21 11:15 11:18 Temperature 98.8 F Pulse Rate 68 Respiratory 16 Rate Blood Pressure 133/84 O2 Sat by Pulse 95 Oximetry Physical Exam: GENERAL: The patient is well-developed well-nourished female lying on stretcher not appearing to be in acute distress. [] HEENT: Normocephalic. Atraumatic. Extraocular motions are intact. Patient has moist mucous membranes. NECK: Supple. Trachea midline CHEST/LUNGS: Clear to auscultation. There is no respiratory distress noted. HEART/CARDIOVASCULAR: Regular. There is no tachycardia. There is no gallop rub or murmur. ABDOMEN: Abdomen is soft, nontender. Patient has normal bowel sounds. There is no abdominal distention. SKIN: There is no rash. There is no edema. There is no diaphoresis. NEURO: The patient is awake, alert, and oriented. The patient is cooperative. The patient has decreased sensation to light touch in the right face (V1, V2, V3), right upper extremity and right lower extremity patient is able to hold either upper extremity at 45 degree angle for 10-second count without drift. Patient is able to hold left upper extremity at 30 degree angle without drift for 5-second count however the right leg drifts before 5-second count but does not go completely to the bed. NIHSS= 2. The patient has normal speech and gait. MUSCULOSKELETAL: There is no evidence of acute injury. ED Course Vital Signs 11/04/21 11/04/21 11:15 11:18 Temperature 98.8 F Pulse Rate 68 Respiratory 16 Rate Blood Pressure 133/84 O2 Sat by Pulse 95 Oximetry ED Medical Decision Making - Lab Data Result diagrams: 11/04/21 14:24 11/04/21 14:24 Laboratory Tests 11/04/21 11/04/21 11/04/21 14:24 14:24 14:24 WBC 10.7 RBC 4.60 Hgb 13.9 Hct 42.7 MCV 93 MCH 30 MCHC 33 RDW 14.8 Plt Count 201 Lymph % (Auto) 29.3 [place] % (Auto) 6.6 Eos % (Auto) 3.0 Baso % (Auto) 0.9 Lymph # (Auto) 3.1 [place] # (Auto) 0.7 Eos # (Auto) 0.3 Baso # (Auto) 0.1 Seg Neutrophils % 60.2 Seg Neutrophils # 6.4 PT 13.6 INR 0.94 APTT 30.9 Sodium 139 Potassium 4.3 Chloride 100.6 Carbon Dioxide 22 Anion Gap 21 BUN 8 Creatinine 0.6 Estimated GFR > 60 BUN/Creatinine Ratio 13 Glucose 181 H POC Glucose Calcium 9.3 11/04/21 15:29 WBC RBC Hgb Hct MCV MCH MCHC RDW Plt Count Lymph % (Auto) [place] % (Auto) Eos % (Auto) Baso % (Auto) Lymph # (Auto) [place] # (Auto) Eos # (Auto) Baso # (Auto) Seg Neutrophils % Seg Neutrophils # PT INR APTT Sodium Potassium Chloride Carbon Dioxide Anion Gap BUN Creatinine Estimated GFR BUN/Creatinine Ratio Glucose POC Glucose 179 H Calcium - Radiology Data Radiology results: pending (CT head), report reviewed (Chest x-ray), image reviewed (Chest x-ray) interpreted by me: Chest x-ray-no definite focal infiltrates, no pneumothorax [facility] [address] [place] [address] XRay Report Signed Patient: MICHAEL RAVI MR#: [id number] : 1960 Acct:[id number] Age/Sex: 61 / F ADM Date: 11/04/21 Loc: ED Attending Dr: Ordering Physician: BENEDICT BOTELLO MD Date of Service: 11/04/21 Procedure(s): XR chest 1V ap Accession Number(s): [id number] cc: BENEDICT BOTELLO MD Fluoro Time In Minutes: CHEST 1 VIEW 11/04/2021 2:55 PM INDICATION / CLINICAL INFORMATION: Cough. COMPARISON: oh FINDINGS: SUPPORT DEVICES: None. HEART / MEDIASTINUM: No significant abnormality. LUNGS / PLEURA: No significant pulmonary or pleural abnormality. No pneumothorax. ADDITIONAL FINDINGS: No significant additional findings. IMPRESSION: 1. No acute findings. Signer Name: Tunde Holly MD Signed: 11/04/2021 3:14 PM Workstation Name: [email or web address] Transcribed By: SS Dictated By: Tunde Holyl MD Electronically Authenticated By: Tunde Holly MD Signed Date/Time: 11/04/211513 DD/ 11 TD/TT: Print Cancel - Differential Diagnosis CVA, bronchitis, COPD exacerbation, COVID-19 Critical care attestation.: If time is entered above; I have spent that time in minutes in the direct care of this critically ill patient, excluding procedure time. ED Disposition Clinical Impression: CVA (cerebral vascular accident) Disposition: ADMITTED INPATIENT Is pt being admited?: Yes Condition: Stable Referrals: PRIMARY CARE, [Primary Care Provider] - 3-5 Days Time of Disposition: 15:40 (Hospitalist called (Dr. Valera))
[2021-11-04 14:40] LABS: Basophils # (Auto) 0.1 K/mm3 (0.0-0.1); Basophils % (Auto) 0.9 % (0.0-1.8); Eosinophils # (Auto) 0.3 K/mm3 (0.0-0.4); Hematocrit 42.7 % (30.3-42.9); Hemoglobin 13.9 gm/dl (10.1-14.3); Lymphocytes # (Auto) 3.1 K/mm3 (1.2-5.4); Lymphocytes % (Auto) 29.3 % (13.4-35.0); Mean Corpuscular HGB Conc 33 % (30-34); Mean Corpuscular Volume 93 fl (79-97); Monocytes # (Auto) 0.7 K/mm3 (0.0-0.8); Monocytes % (Auto) 6.6 % (0.0-7.3); Platelet Count 201 K/mm3 (140-440); Red Cell Distribution Width 14.8 % (13.2-15.2)
[2021-11-04 14:51] LABS: INR 0.94 (0.87-1.13)
[2021-11-04 14:52] LABS: Partial Thromboplastin Time 30.9 Sec. (24.2-36.6)
[2021-11-04 15:08] LABS: Blood Urea Nitrogen 8 mg/dL (7-17); Calcium 9.3 mg/dL (8.4-10.2); Hemolysis Index 57
--- NOTE | 2021-11-04 15:18 | XRay Report ---
CHEST 1 VIEW 11/04/2021 2:55 PM INDICATION / CLINICAL INFORMATION: Cough. COMPARISON: oh FINDINGS: SUPPORT DEVICES: None. HEART / MEDIASTINUM: No significant abnormality. LUNGS / PLEURA: No significant pulmonary or pleural abnormality. No pneumothorax. ADDITIONAL FINDINGS: No significant additional findings. IMPRESSION: 1. No acute findings. Signer Name: Tunde Holly MD Signed: 11/04/2021 3:14 PM Workstation Name: [email or web address] [id number]
[2021-11-04 15:19] LABS: BUN/Creatinine Ratio 13
--- NOTE | 2021-11-04 15:33 | History and Physical Report ---
History of Present Illness Chief complaint: My right side feels numb History of present illness: 61 YO Female with CVA with LHP on on DAPT, Vertigo, Skin Cancer, Obesity Hypoventilation Syndrome, DM, COPD, Metabolic Syndrome, HIV on Antiretroviral Therapy, HLD presents to ED for evaluation. Patient reports "my right foot side feels numb". Patient states that she has experienced intermittent right arm and leg numbness over the past 1 week with intermittent symptoms over the same timeframe. Patient transported to [facility] via private vehicle for further care and evaluation of the aforementioned symptoms. The patient was seen and evaluated in the emergency department. All lab and imaging studies reviewed. Patient found to have clinical symptoms consistent with CVA. Patient placed in observation status and initiated on CVA protocol. Patient denies fever, chills, chest pain, palpitation productive cough, skin rash, recent contact, known exposure to COVID-19. Patient is fully vaccinated against COVID-19. Prior admission on 12/16/2020 reviewed. All medication listed at time of admission has been reconciled. Advanced care planning conducted in ED. Past History Past Medical History: cancer, COPD, diabetes, HIV/AIDS, hyperlipidemia, stroke Past Surgical History: Other (Skin graft) Social history: single, smoking. denies: alcohol abuse, prescription drug abuse Family history: diabetes, hypertension Medications and Allergies Allergies Allergy/AdvReac Type Severity Reaction Status Date / Time tomato Allergy Itching Verified 04/19/21 13:03 Home Medications Medication Instructions Recorded Confirmed Last Taken Type Oxycodone HCl [Oxycodone HCl 10mg 10 mg PO Q8H PRN #3 tablet 11/27/17 12/13/20 Unknown Rx tab] Amitriptyline [Elavil] 100 mg PO QHS 12/13/20 12/13/20 Unknown History Bimatoprost [Lumigan] 1 drop OU QHS 12/13/20 12/13/20 Unknown History Bimatoprost [Lumigan] 2.5 ml OP BID 12/13/20 12/14/20 Unknown History Darunavir/Cob/Emtri/Tenof Alaf 1 tab PO DAILY 12/13/20 12/13/20 Unknown History [Symtuza [id number] mg Tab] Valtrex 500 mg BID 12/13/20 12/13/20 Unknown History ALPRAZolam [Xanax TAB] 0.5 mg PO BID PRN #20 12/16/20 Unknown Rx Aspirin 325 mg PO Q24HR #30 tablet 12/16/20 Unknown Rx AtorvaSTATin [Lipitor] 80 mg PO QHS #30 tablet 12/16/20 Unknown Rx Clopidogrel [Plavix] 75 mg PO QDAY #21 tablet 12/16/20 Unknown Rx Empagliflozin (Nf) [Jardiance (Nf)] 1 tab PO QAM #30 12/16/20 Unknown Rx Insulin Glargine,Hum.rec.anlog 20 unit SQ QHS 30 Days 12/16/20 Unknown Rx [Lantus Solostar] Lisinopril 20 mg PO DAILY #30 12/16/20 Unknown Rx Omeprazole 40 mg PO PRN #30 12/16/20 Unknown Rx metFORMIN [Glucophage] 500 mg PO BID #60 12/16/20 Unknown Rx Meclizine [Antivert] 25 mg PO TID PRN #20 tablet 02/12/21 Unknown Rx Acetaminophen [Non-Aspirin Extra 500 mg PO Q6HR PRN #30 tablet 04/13/21 Unknown Rx Strength] Albuterol Sulfate [Albuterol 0.63% 0.63 mg IH Q4HR PRN #2 ml 04/13/21 Unknown Rx NEBS] Albuterol Sulfate [Proair 90 mcg IH Q4HR PRN #2 aer.pow.ba 04/13/21 Unknown Rx Respiclick] Benzonatate [Tessalon Perles] 100 mg PO Q8HR PRN #30 capsule 04/13/21 Unknown Rx DOXYCYCLINE Hyclate [Vibramycin] 100 mg PO Q12HR #10 capsule 04/13/21 Unknown Rx Ipratropium (Nf) [Atrovent] 2 puff IH Q6HR PRN #1 inha 04/13/21 Unknown Rx Ipratropium [Atrovent NEB] 0.5 mg IH Q4HR #2 ml 04/13/21 Unknown Rx predniSONE [Deltasone] 40 mg PO QDAY #8 tab 04/13/21 Unknown Rx Azithromycin 500 mg PO DAILY #5 tablet 04/19/21 Unknown Rx predniSONE 10 mg PO .TAPER #40 tab 04/19/21 Unknown Rx Review of Systems Constitutional: no weight loss, no weight gain, no chills, no sweats Ears, nose, mouth and throat: no ear pain, no tinnitis, no decreased hearing, no nasal congestion Breasts: no change in shape, no swelling, no mass Cardiovascular: no chest pain, no orthopnea, no rapid/irregular heart beat, no syncope Respiratory: no cough, no cough with sputum, no hemoptysis, no shortness of breath Gastrointestinal: no abdominal pain, no vomiting, no diarrhea, no change in bowel habits Genitourinary Female: no pelvic pain, no flank pain, no dysuria, no urinary frequency, no urgency Rectal: no pain, no incontinence, no bleeding Musculoskeletal: no neck stiffness, no neck pain, no arm numbness/tingling, no low back pain Integumentary: no rash, no wounds, no jaundice, no boils Neurological: weakness, gait dysfunction, motor disturbance Psychiatric: no anxiety, no change in sleep habits, no insomnia, no hypersomnia Endocrine: no cold intolerance, no polyphagia, no polydipsia, no excessive sweating Hematologic/Lymphatic: no easy bruising, no lymphadenopathy Allergic/Immunologic: no urticaria, no allergic rhinitis, no wheezing, no anaphylaxis Exam - Constitutional Vitals: Temp Pulse Resp BP Pulse Ox 98.8 F 68 16 133/84 95 11/04/21 11:15 11/04/21 11:18 11/04/21 11:15 11/04/21 11:15 11/04/21 11:15 General appearance: Present: mild distress, obese Results - Labs CBC & Chem 7: 11/04/21 14:24 11/04/21 14:24 Labs: Abnormal lab results 11/04/21 11/04/21 Range/Units 14:24 15:29 Glucose 181 H (65-100) mg/dL POC Glucose 179 H (70-105) mg/dL Assessment and Plan - Patient Problems (1) CVA (cerebral vascular accident) Status: Acute Plan to address problem: CVA protocol: CT head, physical therapy consulted, Occupational Therapy consulted, speech therapy consulted, echocardiogram ordered and pending at time of admission, carotid Doppler, dual antiplatelet therapy, neuro check, seizure precautions, lipid panel, statin therapy (2) Obesity hypoventilation syndrome Status: Acute Plan to address problem: Balanced diet, increase physical activity discharge, outpatient pulmonary fol low-up for sleep study. (3) COPD (chronic obstructive pulmonary disease) Status: Acute Plan to address problem: Supplemental oxygen, pulse oximetry, no COPD exacerbation at this time. (4) Diabetes 1.5, managed as type 2 Status: Acute Plan to address problem: Slight scale insulin therapy, Accu-Chek, consistent carbohydrate diet, hypoglycemia protocol, Accu-Chek, insulin protocol. (5) DVT prophylaxis Status: Acute Plan to address problem: SCD to bilateral lower extremities while in bed, patient is ambulatory (6) Advance care planning Status: Acute Plan to address problem: Disease education conducted, care plan discussed, diagnoses discussed, prognosis discussed, patient is full code. Patient acknowledges understanding and agreement with care plan, +30 minutes. (7) Nicotine dependence Status: Acute Qualifiers: Nicotine product type: cigarettes Substance use status: in withdrawal Qualified Code(s): F17.213 - Nicotine dependence, cigarettes, with withdrawal Plan to address problem: Smoke cessation counseling, supportive care, behavior change counseling, +15 minutes.
[2021-11-04] MEDS ORDERED: ONDANSETRON 4 MG/2 ML INJ IV PRN (15:35)
[2021-11-04] MEDS ORDERED: HYDROmorphone 1 MG/1 ML INJ IV PRN (15:35)
[2021-11-04] MEDS ORDERED: ACETAMINOPHEN 325 MG TAB PO PRN (15:35)
[2021-11-04] MEDS ORDERED: oxyCODONE /ACETAMINOPHEN 5-325MG TAB PO PRN (15:35)
[2021-11-04] MEDS ORDERED: PROMETHAZINE 25 MG RECT SUPP PR PRN (15:35)
[2021-11-04] MEDS ORDERED: METOCLOPRAMIDE 10 MG TAB PO PRN (15:35)
[2021-11-04] MEDS ORDERED: MAGNESIUM HYDROXIDE (MOM) ORAL LIQD UDC PO PRN (15:35)
[2021-11-04] MEDS ORDERED: MECLIZINE 25 MG TAB PO PRN (15:38)
[2021-11-04] MEDS ORDERED: ACETAMINOPHEN 500 MG TAB PO PRN (15:38)
[2021-11-04] MEDS ORDERED: BENZONATATE 100 MG CAP PO PRN (15:38)
[2021-11-04] MEDS ORDERED: ALPRAZolam 0.5 MG TAB PO PRN (15:38)
[2021-11-04] MEDS ORDERED: NON-FORMULARY EACH (Omeprazole [Omeprazole] 40 MG Capsule.Dr) PO SCH (15:45)
--- NOTE | 2021-11-04 16:06 | Cat Scan Report ---
CT BRAIN: 11/04/2021 INDICATION / CLINICAL INFORMATION: Right-sided numbness. COMPARISON: CT brain 02/12/2021 FINDINGS: BRAIN/INTRACRANIAL STRUCTURES: Unenhanced CT images of the brain were obtained and compared to prior exams from 02/12/2021. There is been no change. There is no evidence of acute abnormality. Ventricles and sulci are normal in size and shape. There is no evidence of hemorrhage or mass. There are no abnormal extra-axial fluid collections. EXTRACRANIAL STRUCTURES: Unremarkable. IMPRESSION: No acute abnormality. No change when compared to the prior exam. All CT scans at this location are performed using dose reduction to ALARA by means of automated expos ure control. Signer Name: Cesario Bray MD Signed: 11/04/2021 4:02 PM Workstation Name: [id number]
--- NOTE | 2021-11-04 16:43 | Vascular Lab Report ---
DUPLEX DOPPLER ULTRASOUND CAROTID, BILATERAL INDICATION / CLINICAL INFORMATION: stroke. COMPARISON: None available. FINDINGS: RIGHT CAROTID: - PLAQUE ESTIMATE (%): < 50% - CCA velocity: 80 cm/sec. - ICA peak systolic velocity: 87 cm/sec. - ICA/CCA PSV Ratio: 1.1 Right Vertebral Artery: Antegrade flow. LEFT CAROTID: - PLAQUE ESTIMATE (%): < 50% - CCA velocity: 104 cm/sec. - ICA peak systolic velocity: 98 cm/sec. - ICA/CCA PSV Ratio: 0.9 Left Vertebral Artery: Antegrade flow. IMPRESSION: 1. Right Internal Carotid Artery: Less than 50% diameter stenosis. 2. Left Internal Carotid Artery: Less than 50% diameter stenosis. Velocity criteria are extrapolated from diameter data as defined by the Society of Radiologists in Ul trasound Consensus Conference, Radiology 2003; 229;340-346. NO STENOSIS (NORMAL) - Plaque = none; ICA PSV < 125 cm/sec; ICA/CCA PSV Ratio < 2.0 <50% STENOSIS - Plaque < 50%; ICA PSV < 125 cm/sec; ICA/CCA PSV Ratio < 2.0 50-69% STENOSIS - Plaque > 50%; ICA PSV = 125-230 cm/sec; ICA/CCA PSV Ratio = 2.0-4.0 >70% BUT <100% STENOSIS - Plaque > 50%; ICA PSV > 230 cm/sec; ICA/CCA PSV Ratio > 4.0 NEAR OCCLUSION - Plaque = visible lumen; ICA PSV = high/low/none; ICA/CCA PSV Ratio = variable TOTAL OCCLUSION - Plaque = no lumen; ICA PSV = none; ICA/CCA PSV Ratio = N/A Signer Name: Tunde Holly MD Signed: 11/04/2021 4:39 PM Workstation Name: [email or web address] [id number]
[2021-11-04] MEDS ORDERED: AMITRIPTYLINE 25 MG TAB PO SCH (22:00)
[2021-11-04] MEDS ORDERED: VALTREX 500 MG PO SCH (22:00)
[2021-11-04] MEDS ORDERED: valACYclovir 500 MG TAB PO SCH (22:00)
[2021-11-04] MEDS ORDERED: AMITRIPTYLINE 100 MG PO SCH (22:00)
[2021-11-05] MEDS ORDERED: NON-FORMULARY EACH (Lisinopril 20 MG) PO SCH (10:00)
[2021-11-05] MEDS ORDERED: CLOPIDOGREL 75 MG TAB PO SCH (10:00)
[2021-11-05] MEDS ORDERED: LISINOPRIL 20 MG TAB PO SCH (10:00)
[2021-11-05] MEDS ORDERED: PANTOPRAZOLE 40 MG TAB PO SCH (10:00)
[2021-11-05] MEDS ORDERED: ASPIRIN 325 MG TAB PO SCH (10:00)
--- NOTE | 2021-11-05 10:02 | Discharge Summary ---
Providers - Providers Date of Admission: 11/04/21 15:35 Attending physician: LEONIE AG 11/04/21 15:35 Occupational Therapy Evaluate and Treat [CONS] Routine Comment: Reason For Exam: Neuro deficits Physical Therapy Evaluation and Treat [CONS] Routine Comment: Reason For Exam: Neuro deficits 11/04/21 15:37 Speech Therapy Evaluation and Treat [CONS] Routine Reason For Exam: swallow eval Primary care physician: MANAGER [facility] Hospitalization Condition: Stable Hospital course: 61 YO Female with CVA with LHP on on DAPT, Vertigo, Skin Cancer, Obesity Hypoventilation Syndrome, DM, COPD, Metabolic Syndrome, HIV on Antiretroviral Therapy, HLD presented to ED for evaluation. Patient reported "my right foot side feels numb". Patient stated that she had experienced intermittent right arm and leg numbness over the past 1 week with intermittent symptoms over the same timeframe. Patient transported to [facility] via private vehicle for further care and evaluation of the aforementioned symptoms. The patient was seen and evaluated in the emergency department. All lab and imaging studies reviewed. Patient found to have clinical symptoms consistent with CVA. Patient placed in observation status and initiated on CVA protocol. Patient denies fever, chills, chest pain, palpitation productive cough, skin rash, recent contact, known exposure to COVID-19. Patient is fully vaccinated against COVID-19. Prior admission on 12/16/2020 reviewed. All medication listed at time of admission has been reconciled. Patient left AMA prior to completion of work-up. Patient counseled regarding increased risk of worsening symptoms and premature without further testing and evaluation. Patient acknowledged understanding instructions. Disposition: 07 LEFT AGAINST MEDICAL ADVICE Final Discharge Diagnosis (Prints w/discharge instructions): CVA: Patient left AMA prior to completion of work-up. - Discharge Diagnoses (1) CVA (cerebral vascular accident) Status: Acute (2) Obesity hypoventilation syndrome Status: Acute (3) COPD (chronic obstructive pulmonary disease) Status: Acute (4) Diabetes 1.5, managed as type 2 Status: Acute (5) DVT prophylaxis Status: Acute (6) Advance care planning Status: Acute (7) Nicotine dependence Status: Acute Qualifiers: Nicotine product type: cigarettes Substance use status: in withdrawal Qualified Code(s): F17.213 - Nicotine dependence, cigarettes, with withdrawal Core Measure Documentation - Palliative Care Palliative Care/ Comfort Measures: Not Applicable - Core Measures Any of the following diagnoses?: none Exam - Constitutional Vitals: Temp Pulse Resp BP Pulse Ox 98.8 F 68 16 133/84 95 11/04/21 11:15 11/04/21 11:18 11/04/21 11:15 11/04/21 11:15 11/04/21 11:15 General appearance: Present: no acute distress, well-nourished - EENT Eyes: Present: PERRL ENT: hearing intact, clear oral mucosa - Neck Neck: Present: supple, normal ROM - Respiratory Respiratory effort: normal Respiratory: bilateral: CTA - Cardiovascular Heart Sounds: Present: S1 & S2. Absent: rub, click - Extremities Extremities: pulses symmetrical, No edema Peripheral Pulses: within normal limits - Abdominal General gastrointestinal: Present: soft, non-tender, non-distended, normal bowel sounds Female genitourinary: Present: normal - Integumentary Integumentary: Present: clear, warm, dry - Musculoskeletal Musculoskeletal: gait normal, strength equal bilaterally - Psychiatric Psychiatric: appropriate mood/affect, intact judgment & insight - Neurologic Neurologic: CNII-XII intact, moves all extremities Plan Follow up with: PRIMARY CARE, [Primary Care Provider] - 3-5 Days Forms: AMA Form
== END 2021-11-04 19:45 | disposition left against medical advice (07) ==
LOC: ED 10:51 → 4A 15:35
PROVIDERS: ADMIT Internal Medicine; ATTEND Internal Medicine
DX: I63.9 Cerebral infarction, unspecified (principal); E66.2 Morbid (severe) obesity with alveolar hypoventilation; J44.9 Chronic obstructive pulmonary disease, unspecified; E11.9 Type 2 diabetes mellitus without complications; F17.213 Nicotine dependence, cigarettes, with withdrawal; I10 Essential (primary) hypertension; E78.5 Hyperlipidemia, unspecified; E88.81 Metabolic syndrome and other insulin resistance; Z68.36 Body mass index [BMI] 36.0-36.9, adult; Z86.73 Personal history of transient ischemic attack (TIA), and cerebral infarction without residual deficits; Z79.899 Other long term (current) drug therapy; Z98.890 Other specified postprocedural states; Z79.82 Long term (current) use of aspirin; Z79.4 Long term (current) use of insulin; Z21 Asymptomatic human immunodeficiency virus [HIV] infection status
CPT/HCPCS: 36415; 70450; 71045; 80048; 82962; 85025; 85610; 85730; 87040; 93880; 99285; G0378

== ENCOUNTER 2022-04-30 17:12 | Emergency (ER) | payer MEDICAID ==
[2022-04-30 17:19] VITALS: BP 142/90
== END 2022-04-30 18:00 | disposition left against medical advice (07) ==
LOC: ED 17:12
DX: M54.2 Cervicalgia (principal); Z53.21 Procedure and treatment not carried out due to patient leaving prior to being seen by health care provider